=== PATIENT | female | born 1950 | race Caucasian/White ===

== ENCOUNTER → 2016-09-22 | Outpatient (CLI) | payer BC ==
--- NOTE | 2016-09-23 10:53 | MM ---
Reason for exam: screening (asymptomatic). Last mammogram was performed 1 year and 2 months ago. History: Patient is postmenopausal. Family history of breast cancer in aunt, breast cancer in mother at age 77, and breast cancer in cousin at age 55. Cyst aspiration of the right breast. Excisional biopsy of the left breast. Took estrogen for 12 years beginning at age 46. Physical Findings: A clinical breast exam by your physician is recommended on an annual basis and results should be correlated with mammographic findings. MG Screening Mammo w CAD Bilateral CC and MLO view(s) were taken. Prior study comparison: August 06, 2015, bilateral MG screening mammo w CAD. August 01, 2014, bilateral MG screening mammo w CAD. November 21, 2012, bilateral digital screening mammo w/CAD. The breast tissue is heterogeneously dense. This may lower the sensitivity of mammography. No significant changes when compared with prior studies. ASSESSMENT: Negative, BI-RAD 1 RECOMMENDATION: Routine screening mammogram of both breasts in 1 year.
== END | disposition home or self-care (01) ==
LOC: RADMAMWWP 12:04
PROVIDERS: ATTEND Family Medicine
DX: Z12.31 Encounter for screening mammogram for malignant neoplasm of breast (principal)

== ENCOUNTER → 2016-10-25 | Outpatient (CLI) | payer BC ==
[2016-10-25 13:12] LABS: Appearance,Urine Clear (Clear); Bilirubin,Urine Negative (Negative); Glucose,Urine (UA) Negative (Negative); Ketones,Urine Negative (Negative); Leukocyte Esterase,Urine Negative (Negative); Nitrite,Urine Negative (Negative); PH, Urine 5.5 (5.0-8.0); Protein,Urine Negative (Negative); Specific Gravity,Urine 1.002 (1.001-1.035); UA Billing (MACRO vs. MICRO) CHEM; Urobilinogen,Urine <2.0 mg/dL (<2.0)
[2016-10-25 13:18] LABS: Basophils % (A) 1 %; CH 31.7; CHCM 33.9; Eosinophils # (A) 0.1 k/uL (0-0.7); Eosinophils % (A) 2 %; HCT 38.4 % (34.0-46.0); HDW 2.37; HGB 12.6 gm/dL (11.4-16.0); Luc # (Auto) 0.13; Luc % (Auto) 2; Lymphocytes # (A) 2.7 k/uL (1.0-4.8); Lymphocytes % (A) 41 %; MCH 30.7 pg (25.0-35.0); MCHC 32.7 g/dL (31.0-37.0); MCV 93.9 fL (80.0-100.0); Mean Platelet Volume 7.7; Monocytes # (A) 0.3 k/uL (0-1.0); Monocytes % (A) 5 %; Neutrophils # (A) 3.2 k/uL (1.3-7.7); Neutrophils % (A) 49 %; RBC 4.09 m/uL (3.80-5.40); RDW 13.1 % (11.5-15.5); WBC 6.5 k/uL (3.8-10.6); WBC (Perox) 6.69
[2016-10-25 13:29] LABS: Anion Gap 8 mmol/L; Blood Urea Nitrogen 9 mg/dL (7-17); Calcium 9.6 mg/dL (8.4-10.2); Carbon Dioxide 27 mmol/L (22-30); Chloride 104 mmol/L (98-107); Glucose 86 mg/dL (74-99); Non-African American GFR(MDRD) >60 (>60 ml/min/1.73 sqM); Potassium 4.2 mmol/L (3.5-5.1); Sodium 139 mmol/L (137-145)
== END | disposition home or self-care (01) ==
LOC: LABPAT 11:51
PROVIDERS: ATTEND Urology
DX: Z01.812 Encounter for preprocedural laboratory examination (principal); N39.46 Mixed incontinence; E03.9 Hypothyroidism, unspecified; R31.29 Other microscopic hematuria; R35.0 Frequency of micturition
CPT/HCPCS: 80048; 81003; 85025; 87086

== ENCOUNTER 2016-12-01 07:38 | Observation (INO) | payer BC ==
[2016-11-25 14:16] VITALS: BMI 29.4
[~2016-12-01 07:38] MED LIST: DEXAMETHASONE SOD PHOSPHATE 10 MG/ML 1 ML VIAL IV ONE; HYDROmorphone 0.5 MG/0.5 ML SYRINGE IVP PRN; LACTATED RINGERS 1,000 ML IV SCH; MIDAZOLAM 2 MG/2 ML VIAL IV PRN; ONDANSETRON 4 MG/2 ML VIAL IVP ONE; ceFAZolin 1,000 MG in DEXTROSE/WATER 1 50ML.BAG IV ONE
[2016-12-01 08:18] LABS: Glucose,Whole Blood 108 mg/dL (75-99)
[2016-12-01] MEDS ORDERED: LIDOCAINE 1% 20 ML VIAL (10MG/ML) FOR IV START INTRADERMA ONE (08:19)
[2016-12-01] MEDS ORDERED: fentaNYL (PF) 50 MCG/ML 2 ML AMP ONE (09:33)
[2016-12-01] MEDS ORDERED: PROPOFOL 10 MG/ML 20 ML VIAL IV ONE (09:33)
[2016-12-01] MEDS ORDERED: MIDAZOLAM 2 MG/2 ML VIAL ONE (09:33)
[2016-12-01] MEDS ORDERED: LIDOCAINE 1% INJ 10MG/ML (20 ML MDV) ONE (09:33)
[2016-12-01] MEDS ORDERED: SUCCINYLCHOLINE CHLORIDE 100 MG/5 ML SYR IV ONE (09:33)
[2016-12-01] MEDS ORDERED: VASOPRESSIN 20 UNIT/ML 1 ML VIAL SQ ONE (09:52)
[2016-12-01] MEDS ORDERED: LACTATED RINGERS 1,000 ML IV ONE ×2 (10:03)
[2016-12-01] MEDS ORDERED: BACITRACIN 500 UNIT/GM OINT 28.4 GM TUBE TOPICAL ONE (10:08)
[2016-12-01] MEDS ORDERED: GENTAMICIN 80 MG in SODIUM CHLORIDE 0.9% 500 ML IRRIGATION ONE (10:09)
--- NOTE | 2016-12-01 10:29 | P.OP ---
Preoperative Diagnosis: Stress urinary incontinence Postoperative Diagnosis: Same Procedure(s) Performed: Trans-obturator tape (obtyrx 2) cystoscopy Anesthesia: BOB Surgeon: Carlton Coffman Estimated Blood Loss (ml): 50 Pathology: none sent Condition: stable Disposition: PACU Indications for Procedure: The patient is a 66-year-old female with documented stress urinary incontinence on history physical examination and urodynamic she comes for a trans-obturator tape the risks and complications of the tape and including the mesh controversy have been explained. The risks of infection bleeding pain dyspareunia failure erosion infection injury to adjacent organs have been explained and understood and accepted by this patient. Description of Procedure: The patient is brought to the operating suite. She is given a successful general endotracheal anesthesia. She's placed lithotomy position with sterile abdominal perineal and pelvic prep. A Del Rio catheters introduced sterilely. The labia are sewn laterally with 2-0 silk. A vaginal speculum is introduced. The anterior vaginal mucosa was elevated off the submucosa with 10 mL of a mixture of 20 units of Pitressin and 200 mL of saline. A midline incision is made I dissect lateral the bladder neck bilaterally. I then make 2 incisions in the inguinal crease at the level clitoris. I then pass the introducers through the decision through the obturator foramen around the issue pubic ramus into the vaginal space bilaterally making sure not to injure the vaginal wall. I then remove the Del Rio and perform cystoscopy to rule out bladder injury and there is none. Catheters replaced. Attached the trans-obturator tape to the introducers bilaterally and pull the apex back through the obturator foramen bilaterally. Graft sit in the mid urethra nicely. Then closed the vaginal mucosa with 2-0 Vicryl. I excised the redundant graft at the inguinal incisions bilaterally. The inguinal incisions are closed with 4-0 Vicryl. A vaginal packing is placed. The labial stitches are removed. The urine in the catheter remains clear. The patient is awakened and returned recovery room good condition. Blood loss is approximately 50 mL.
[2016-12-01 11:10] LABS: Glucose,Whole Blood 115 mg/dL (75-99)
[2016-12-01] MEDS: SODIUM CHLORIDE 0.45% 1,000 ML IV SCH (13:35)
[2016-12-01] MEDS: KETOROLAC 30 MG/ML 1 ML VIAL IVP PRN ×2 (14:43→21:13)
[2016-12-01] MEDS: metFORMIN 500 MG TAB PO SCH ×3 (15:22→18:34)
[2016-12-01] MEDS ORDERED: ACETAMINOPHEN TAB 325 MG TAB PO PRN (16:44)
[2016-12-01] MEDS: DICYCLOMINE 10 MG CAP PO SCH ×3 (17:00→21:40)
--- NOTE | 2016-12-01 17:11 | PN ---
PROGRESS NOTE This patient underwent surgery for bladder stress incontinence. The patient is complaining of some heaviness in the substernal area. Patient gives a history that she usually has this kind of heaviness whenever she takes any kind of opioid or narcotic drug. The patient had been evaluated by Dr. Mccabe as an outpatient. There is no definite prior history of myocardial infarction. Recent stress test was normal. Patient is comfortable. No respiratory distress is noted. Blood pressure is 122/78 mmHg. Heart rate, oxygen saturation is normal. First and second heart sounds are normal. Lungs are clear to auscultation and percussion. IMPRESSION: Persistent heaviness in the chest suggestive for atypical chest discomfort. We will repeat the EKG in the morning and get troponin q.6 hours x3. MMODL / IJN: [id number] /
[2016-12-01] MEDS ORDERED: PANTOPRAZOLE 40 MG TABLET PO SCH (18:15)
[2016-12-01] MEDS: cycloSPORINE 0.05% OPHTH 0.4 ML DROPERETTE BOTH EYES SCH (21:11)
[2016-12-02] MEDS: SODIUM CHLORIDE 0.45% 1,000 ML IV SCH (03:54)
[2016-12-02] MEDS ORDERED: LEVOTHYROXINE 100 MCG TAB PO SCH (06:30)
--- NOTE | 2016-12-02 06:50 | P.DS ---
Providers Date of admission: 12/01/16 21:36 Attending physician: Carlton Coffman Consults: 12/01/16 14:36 Consult Physician Stat Consulting Provider: Tessa Gerardo Consult Reason/Comments: chest pain post op Do you want consulting provider notified?: Yes Primary care physician: Stated None Hospital Course: The patient was admitted the hospital 12/01/2016 for a trans-obturator tape. She underwent this without difficulty. Postoperatively she had minimal surgical pain. She once again had an atypical chest pain which she contributes to narcotics. She has had this after every surgery over the years. I had cardiology see her. Her troponins were normal. Her EKG is normal. The patient voids well she'll be discharged home later today in care of her family limited activity. She'll resume her home medications. She'll follow in the office in one week. Tylenol for pain. Patient Condition at Discharge: Good Plan - Discharge Summary New Discharge Prescriptions: No Action Levothyroxine Sodium [Synthroid] 100 mcg PO QAM Celecoxib [CeleBREX] 200 mg PO DAILY Multivitamins, Thera [Multivitamin (formulary)] 1 tab PO DAILY cycloSPORINE [Restasis] 1 drop BOTH EYES BID Biotin 5,000 mcg PO HS Fish Oil/Dha/Epa [Fish Oil 1,200 mg Fish Oil] 1 cap PO DAILY metFORMIN HCL [Glucophage] 500 mg PO AC-SUPPER Potassium 99 mg PO DAILY metFORMIN HCL [Glucophage] 250 mg PO AC-LUNCH Dicyclomine [Bentyl] 10 mg PO TID Aspirin 81 mg PO DAILY Magnesium Oxide [Mag-Ox] 250 mg PO HS Dexlansoprazole [Dexilant] 30 mg PO HS Discharge Medication List Celecoxib [CeleBREX] 200 mg PO DAILY 12/25/13 [History] Levothyroxine Sodium [Synthroid] 100 mcg PO QAM 12/25/13 [History] Multivitamins, Thera [Multivitamin (formulary)] 1 tab PO DAILY 02/04/15 [History ] cycloSPORINE [Restasis] 1 drop BOTH EYES BID 04/21/15 [History] Biotin 5,000 mcg PO HS 10/25/16 [History] Fish Oil/Dha/Epa [Fish Oil 1,200 mg Fish Oil] 1 cap PO DAILY 10/25/16 [History] Potassium 99 mg PO DAILY 10/25/16 [History] metFORMIN HCL [Glucophage] 500 mg PO AC-SUPPER 10/25/16 [History] Dicyclomine [Bentyl] 10 mg PO TID 11/25/16 [History] metFORMIN HCL [Glucophage] 250 mg PO AC-LUNCH 11/25/16 [History] Aspirin 81 mg PO DAILY 12/01/16 [History] Dexlansoprazole [Dexilant] 30 mg PO HS 12/01/16 [History] Magnesium Oxide [Mag-Ox] 250 mg PO HS 12/01/16 [History] Follow up Appointment(s)/Referral(s): Carlton Coffman MD [STAFF PHYSICIAN] - 1 Week Activity/Diet/Wound Care/Special Instructions: Patient may shower. Resume home medications. Discharge Disposition: HOME SELF-CARE
[2016-12-02 08:09] VITALS: TEMP 98
[2016-12-02] MEDS: cycloSPORINE 0.05% OPHTH 0.4 ML DROPERETTE BOTH EYES SCH (09:44)
[2016-12-02] MEDS: DICYCLOMINE 10 MG CAP PO SCH (09:45)
[2016-12-02 11:20] VITALS: RESP 16
[2016-12-02] MEDS: metFORMIN 500 MG TAB PO SCH (12:58)
[2016-12-02 13:49] VITALS: BP 121/56; PULSE 62
== END 2016-12-02 15:20 | disposition home or self-care (01) ==
LOC: OR 07:38 → 6PED 09:40 → OR 21:36
PROVIDERS: ADMIT Urology; ATTEND Urology
DX: N39.3 Stress incontinence (female) (male) (principal); G89.18 Other acute postprocedural pain; R07.89 Other chest pain; R30.0 Dysuria; R35.0 Frequency of micturition; R35.1 Nocturia; E03.9 Hypothyroidism, unspecified; K21.9 Gastro-esophageal reflux disease without esophagitis; K44.9 Diaphragmatic hernia without obstruction or gangrene; M19.90 Unspecified osteoarthritis, unspecified site; M81.0 Age-related osteoporosis without current pathological fracture; M79.7 Fibromyalgia; Z90.710 Acquired absence of both cervix and uterus; Z79.82 Long term (current) use of aspirin; Z79.2 Long term (current) use of antibiotics; Z79.899 Other long term (current) drug therapy; Z88.5 Allergy status to narcotic agent; Z90.721 Acquired absence of ovaries, unilateral; Z79.1 Long term (current) use of non-steroidal anti-inflammatories (NSAID)
CPT/HCPCS: 57288; 93005 ×2; 84484 ×2; G0378 ×2; C1771; J2250; J1580; J1100; J2405; J2001; J3010; J1885; J0690; J0330; J2704

== ENCOUNTER 2017-04-12 07:36 | Day surgery (SDC) | payer BC ==
[2017-04-11 08:29] VITALS: BMI 29.2
[~2017-04-12 07:36] MED LIST changes: -DEXAMETHASONE SOD PHOSPHATE 10 MG/ML 1 ML VIAL IV ONE; -HYDROmorphone 0.5 MG/0.5 ML SYRINGE IVP PRN; -MIDAZOLAM 2 MG/2 ML VIAL IV PRN; -ONDANSETRON 4 MG/2 ML VIAL IVP ONE; -ceFAZolin 1,000 MG in DEXTROSE/WATER 1 50ML.BAG IV ONE
[2017-04-12] MEDS ORDERED: LACTATED RINGERS 1,000 ML IV ONE (07:50)
[2017-04-12 07:52] VITALS: TEMP 98.3
[2017-04-12 08:20] LABS: Glucose,Whole Blood 115 mg/dL (75-99)
[2017-04-12] MEDS ORDERED: LIDOCAINE 1% INJ 10MG/ML (20 ML MDV) ONE (08:37)
[2017-04-12] MEDS ORDERED: PROPOFOL 10 MG/ML 20 ML VIAL IV ONE (08:37)
[2017-04-12] MEDS ORDERED: GLYCOPYRROLATE 0.2 MG/ML 2 ML VIAL ONE (08:37)
--- NOTE | 2017-04-12 09:11 | P.PCN ---
Date of Procedure: 04/12/17 Procedure(s) Performed: Procedure: Esophagogastroduodenoscopy and biopsy. Preoperative diagnosis: Chronic reflux symptoms. Postoperative diagnosis: 1. Small sliding hiatal hernia with no obvious esophagitis or complicated reflux disease. 2. Mild antral gastritis. 3. Multiple biopsies obtained from the duodenum, antrum and esophagus. Preparation sedation: Was provided by anesthesia. Brief clinical history: The patient is a 66-year-old female who is scheduled for this evaluation because of chronic reflux symptoms and issues with swallowing. The patient has history of RA, fibromyalgia and connective tissue disorders and has been evaluated in February 2015 because of reflux issues and hiatal hernia and a motility study showed ineffective esophageal peristalsis and low lower esophageal sphincter pressure. This evaluation is to assess for esophagitis, strictures or other pathology. Procedure: With the patient on her left lateral decubitus position and after informed consent and adequate sedation, I passed the Olympus-GIF 160 video upper endoscope through the cricopharyngeus down the esophagus gastroesophageal junction was at around 36 cm from the incisors and there was a small 1-2 cm sliding hiatal hernia. The esophagus did not show any obvious erosions, ulcers , strictures or Alvarez's esophagus. Occasionally, I had to suction secretions that would pool in the esophagus during the exam raising the possibility of decreased motility. The endoscope was then passed into the stomach which was insufflated with air and inspected in detail including the retroflex view in the cardia. There was some mottling and erythema in the antrum but no ulcers or erosions. Pyloric channel, duodenal bulb, post bulbar area and descending duodenum appeared within normal limits. Because of her symptoms, I obtained biopsies from the duodenum, antrum and esophagus then the endoscope was withdrawn. The patient tolerated the procedure well. Plan: The patient was reassured. Will await pathology results and make further plans based on her course and biopsy results. She will follow-up with you as planned and I would be happy to see in the office if her symptoms persist.
[2017-04-12 09:30] VITALS: BP 114/74; PULSE 77; RESP 16
== END 2017-04-12 09:55 | disposition home or self-care (01) ==
LOC: ORWHC2ENDO 07:36
DX: K31.89 Other diseases of stomach and duodenum (principal); K44.9 Diaphragmatic hernia without obstruction or gangrene; K21.9 Gastro-esophageal reflux disease without esophagitis; M79.7 Fibromyalgia; M06.9 Rheumatoid arthritis, unspecified; M35.9 Systemic involvement of connective tissue, unspecified; E11.9 Type 2 diabetes mellitus without complications; E07.9 Disorder of thyroid, unspecified; Z79.84 Long term (current) use of oral hypoglycemic drugs; Z79.82 Long term (current) use of aspirin; Z79.899 Other long term (current) drug therapy; Z88.5 Allergy status to narcotic agent; Z91.09 Other allergy status, other than to drugs and biological substances
CPT/HCPCS: 88305; 43239; J2001; J2704

== ENCOUNTER 2018-08-16 07:08 | Day surgery (SDC) | payer MEDICARE ==
[~2018-08-16 07:08] MED LIST changes: +LIDOCAINE 1% 20 ML VIAL (10MG/ML) FOR IV START INTRADERMA PRN
[2018-08-16 07:22] VITALS: TEMP 97.4
[2018-08-16 07:26] LABS: Glucose,Whole Blood 116 mg/dL (75-99)
[2018-08-16] MEDS ORDERED: PROPOFOL 10 MG/ML 20 ML VIAL IV ONE (07:42)
--- NOTE | 2018-08-16 08:08 | P.PCN ---
Date of Procedure: 08/16/18 Procedure(s) Performed: BRIEF HISTORY: Patient is a 67-year-old pleasant female, scheduled for an elective colonoscopy as a part of screening for colorectal rectal neoplasia. PROCEDURE PERFORMED: Colonoscopy with snare polypectomy. PREOPERATIVE DIAGNOSIS: Screening for colon cancer. IV sedation per Anesthesia. PROCEDURE: After informed consent was obtained, the patient, was brought into the endoscopy unit. IV sedation was administered by Anesthesia under continuous monitoring. Digital rectal examination was normal. Initially the Olympus CF-160 flexible video colonoscope was then inserted in the rectum, gradually advanced into the cecum without any difficulty. Careful examination was performed as the scope was gradually being withdrawn. Ileocecal valve and the appendiceal orifice were visualized and appeared normal. Prep was excellent. Mucosa of the cecum, ascending colon, transverse colon, descending colon, sigmoid colon, and rectum appeared normal. In the distal rectum there was a 5 mm sessile polyp that was removed by snare polypectomy. Retroflexion was performed in the rectum and no lesions were seen. The patient tolerated the procedure well. IMPRESSION: 5 mm distal rectal polyp status post polypectomy Rest of the colon appeared normal RECOMMENDATIONS: Findings of this examination were discussed with the patient as well as a family. She was advised to follow with the biopsy results. If the biopsy shows adenoma, she can have a repeat colonoscopy in 5 years.
[2018-08-16 08:26] VITALS: BP 131/70; PULSE 60; RESP 18
== END 2018-08-16 09:07 | disposition home or self-care (01) ==
LOC: ORWHC2ENDO 07:08
PROVIDERS: ATTEND Internal Medicine Gastroenterology
DX: Z12.11 Encounter for screening for malignant neoplasm of colon (principal); K62.1 Rectal polyp; E11.9 Type 2 diabetes mellitus without complications; E07.9 Disorder of thyroid, unspecified; M06.9 Rheumatoid arthritis, unspecified; M79.7 Fibromyalgia; Z88.8 Allergy status to other drugs, medicaments and biological substances; Z88.5 Allergy status to narcotic agent
CPT/HCPCS: 88305; 45385; J2704

== ENCOUNTER → 2019-01-23 | Outpatient (CLI) | payer MEDICARE ==
--- NOTE | 2019-01-23 15:30 | BD ---
EXAMINATION TYPE: Axial Bone Density DATE OF EXAM: 01/23/2019 COMPARISON: NONE CLINICAL HISTORY: Z 78.0 Height: 63.5 Weight: 182 FRAX RISK QUESTIONS: Alcohol (3 or more units per day): no Family History (Parent hip fracture): yes Glucocorticoids (More than 3mos): inhaler occasionally (Ex: prednisone, prednisolone, methylprednisolone, dexamethasone, and hydrocortisone). History of Fracture in Adulthood: no Secondary Osteoporosis: 1. Type 1 Diabetes: no 2. Hyperthyroidism: no 3. Menopause before 45: yes 4. Malnutrition: no 5. Chronic liver disease: no Rheumatoid Arthritis: unsure Current Tobacco Use: no RISK FACTORS HISTORY OF: Family History of Osteoporosis: not to knowledge of patient Active: yes Diet low in dairy products/other sources of calcium: no Postmenopausal woman: yes Take estrogen and/or progesterone medications: not now How long: age [age] Lost more than 2 inches in height since high school: no Frequent falls: no Poor Health: no Hyperparathyroidism: no Adrenal Insufficiency: no MEDICATIONS: Prednisone or other steroids: occasionally inhaler Thyroid Medications: yes Which medication: Levothyroxine How Long: well over 5 years, perhaps more Osteoporosis Medications: no Additional Medications: vitamin D, GERD med, cholesterol med; metformin; Lisinopril, celebrex Additional History: one side of thyroid removed-nodules; bilateral knee replacements; type 2 diabetic EXAM MEASUREMENTS: Bone mineral densitometry was performed using the [employer] System. Bone mineral density as measured about the Lumbar spine is: ----- L1-L4(G/cm2): 1.498 T Score Values are as follows: ----- L2: 2.3 ----- L3: 3.9 ----- L4: 2.9 ----- L1-L4: 2.6 Bone mineral density no previous at this facility; previous elsewhere Bone mineral density about the R hip (g/cm2): 1.079 Bone mineral density about the L hip (g/cm2): 1.191 T Score values are as follows: -----R Neck: 0.3 -----L Neck: 1.1 -----R Total: 1.4 -----L Total: 1.7 Bone mineral density no previous at this facility; previous elsewhere IMPRESSION: Normal (Values between +1 and -1 indicate normal bone mass). Consider repeating this study in 5 year s or sooner if there is some new clinical indication. NOTE: T-SCORE=SD OF THE YOUNG ADULT MEAN.
== END | disposition home or self-care (01) ==
LOC: RADBDWWP 13:13
PROVIDERS: ATTEND Internal Medicine
DX: Z78.0 Asymptomatic menopausal state (principal)
CPT/HCPCS: 77080

== ENCOUNTER → 2019-02-28 | Outpatient (CLI) | payer MEDICARE ==
--- NOTE | 2019-03-01 14:21 | MM ---
Reason for exam: additional evaluation requested from abnormal screening. Last mammogram was performed less than 1 month ago. History: Patient is postmenopausal. Family history of breast cancer in aunt, breast cancer in mother at age 77, and breast cancer in cousin at age 55. Cyst aspiration of the right breast. Excisional biopsy of the left breast. Took estrogen for 12 years beginning at age 46. Physical Findings: Nurse did not find any significant physical abnormalities on exam. MG 3D Work Up W/Cad RT Spot compression CC, spot compression MLO, and ML view(s) were taken of the right breast. Prior study comparison: February 19, 2019, bilateral MG screening mammo w CAD. September 22, 2016, bilateral MG screening mammo w CAD. The breast tissue is heterogeneously dense. This may lower the sensitivity of mammography. Finding #1: There is a 9 mm mass in the upper quadrant, central position of the right breast. Finding #2: There are typically benign calcifications in the right breast. These results were verbally communicated with the patient and result sheet given to the patient on 02/28/19. ASSESSMENT: Incomplete: need additional imaging evaluation, BI-RAD 0 RECOMMENDATION: Ultrasound of the right breast.
--- NOTE | 2019-03-01 14:23 | USB ---
Reason for exam: additional evaluation requested from abnormal screening. History: Patient is postmenopausal. Family history of breast cancer in aunt, breast cancer in mother at age 77, and breast cancer in cousin at age 55. Cyst aspiration of the right breast. Excisional biopsy of the left breast. Took estrogen for 12 years beginning at age 46. US Breast Workup Limited RT Right limited breast ultrasound including focal area of concern, retroareolar and axilla demonstrates a 0.8 x 0.6 x 0.5cm oval, hypoechoic lesion at 12 o'clock, no increase through transmission. These results were verbally communicated with the patient and result sheet given to the patient on 02/28/19. ASSESSMENT: Suspicious, BI-RAD 4 RECOMMENDATION: Ultrasound core biopsy of the right breast. (+/- FNA) Called Dr. Fox's office with mammographic findings. Biopsy scheduled for 03/19/19 at 12:20. PRELIMINARY REPORT CALLED AND FAXED TO DR. FOX ON 03/01/19.
== END | disposition home or self-care (01) ==
LOC: RADMAMWWP 14:50
PROVIDERS: ATTEND Internal Medicine
DX: R92.8 Other abnormal and inconclusive findings on diagnostic imaging of breast (principal)
CPT/HCPCS: 77065; 76642; G0279; 77061

== ENCOUNTER → 2019-03-19 | Day surgery (SDC) | payer MEDICARE ==
[2019-03-19 11:34] VITALS: BP 139/83; PULSE 71; RESP 16; TEMP 98.5
--- NOTE | 2019-03-19 13:05 | USB ---
EXAMINATION TYPE: US biopsy breast VAD RT, MG diagnostic mammo RT wo CAD DATE OF EXAM: 03/19/2019 CLINICAL HISTORY: R92.8 Abnormal Mammogram. TECHNIQUE: Ultrasound guided core biopsy of right breast. COMPARISON: Ultrasound of the right breast dated 02/28/2019 FINDINGS: The procedure of ultrasound guided core biopsy was explained to the patient. Benefits, alternatives, and risks were discussed. An informed consent was then obtained. Preprocedural timeout was performed. The patient was placed in supine positioning for imaging and for the procedure. The overlying skin was prepped and draped in usual sterile fashion. 10 cc of 1% lidocaine was used as anesthetic into the skin and subcutaneous tissue up an 8mm hypoechoic mass at the 12:00 position in the right breast in zone A. Under ultrasound guidance, a 12-gauge vacuum assisted biopsy gun device was used to obtain 4 core samples after unsuccessful attempt at aspiration with an 18- gauge spinal needle. Following this, a coil-shaped biopsy marker was left in the mass. Postprocedure mammogram demonstrates appropriate biopsy marker placement concordant with the mammographic mass. The patient tolerated the procedure well without any immediate complication. The patient was kept in the radiology department for short stay after the procedure and then discharged home in stable condition. IMPRESSION: Successful, uncomplicated ultrasound guided core biopsy of area of an 8 mm right breast mass at the 12:00 position, full pathology results to follow. Pathology Results: Benign RIGHT BREAST, NEEDLE CORE BIOPSY: Benign breast parenchyma with fibroadenomatoid hyperplasia and apocrine metaplasia. Recommendation Follow up mammogram of the right breast in 6 months. ARMIN
== END ==
LOC: RADUSWWP 11:17
PROVIDERS: ATTEND Internal Medicine
DX: D24.1 Benign neoplasm of right breast (principal); N60.81 Other benign mammary dysplasias of right breast
CPT/HCPCS: 88305; 77065; 19083; A4648; J2001

== ENCOUNTER → 2019-12-07 | Outpatient (CLI) | payer MEDICARE ==
[2019-12-08 01:21] LABS: Chol/HDL Ratio 2.5
== END | disposition home or self-care (01) ==
LOC: LABWHC1 14:11
PROVIDERS: ATTEND Internal Medicine Clinical Cardiac Electrophysiology
DX: E78.5 Hyperlipidemia, unspecified (principal)
CPT/HCPCS: 36415; 80061

== ENCOUNTER → 2019-12-07 | Outpatient (CLI) | payer MEDICARE ==
--- NOTE | 2019-12-07 14:22 | MM ---
Reason for exam: follow-up at short interval from prior study. Last mammogram was performed 9 months ago. History: Patient is postmenopausal. Family history of breast cancer in aunt, breast cancer in mother at age 77, and breast cancer in cousin at age 55. Benign US biopsy breast VAD RT of the right breast, March 19, 2019. Cyst aspiration of the right breast. Excisional biopsy of the left breast. Took estrogen for 12 years beginning at age 46. Physical Findings: Nurse did not find any significant physical abnormalities on exam. MG 3D Diag Mammo W/Cad RT CC and MLO view(s) were taken of the right breast. Prior study comparison: March 19, 2019, right breast MG diagnostic mammo RT wo CAD. February 28, 2019, right breast MG 3d work up w/cad RT. The breast tissue is heterogeneously dense. This may lower the sensitivity of mammography. Finding: There are typically benign vascular calcifications in the upper outer quadrant of the right breast. Previous mammotome biopsy in the right breast. There is no discrete abnormality. These results were verbally communicated with the patient and result sheet given to the patient on 12/07/19. ASSESSMENT: Benign, BI-RAD 2 RECOMMENDATION: Return to routine screening mammogram schedule for both breasts. Back on schedule for February 2020.
== END | disposition home or self-care (01) ==
LOC: RADMAMWWP 13:19
PROVIDERS: ATTEND Internal Medicine
DX: R92.8 Other abnormal and inconclusive findings on diagnostic imaging of breast (principal)
CPT/HCPCS: 77065; G0279; 77061

== ENCOUNTER → 2020-05-13 | Outpatient (CLI) | payer MEDICARE ==
--- NOTE | 2020-05-15 10:56 | MM ---
Reason for exam: screening (asymptomatic). Last mammogram was performed 5 months ago. History: Patient is postmenopausal. Family history of breast cancer in aunt, breast cancer in mother at age 77, and breast cancer in cousin at age 55. Benign US biopsy breast VAD RT of the right breast, March 19, 2019. Cyst aspiration of the right breast. Excisional biopsy of the left breast. Took estrogen for 12 years beginning at age 46. Physical Findings: A clinical breast exam by your physician is recommended on an annual basis and results should be correlated with mammographic findings. MG 3D Screening Mammo W/Cad Bilateral CC and MLO view(s) were taken. Prior study comparison: December 07, 2019, right breast MG 3d diag mammo w/cad RT. March 19, 2019, right breast MG diagnostic mammo RT wo CAD. No significant changes when compared with prior studies. ASSESSMENT: Benign, BI-RAD 2 RECOMMENDATION: Routine screening mammogram of both breasts in 1 year.
== END | disposition home or self-care (01) ==
LOC: RADMAMWWP 13:59
PROVIDERS: ATTEND Internal Medicine
DX: Z12.31 Encounter for screening mammogram for malignant neoplasm of breast (principal); Z78.0 Asymptomatic menopausal state; Z80.3 Family history of malignant neoplasm of breast
CPT/HCPCS: 77063; 77067

== ENCOUNTER → 2021-07-27 | Outpatient (CLI) | payer MEDICARE ==
--- NOTE | 2021-07-27 17:43 | BD ---
EXAMINATION TYPE: Axial Bone Density DATE OF EXAM: 07/27/2021 COMPARISON: 01/23/2019 CLINICAL HISTORY: 70 years year old Female. ICD-10 CODE: M81.0 AGE-RELATED OSTEOPOROSIS Height: 63 IN Weight: 174 LBS FRAX RISK QUESTIONS: Family History (Parent hip fracture): YES MOTHER Secondary Osteoporosis: 3. Menopause before 45: PARTIAL HYST AGE 31 Rheumatoid Arthritis: YES RISK FACTORS HISTORY OF: Active: YES Diet low in dairy products/other sources of calcium: YES Postmenopausal woman: PARTIAL HYST AGE 31 Take estrogen and/or progesterone medications: NOT NOW How long: TOOK FOR 10 YEARS MEDICATIONS: Thyroid Medications: YES Which medication: Levothyroxine How Lon YEARS Additional Medications: CALCIUM, VIT D, CELEBREX, LEVOTHYROXINE, FARXIGA, OMEPRAZOLE, FAMOTIDINE, [place], PRAVASTATIN, MONTELUKAST, SYMBICORT,MAGNESIUM, POTASIUM, MELATONIN, EXAM MEASUREMENTS: Bone mineral densitometry was performed using the [employer] System. Bone mineral density as measured about the Lumbar spine is: ----- L1-L4(G/cm2): 1.445 T Score Values are as follows: ----- L1: 0.3 ----- L2: 1.8 ----- L3: 3.0 ----- L4: 3.0 ----- L1-L4: 2.2 Bone mineral density has: Decreased -3.0% since study of: 01/23/2019 Bone mineral density about the R hip (g/cm2): 1.080 Bone mineral density about the L hip (g/cm2): 1.177 T Score values are as follows: -----R Neck: 0.3 -----L Neck: 1.0 -----R Total: 1.2 -----L Total: 1.7 Bone mineral density has: Decreased -0.7% since study of: 01/23/2019 FRAX%s: The graph provided illustrates a 12.9 chance for a major osteoporotic fx and a 0.7 chance for the hips probability for fx in 10 years time. IMPRESSION: Normal (Values between +1 and -1 indicate normal bone mass). Consider repeating this study in 5 year s or sooner if there is some new clinical indication. NOTE: T-SCORE=SD OF THE YOUNG ADULT MEAN.
--- NOTE | 2021-07-28 09:29 | MM ---
Reason for Exam: Screening (asymptomatic). Last mammogram was performed 1 year(s) and 2 month(s) ago. Patient History: Menarche at age 13. First Full-Term at age 25. Left ovary removed at age 31. Right ovary removed at age 31. Hysterectomy at age 31. Postmenopausal. Estrogen for 12 years from age 46 until age 58. Cyst Aspiration on the Right side. Excisional Biopsy on the Left side. 03/19/2019, Benign Core Biopsy on the right side. Maternal cousin had breast cancer, age 55. Maternal aunt had breast cancer, age 50. Mother had breast cancer, age 77. Risk Values: Chasidy 5 year model risk: 4.9%. NCI Lifetime model risk: 14.5%. Prior Study Comparison: 03/19/2019 Right Diagnostic Mammogram, [facility]. 12/07/2019 Right Diagnostic Mammogram, [facility]. 05/13/2020 Bilateral Screening Mammogram, [facility]. Tissue Density: The breast tissue is heterogeneously dense. This may lower the sensitivity of mammography. Findings: Analyzed By CAD. There is no suspicious group of microcalcifications or new suspicious mass in either breast. Benign calcifications noted. Surgical clip in the right breast. Overall Assessment: Benign, BI-RAD 2 Management: Screening Mammogram of both breasts in 1 year. A clinical breast exam by your physician is recommended on an annual basis and results should be correlated with mammographic findings. Electronically signed and approved by: Román Kumar M.D. Radiologis
== END | disposition home or self-care (01) ==
LOC: RADMAMWWP 09:03
PROVIDERS: ATTEND Internal Medicine
DX: Z12.31 Encounter for screening mammogram for malignant neoplasm of breast (principal); Z78.0 Asymptomatic menopausal state; Z80.3 Family history of malignant neoplasm of breast
CPT/HCPCS: 77063; 77067; 77080

== ENCOUNTER → 2022-07-28 | Outpatient (CLI) | payer MEDICARE ==
--- NOTE | 2022-07-29 20:33 | MM ---
Reason for Exam: Screening (asymptomatic). Last screening mammogram was performed 12 month(s) ago. Patient History: Menarche at age 13. First Full-Term at age 25. Left ovary removed at age 31. Right ovary removed at age 31. Hysterectomy at age 31. Postmenopausal. Estrogen for 12 years from age 46 until age 58. Cyst Aspiration on the Right side. Excisional Biopsy on the Left side. 03/19/2019, Benign Core Biopsy on the right side. Maternal cousin had breast cancer, age 55. Maternal aunt had breast cancer, age 50. Mother had breast cancer, age 77. Risk Values: Chasidy 5 year model risk: 4.9%. NCI Lifetime model risk: 13.9%. Prior Study Comparison: 12/07/2019 Right Diagnostic Mammogram, [facility]. 05/13/2020 Bilateral Screening Mammogram, [facility]. 07/27/2021 Bilateral MG 3D screening mammo w/cad, [facility]. Tissue Density: The breast tissue is heterogeneously dense. This may lower the sensitivity of mammography. Findings: Analyzed By CAD. Microclip on the right from prior biopsy. Areas of asymmetric density remain unchanged. There is no suspicious group of microcalcifications or new suspicious mass in either breast. Overall Assessment: Benign, BI-RAD 2 Management: Screening Mammogram of both breasts in 1 year. See note below in regards to patient's increased 5 year Chasidy score. Patient should continue monthly self-breast exams. A clinical breast exam by your physician is recommended on an annual basis. This exam should not preclude additional follow-up of suspicious palpable abnormalities. Note on Chasidy scores and lifetime risk: 1. A Chasidy score greater than 3% is considered moderate risk. If this is the case, consider specialist referral to assess eligibility for a risk reducing agent. 2. If overall lifetime risk for the development of breast cancer is 20% or higher, the patient may qualify for future screening with alternating mammogram and breast MRI. Electronically signed and approved by: Sharifa Mason M.D. Radiologist
== END | disposition home or self-care (01) ==
LOC: RADMAMWWP 09:36
PROVIDERS: ATTEND Internal Medicine
DX: Z12.31 Encounter for screening mammogram for malignant neoplasm of breast (principal); Z80.3 Family history of malignant neoplasm of breast; Z78.0 Asymptomatic menopausal state
CPT/HCPCS: 77063; 77067

== ENCOUNTER 2022-08-09 07:29 | Emergency (ER) | payer MEDICARE ==
[2022-08-09] MEDS ORDERED: SODIUM CHLORIDE 0.9% 1,000 ML IV ONE (08:15)
[2022-08-09] MEDS ORDERED: methylPREDNISolone SOD SUCCI 125 MG/2 ML VIAL IV STA (08:15)
[2022-08-09 08:37] LABS: Basophils % (A) 0 %; Eosinophils # (A) 0.1 k/uL (0-0.7); Eosinophils % (A) 1 %; HCT 38.6 % (34.0-46.0); HGB 12.6 gm/dL (11.4-16.0); Lymphocytes # (A) 0.9 k/uL (1.0-4.8); Lymphocytes % (A) 12 %; MCH 30.3 pg (25.0-35.0); MCHC 32.5 g/dL (31.0-37.0); MCV 93.2 fL (80.0-100.0); Mean Platelet Volume 8.1; Monocytes # (A) 0.4 k/uL (0-1.0); Monocytes % (A) 5 %; Neutrophils # (A) 5.8 k/uL (1.3-7.7); Neutrophils % (A) 79 %; Platelet Count 214 k/uL (150-450); RBC 4.14 m/uL (3.80-5.40); WBC 7.3 k/uL (3.8-10.6)
[2022-08-09 08:50] LABS: ALT 20 U/L (4-34); AST 23 U/L (14-36); African American GFR (CKD) >90 (>60 ml/min/1.73 sqM); Alkaline Phosphatase 62 U/L (38-126); Anion Gap 8 mmol/L; Blood Urea Nitrogen 12 mg/dL (7-17); Calcium 8.3 mg/dL (8.4-10.2); Carbon Dioxide 23 mmol/L (22-30); Chloride 107 mmol/L (98-107); Glucose 120 mg/dL (74-99); Non-African American GFR(CKD) 80 (>60 ml/min/1.73 sqM); Potassium 4.2 mmol/L (3.5-5.1); Sodium 138 mmol/L (137-145); Total Bilirubin 0.3 mg/dL (0.2-1.3); Total Protein 7.2 g/dL (6.3-8.2)
--- NOTE | 2022-08-09 08:55 | XR ---
EXAMINATION TYPE: XR chest 2V DATE OF EXAM: 08/09/2022 COMPARISON: None INDICATION: Cough x4 days pain TECHNIQUE: Frontal and lateral views of the chest are obtained. FINDINGS: The heart size is normal. The pulmonary vasculature is normal. The lungs are clear. IMPRESSION: 1. No acute pulmonary process.
[2022-08-09] MEDS ORDERED: IPRATROPIUM-ALBUTEROL 3 ML NEB INHALATION STA (09:27)
--- NOTE | 2022-08-09 09:51 | ED ---
General Adult HPI - General Chief complaint: Upper Respiratory Infection Stated complaint: sob,cough Time Seen by Provider: 08/09/22 07:48 Source: patient, family Mode of arrival: wheelchair Limitations: no limitations - History of Present Illness Initial comments: 71-year-old female presents emergency Department with report of cough, congestion and shortness of breath for the past 2 days. Her mother has similar symptoms and is hospitalized. Patient does have a history of mild intermittent asthma. She has been using her albuterol nebulizer with only some improvement in her symptoms. She denies fevers. No nausea or vomiting. Has had mild diarr hea. No black or bloody stools. No chest pain. She did take a Covid test at home yesterday which was negative. No other alleviating, precipitating or modifying factors - Related Data Home Medications Medication Instructions Recorded Confirmed Celecoxib [CeleBREX] 200 mg PO HS 12/25/13 08/12/22 Levothyroxine Sodium [Synthroid] 100 mcg PO DAILY 12/25/13 08/12/22 Montelukast [Singulair] 10 mg PO HS 08/15/18 08/12/22 Omeprazole 20 mg PO BID 08/15/18 08/12/22 Pravastatin Sodium [Pravachol] 20 mg PO HS 08/15/18 08/12/22 Losartan [Cozaar] 12.5 mg PO DAILY 03/08/19 08/12/22 Albuterol Inhaler [Ventolin Hfa 2 puff INHALATION RT-QID PRN 08/12/22 08/12/22 Inhaler] Dapagliflozin Propanediol [Farxiga] 5 mg PO DAILY 08/12/22 08/12/22 Famotidine [Pepcid] 40 mg PO HS 08/12/22 08/12/22 Ipratropium Nebulized [Atrovent 0.5 mg INHALATION RT-Q6H PRN 08/12/22 08/12/22 Nebulized 0.2 MG/ML] Previous Rx's Medication Instructions Recorded predniSONE [Deltasone] 20 mg PO BID #10 tab 08/09/22 Benzonatate [Tessalon Perles] 200 mg PO TID #21 cap 08/16/22 predniSONE [Deltasone] 40 mg PO DAILY #20 tab 08/16/22 Allergies Allergy/AdvReac Type Severity Reaction Status Date / Time cigarette smoke Allergy Unknown Dyspnea Verified 08/12/22 06:59 Opioids - Morphine Analogues Allergy Dyspnea Verified 08/12/22 06:59 tramadol Allergy Anaphylaxis, Verified 08/12/22 06:59 chest pain codeine AdvReac Anaphylaxis, Verified 08/12/22 06:59 chest pain cleaning chemicals AdvReac Mild Dyspnea Uncoded 08/12/22 06:59 Review of Systems ROS Statement: Those systems with pertinent positive or pertinent negative responses have been documented in the HPI. ROS Other: All systems not noted in ROS Statement are negative. Past Medical History Past Medical History: Asthma, Diabetes Mellitus, Fibromyalgia, GERD/Reflux, Rheumatoid Arthritis (RA), Thyroid Disorder Additional Past Medical History / Comment(s): covid X2 12/29 History of Any Multi-Drug Resistant Organisms: None Reported Past Surgical History: Bladder Surgery, Cholecystectomy, Heart Catheterization, Hysterectomy, Joint Replacement, Orthopedic Surgery Additional Past Surgical History / Comment(s): partial thyroidectomy. luis shoulder surgery, luis knee arthroscopy, bilateral knee replacement, luis cataracts, rt.trigger finger, Past Anesthesia/Blood Transfusion Reactions: Motion Sickness, Postoperative Nausea & Vomiting (PONV) Additional Past Anesthesia/Blood Transfusion Reaction / Comment(s): DIFFICULTY WAKING UP. PT CAN'T TOLERATE OPIOIDS. WAKES UP AFTER SURGERY WITH CHEST PAIN WHEN EVER GIVEN OPIOIDS. Past Psychological History: No Psychological Hx Reported Smoking Status: Never smoker Past Alcohol Use History: Occasional Past Drug Use History: None Reported - Past Family History Father Family Medical History: Cancer Additional Family Medical History / Comment(s): lung Mother Family Medical History: Cancer Additional Family Medical History / Comment(s): breast Sister(s) Family Medical History: Cancer Additional Family Medical History / Comment(s): SKIN CA General Exam Limitations: no limitations General appearance: alert, in no apparent distress Head exam: Present: atraumatic, normocephalic, normal inspection Eye exam: Present: normal appearance, PERRL, EOMI. Absent: scleral icterus, conjunctival injection, periorbital swelling ENT exam: Present: normal exam, mucous membranes moist Neck exam: Present: normal inspection. Absent: tenderness, meningismus, lymphad enopathy Respiratory exam: Present: wheezes (mild), other (no respiratory distress). Absent: respiratory distress, rales, rhonchi, stridor Cardiovascular Exam: Present: regular rate, normal rhythm, normal heart sounds. Absent: systolic murmur, diastolic murmur, rubs, gallop, clicks GI/Abdominal exam: Present: soft, normal bowel sounds. Absent: distended, tenderness, guarding, rebound, rigid Extremities exam: Present: normal inspection, full ROM, normal capillary refill. Absent: tenderness, pedal edema, joint swelling, calf tenderness Back exam: Present: normal inspection Neurological exam: Present: alert, oriented X3, CN II-XII intact Psychiatric exam: Present: normal affect, normal mood Skin exam: Present: warm, dry, intact, normal color. Absent: rash Course Vital Signs 08/09/22 08/09/22 08/09/22 07:41 08:26 09:44 Temperature 99.7 F H Pulse Rate 95 82 86 Respiratory 18 20 Rate Blood Pressure 112/61 108/56 O2 Sat by Pulse 94 L 96 Oximetry 08/09/22 08/09/22 09:56 10:07 Temperature 98.5 F Pulse Rate 90 82 Respiratory 18 Rate Blood Pressure 111/54 O2 Sat by Pulse 94 L Oximetry Medical Decision Making - Medical Decision Making Was pt. sent in by a medical professional or institution (, PA, HOSIERY KNITTER, urgent care, hospital, or prison...) When possible be specific @ -No Did you speak to anyone other than the patient for history (EMS, parent, family, police, friend...)? What history was obtained from this source @ - Did you review nursing and triage notes (agree or disagree)? Why? @ -I reviewed and agree with nursing and triage notes Were old charts reviewed (outside hosp., previous admission, EMS record, old EKG, old radiological studies, urgent care reports/EKG's, prison records)? Report findings @ -No old charts were reviewed Differential Diagnosis (chest pain, altered mental status, abdominal pain women, abdominal pain men, vaginal bleeding, weakness, fever, dyspnea, syncope, headache, dizziness, GI bleed, back pain, seizure, CVA, palpatations, mental health, musculoskeletal)? @ -covid, influenza, uri, pneumonia, asthma exacerbation EKG interpreted by me (3pts min.). @ -Yes and demonstrates sinus rhythm with sinus arrhythmia. Rate of 68. ID interval 130. QRS 92. QTC of 409. No acute ST segment elevations or depressions X-rays interpreted by me (1pt min.). @ -yes. no pneumonia CT interpreted by me (1pt min.). @ -None done U/S interpreted by me (1pt. min.). @ -None done What testing was considered but not performed or refused? (CT, X-rays, U/S, labs)? Why? @ -None What meds were considered but not given or refused? Why? @ -codeine cough syrup Did you discuss the management of the patient with other professionals (professionals i.e. , PA, HOSIERY KNITTER, lab, RT, psych nurse, social work job titles, bpm architect, teacher, radiation safety officer, case fitter)? Give summary @ -No Was smoking cessation discussed for >3mins.? @ -No Was critical care preformed (if so, how long)? @ -No Were there social determinants of health that impacted care today? How? (Homelessness, low income, unemployed, alcoholism, drug addiction, transportation, low edu. Level, literacy, decrease access to med. care, group home, rehab)? @ -No Was there de-escalation of care discussed even if they declined (Discuss DNR or withdrawal of care, Hospice)? DNR status @ -No What co-morbidities impacted this encounter? (DM, HTN, Smoking, COPD, CAD, Cancer, CVA, ARF, Chemo, Hep., AIDS, mental health diagnosis, sleep apnea, morbid obesity)? @ -asthma Was patient admitted / discharged? Hospital course, mention meds given and route, prescriptions, significant lab abnormalities, going to OR and other pertinent info. @ -Upon arrival patient was placed into room 8. A thorough history and physical exam was performed. Patient does have a bronchospastic cough. X-ray and viral swab were obtained. Patient is negative for influenza, Covid and RSV. Chest x-ray demonstrates no acute process. She was given 125 mg Solu-Medrol and a DuoNeb breathing treatment. Patient will be discharged home on steroids and DuoNeb breathing treatments. She is instructed follow-up with primary care doctor in 2-4 days return for any new or worsening symptoms. She is offered codeine cough syrup however states that she is ALLERGIC to opiates. Patient discharged in stable condition Undiagnosed new problem with uncertain prognosis? @ -No Drug Therapy requiring intensive monitoring for toxicity (Heparin, Nitro, Insulin, Cardizem)? @ -No Were any procedures done? @ -No Diagnosis/symptom? @ -acute cough, acute bronchospasm Acute, or Chronic, or Acute on Chronic? @ -acute Uncomplicated (without systemic symptoms) or Complicated (systemic symptoms)? @ -uncomplicated Side effects of treatment? @ -No Exacerbation, Progression, or Severe Exacerbation? @ -No Poses a threat to life or bodily function? How? (Chest pain, [place], [place], pneumonia, PE, COPD, DKA, ARF, appy, cholecystitis, CVA, Diverticulitis, Homicidal, Suicidal, threat to staff... and all critical care pts) @ -No - Lab Data Result diagrams: 08/09/22 08:25 08/09/22 08:25 Lab Results 08/09/22 08/09/22 08/09/22 Range/Units 08:25 08:25 08:25 WBC 7.3 (3.8-10.6) k/uL RBC 4.14 (3.80-5.40) m/uL Hgb 12.6 (11.4-16.0) gm/dL Hct 38.6 (34.0-46.0) % MCV 93.2 (80.0-100.0) fL MCH 30.3 (25.0-35.0) pg MCHC 32.5 (31.0-37.0) g/dL RDW 13.0 (11.5-15.5) % Plt Count 214 (150-450) k/uL MPV 8.1 Neutrophils % 79 % Lymphocytes % 12 % Monocytes % 5 % Eosinophils % 1 % Basophils % 0 % Neutrophils # 5.8 (1.3-7.7) k/uL Lymphocytes # 0.9 L (1.0-4.8) k/uL Monocytes # 0.4 (0-1.0) k/uL Eosinophils # 0.1 (0-0.7) k/uL Basophils # 0.0 (0-0.2) k/uL Sodium 138 (137-145) mmol/L Potassium 4.2 (3.5-5.1) mmol/L Chloride 107 (98-107) mmol/L Carbon Dioxide 23 (22-30) mmol/L Anion Gap 8 mmol/L BUN 12 (7-17) mg/dL Creatinine 0.76 (0.52-1.04) mg/dL Est GFR (CKD-EPI)AfAm >90 (>60 ml/min/1.73 sqM) Est GFR (CKD-EPI)NonAf 80 (>60 ml/min/1.73 sqM) Glucose 120 H (74-99) mg/dL Calcium 8.3 L (8.4-10.2) mg/dL Total Bilirubin 0.3 (0.2-1.3) mg/dL AST 23 (14-36) U/L ALT 20 (4-34) U/L Alkaline Phosphatase 62 (38-126) U/L Total Protein 7.2 (6.3-8.2) g/dL Albumin 4.0 (3.5-5.0) g/dL Influenza Type A (PCR) Not Detected (Not Detectd) Influenza Type B (PCR) Not Detected (Not Detectd) RSV (PCR) Not Detected (Not Detectd) SARS-CoV-2 (PCR) Not Detected (Not Detectd) Disposition Clinical Impression: Cough, Bronchospasm Disposition: HOME SELF-CARE Condition: Stable Instructions (If sedation given, give patient instructions): Upper Respiratory Infection (ED) Additional Instructions: Use the nebulizer or albuterol inhaler every 4 hours. Start taking the steroids tomorrow but stop the celebrex. May use honey or Benadryl for cough. Follow up with your primary care doctor and return for any new or worsening symptoms Prescriptions: predniSONE [Deltasone] 20 mg PO BID #10 tab Is patient prescribed a controlled substance at d/c from ED?: No Referrals: Ken Ly MD [Primary Care Provider] - 1-2 days Time of Disposition: 09:50
[2022-08-09 10:15] VITALS: BP 111/54; PULSE 82; RESP 18; TEMP 98.5
== END 2022-08-09 10:26 | disposition home or self-care (01) ==
LOC: EC 07:29
DX: J98.01 Acute bronchospasm (principal); E11.9 Type 2 diabetes mellitus without complications; K21.9 Gastro-esophageal reflux disease without esophagitis; E07.9 Disorder of thyroid, unspecified; M06.9 Rheumatoid arthritis, unspecified; Z20.822 Contact with and (suspected) exposure to COVID-19; Z79.84 Long term (current) use of oral hypoglycemic drugs; Z79.890 Hormone replacement therapy; Z79.899 Other long term (current) drug therapy; Z88.5 Allergy status to narcotic agent; Z88.8 Allergy status to other drugs, medicaments and biological substances; Z91.09 Other allergy status, other than to drugs and biological substances; Z86.16 Personal history of COVID-19
CPT/HCPCS: 36415; 94640; 93005; 80053; 85025; 87636; 71046; 99285; 96374; 96361; J2930

== ENCOUNTER 2022-08-12 00:16 | Observation (INO) | payer MEDICARE ==
[2022-08-12] MEDS ORDERED: IPRATROPIUM-ALBUTEROL 3 ML NEB INHALATION STA (00:59)
[2022-08-12 01:18] LABS: Basophils % (A) 0 %; Eosinophils % (A) 0 %; HCT 38.2 % (34.0-46.0); HGB 12.6 gm/dL (11.4-16.0); Lymphocytes # (A) 0.9 k/uL (1.0-4.8); Lymphocytes % (A) 13 %; MCH 30.5 pg (25.0-35.0); MCHC 32.9 g/dL (31.0-37.0); MCV 92.6 fL (80.0-100.0); Mean Platelet Volume 8.2; Monocytes # (A) 0.3 k/uL (0-1.0); Monocytes % (A) 4 %; Neutrophils # (A) 5.6 k/uL (1.3-7.7); Neutrophils % (A) 81 %; Platelet Count 223 k/uL (150-450); RBC 4.13 m/uL (3.80-5.40); RDW 13.1 % (11.5-15.5); WBC 6.9 k/uL (3.8-10.6)
[2022-08-12 01:26] LABS: INR 0.9 (<1.2); Partial Thromboplastin Time 22.5 sec (22.0-30.0); Prothrombin Time 9.6 sec (9.0-12.0)
[2022-08-12 01:39] LABS: ALT 26 U/L (4-34); AST 35 U/L (14-36); African American GFR (CKD) >90 (>60 ml/min/1.73 sqM); Albumin 4.2 g/dL (3.5-5.0); Alkaline Phosphatase 64 U/L (38-126); Anion Gap 7 mmol/L; Blood Urea Nitrogen 15 mg/dL (7-17); Calcium 9.1 mg/dL (8.4-10.2); Carbon Dioxide 18 mmol/L (22-30); Chloride 105 mmol/L (98-107); Glucose 165 mg/dL (74-99); Magnesium 1.9 mg/dL (1.6-2.3); Non-African American GFR(CKD) >90 (>60 ml/min/1.73 sqM); Potassium 3.8 mmol/L (3.5-5.1); Sodium 130 mmol/L (137-145); Total Bilirubin 0.4 mg/dL (0.2-1.3); Total Protein 7.4 g/dL (6.3-8.2)
--- NOTE | 2022-08-12 03:11 | XR ---
EXAM: XR Chest, 2 Views CLINICAL HISTORY: Difficulty breathing TECHNIQUE: Frontal and lateral views of the chest. COMPARISON: 08/09/2022. FINDINGS: Lungs: No consolidation. No atelectasis. No CHF. Pleural space: No pleural effusion. No pneumothorax. Heart: No cardiomegaly. Mediastinum: Unremarkable. Bones/joints: Unremarkable. IMPRESSION: No acute abnormality.
[2022-08-12] MEDS ORDERED: NALOXONE 0.4 MG/ML 1 ML VIAL IVP PRN (03:28)
--- NOTE | 2022-08-12 03:29 | ED ---
SOB HPI - General Chief Complaint: Shortness of Breath Stated Complaint: Asthma Attack,ABEL Time Seen by Provider: 08/12/22 00:41 Source: patient, family Mode of arrival: wheelchair Limitations: no limitations - History of Present Illness Initial Comments: 8-year-old female with history of asthma presenting with chief complaint of shortness of breath. Patient was seen here recently on 08/09, she was started on prednisone and albuterol nebulizer at home. Patient has been taking her nebulizer every 4 hours and has taken her 2 doses of prednisone today. States that she was profusely coughing and unable to catch her breath. Her prior to the ER. She reports feeling better with oxygen applied. No chest pain. No nausea, vomiting, abdominal pain. No dizziness or lightheadedness. No palpitations or weakness. - Related Data Home Medications Medication Instructions Recorded Confirmed Celecoxib [CeleBREX] 200 mg PO HS 12/25/13 03/19/19 Levothyroxine Sodium [Synthroid] 100 mcg PO QA 12/25/13 03/19/19 Multivitamins, Thera [Multivitamin 1 tab PO DAILY 02/04/15 03/19/19 (formulary)] Fish Oil/Dha/Epa [Fish Oil 1,200 1 cap PO DAILY 10/25/16 03/19/19 mg Fish Oil] Potassium 99 mg PO DAILY 10/25/16 03/19/19 Magnesium Oxide [Mag-Ox] 250 mg PO HS 12/01/16 03/19/19 Montelukast [Singulair] 10 mg PO HS 08/15/18 03/19/19 Omeprazole 20 mg PO DAILY 08/15/18 03/19/19 Pravastatin Sodium [Pravachol] 20 mg PO HS 08/15/18 03/19/19 Ubidecarenone [Co Q-10] 1 tab PO DAILY 08/15/18 03/19/19 metFORMIN HCL [Glucophage] 250 mg PO DAILY 08/15/18 03/19/19 Losartan [Cozaar] 12.5 mg PO DAILY 03/08/19 03/19/19 Melatonin [Melatonin Dissolving 15 mg PO HS 03/08/19 03/19/19 Tablet] Previous Rx's Medication Instructions Recorded Albuterol Inhaler [Ventolin Hfa 2 puff INHALATION QID #8 gm 08/09/22 Inhaler] Ipratropium Nebulized [Atrovent 0.5 mg INHALATION Q6HR #300 ml 08/09/22 Nebulized 0.2 MG/ML] predniSONE [Deltasone] 20 mg PO BID #10 tab 08/09/22 Allergies Allergy/AdvReac Type Severity Reaction Status Date / Time cigarette smoke Allergy Unknown Dyspnea Verified 08/09/22 07:40 Opioids - Morphine Analogues Allergy Dyspnea Verified 08/09/22 07:40 tramadol Allergy Anaphylaxis, Verified 08/09/22 07:40 chest pain codeine AdvReac Anaphylaxis, Verified 08/09/22 07:40 chest pain cleaning chemicals AdvReac Mild Dyspnea Uncoded 08/09/22 07:40 Review of Systems ROS Statement: Those systems with pertinent positive or pertinent negative responses have been documented in the HPI. ROS Other: All systems not noted in ROS Statement are negative. Past Medical History Past Medical History: Asthma, Diabetes Mellitus, Fibromyalgia, GERD/Reflux, Rheumatoid Arthritis (RA), Thyroid Disorder Additional Past Medical History / Comment(s): covid X2 12/29 History of Any Multi-Drug Resistant Organisms: None Reported Past Surgical History: Bladder Surgery, Cholecystectomy, Heart Catheterization, Hysterectomy, Joint Replacement, Orthopedic Surgery Additional Past Surgical History / Comment(s): partial thyroidectomy. luis shoulder surgery, luis knee arthroscopy, bilateral knee replacement, luis cataracts, rt.trigger finger, Past Anesthesia/Blood Transfusion Reactions: Motion Sickness, Postoperative Nausea & Vomiting (PONV) Additional Past Anesthesia/Blood Transfusion Reaction / Comment(s): DIFFICULTY WAKING UP. PT CAN'T TOLERATE OPIOIDS. WAKES UP AFTER SURGERY WITH CHEST PAIN WHEN EVER GIVEN OPIOIDS. Past Psychological History: No Psychological Hx Reported Smoking Status: Never smoker Past Alcohol Use History: Occasional Past Drug Use History: None Reported - Past Family History Father Family Medical History: Cancer Additional Family Medical History / Comment(s): lung Mother Family Medical History: Cancer Additional Family Medical History / Comment(s): breast Sister(s) Family Medical History: Cancer Additional Family Medical History / Comment(s): SKIN CA General Exam Limitations: no limitations General appearance: alert, in no apparent distress Head exam: Present: atraumatic, normocephalic, normal inspection Eye exam: Present: normal appearance Neck exam: Present: normal inspection, full ROM Respiratory exam: Present: wheezes, accessory muscle use. Absent: respiratory distress Cardiovascular Exam: Present: regular rate, normal rhythm, normal heart sounds. Absent: systolic murmur, diastolic murmur, rubs, gallop, clicks Neurological exam: Present: alert, oriented X3, CN II-XII intact Psychiatric exam: Present: normal affect, normal mood Skin exam: Present: warm, dry, intact, normal color. Absent: rash Course Vital Signs 08/12/22 08/12/22 08/12/22 00:19 01:22 01:29 Temperature 98.5 F Pulse Rate 89 67 60 Respiratory 28 H Rate Blood Pressure 159/65 O2 Sat by Pulse 96 Oximetry Medical Decision Making - Medical Decision Making Was pt. sent in by a medical professional or institution (, PA, TRIM MACHINE ADJUSTER, urgent care, hospital, or residential...) When possible be specific @ -No Did you speak to anyone other than the patient for history (EMS, parent, family, police, friend...)? What history was obtained from this source @ -No Did you review nursing and triage notes (agree or disagree)? Why? @ -I reviewed and agree with nursing and triage notes Were old charts reviewed (outside hosp., previous admission, EMS record, old EKG, old radiological studies, urgent care reports/EKG's, residential records)? Report findings @ -Reviewed documentation patient's previous ER visit including chest x-ray Differential Diagnosis (chest pain, altered mental status, abdominal pain women, abdominal pain men, vaginal bleeding, weakness, fever, dyspnea, syncope, headache, dizziness, GI bleed, back pain, seizure, CVA, palpatations, mental health, musculoskeletal)? @ -MDM Differential Dyspnea: Coronary syndrome, arrhythmia, tamponade, asthma, COPD, pulmonary embolism, pneumonia, pneumothorax, pulmonary effusion, anaphylaxis, diabetic ketoacidosis, flailed chest, pulmonary contusion, diaphragmatic rupture, anemia, neuromuscul ar this is not meant to be an all-inclusive list. EKG interpreted by me (3pts min.). @ -Sinus bradycardia with short CT interval. Ventricular rate 58. CT interval 98. QRS 96. QT 416. QTc 412. X-rays interpreted by me (1pt min.). @ -chest X-ray shows no acute process CT interpreted by me (1pt min.). @ -None done U/S interpreted by me (1pt. min.). @ -None done What testing was considered but not performed or refused? (CT, X-rays, U/S, labs)? Why? @ -None What meds were considered but not given or refused? Why? @ -None Did you discuss the management of the patient with other professionals (professionals i.e. , PA, TRIM MACHINE ADJUSTER, lab, RT, psych nurse, social psychologist, superintendent cemetery, teacher, motor equipment commanding officer, registered nurse hh case manager)? Give summary @ -With Dr. Ly accepted admission Was smoking cessation discussed for >3mins.? @ -No Was critical care preformed (if so, how long)? @ -No Were there social determinants of health that impacted care today? How? (Homelessness, low income, unemployed, alcoholism, drug addiction, transportation, low edu. Level, literacy, decrease access to med. care, prison, rehab)? @ -No Was there de-escalation of care discussed even if they declined (Discuss DNR or withdrawal of care, Hospice)? DNR status @ -No What co-morbidities impacted this encounter? (DM, HTN, Smoking, COPD, CAD, Cancer, CVA, ARF, Chemo, Hep., AIDS, mental health diagnosis, sleep apnea, morbid obesity)? @ -Asthma Was patient admitted / discharged? Hospital course, mention meds given and route, prescriptions, significant lab abnormalities, going to OR and other pertinent info. @ -8-year-old female with asthma presenting with chief complaint of shortness of breath. She is currently on prednisone and albuterol nebulizer every 4 hours at home. Physical examination there are diffuse wheezes heard on all 4 lung fisher. Lab work shows no leukocytosis or anemia. Chest x-ray is clear. After DuoNeb patient continues to have shortness of breath. She and her request admission. I spoke with Dr. Ly accepted admission. Patient is agreeable to this plan. I discussed this case my attending Dr. Robles Undiagnosed new problem with uncertain prognosis? @ -No Drug Therapy requiring intensive monitoring for toxicity (Heparin, Nitro, Insuli n, Cardizem)? @ -No Were any procedures done? @ -No Diagnosis/symptom? @ -Asthma Exacerbation Acute, or Chronic, or Acute on Chronic? @ -Acute Uncomplicated (without systemic symptoms) or Complicated (systemic symptoms)? @ -Complicated Side effects of treatment? @ -No Exacerbation, Progression, or Severe Exacerbation? @ -Exacerbation Poses a threat to life or bodily function? How? (Chest pain, [place], [place], pneumonia, PE, COPD, DKA, ARF, appy, cholecystitis, CVA, Diverticulitis, Homicidal, Suicidal, threat to staff... and all critical care pts) @ -Yes - Lab Data Result diagrams: 08/12/22 01:11 08/12/22 01:11 Lab Results 08/12/22 08/12/22 08/12/22 Range/Units 01:11 01:11 01:11 WBC 6.9 (3.8-10.6) k/uL RBC 4.13 (3.80-5.40) m/uL Hgb 12.6 (11.4-16.0) gm/dL Hct 38.2 (34.0-46.0) % MCV 92.6 (80.0-100.0) fL MCH 30.5 (25.0-35.0) pg MCHC 32.9 (31.0-37.0) g/dL RDW 13.1 (11.5-15.5) % Plt Count 223 (150-450) k/uL MPV 8.2 Neutrophils % 81 % Lymphocytes % 13 % Monocytes % 4 % Eosinophils % 0 % Basophils % 0 % Neutrophils # 5.6 (1.3-7.7) k/uL Lymphocytes # 0.9 L (1.0-4.8) k/uL Monocytes # 0.3 (0-1.0) k/uL Eosinophils # 0.0 (0-0.7) k/uL Basophils # 0.0 (0-0.2) k/uL PT 9.6 (9.0-12.0) sec INR 0.9 (<1.2) APTT 22.5 (22.0-30.0) sec Sodium 130 L (137-145) mmol/L Potassium 3.8 (3.5-5.1) mmol/L Chloride 105 (98-107) mmol/L Carbon Dioxide 18 L (22-30) mmol/L Anion Gap 7 mmol/L BUN 15 (7-17) mg/dL Creatinine 0.60 (0.52-1.04) mg/dL Est GFR (CKD-EPI)AfAm >90 (>60 ml/min/1.73 sqM) Est GFR (CKD-EPI)NonAf >90 (>60 ml/min/1.73 sqM) Glucose 165 H (74-99) mg/dL Plasma Lactic Acid Thony (0.7-2.0) mmol/L Calcium 9.1 (8.4-10.2) mg/dL Magnesium 1.9 (1.6-2.3) mg/dL Total Bilirubin 0.4 (0.2-1.3) mg/dL AST 35 (14-36) U/L ALT 26 (4-34) U/L Alkaline Phosphatase 64 (38-126) U/L Troponin I (0.000-0.034) ng/mL Total Protein 7.4 (6.3-8.2) g/dL Albumin 4.2 (3.5-5.0) g/dL 08/12/22 08/12/22 Range/Units 01:11 01:11 WBC (3.8-10.6) k/uL RBC (3.80-5.40) m/uL Hgb (11.4-16.0) gm/dL Hct (34.0-46.0) % MCV (80.0-100.0) fL MCH (25.0-35.0) pg MCHC (31.0-37.0) g/dL RDW (11.5-15.5) % Plt Count (150-450) k/uL MPV Neutrophils % % Lymphocytes % % Monocytes % % Eosinophils % % Basophils % % Neutrophils # (1.3-7.7) k/uL Lymphocytes # (1.0-4.8) k/uL Monocytes # (0-1.0) k/uL Eosinophils # (0-0.7) k/uL Basophils # (0-0.2) k/uL PT (9.0-12.0) sec INR (<1.2) APTT (22.0-30.0) sec Sodium (137-145) mmol/L Potassium (3.5-5.1) mmol/L Chloride (98-107) mmol/L Carbon Dioxide (22-30) mmol/L Anion Gap mmol/L BUN (7-17) mg/dL Creatinine (0.52-1.04) mg/dL Est GFR (CKD-EPI)AfAm (>60 ml/min/1.73 sqM) Est GFR (CKD-EPI)NonAf (>60 ml/min/1.73 sqM) Glucose (74-99) mg/dL Plasma Lactic Acid Thony 2.8 H* (0.7-2.0) mmol/L Calcium (8.4-10.2) mg/dL Magnesium (1.6-2.3) mg/dL Total Bilirubin (0.2-1.3) mg/dL AST (14-36) U/L ALT (4-34) U/L Alkaline Phosphatase (38-126) U/L Troponin I <0.012 (0.000-0.034) ng/mL Total Protein (6.3-8.2) g/dL Albumin (3.5-5.0) g/dL Disposition Clinical Impression: Asthma exacerbation Disposition: ADMITTED IP TO THIS HOSP Condition: Fair Time of Disposition: 03:29
--- NOTE | 2022-08-12 04:48 | P.CNPUL ---
History of Present Illness Consult date: 08/12/22 Requesting physician: Lee Pritchard Reason for consult: asthma Chief complaint: Shortness of breath, wheezing, cough History of present illness: I am seeing this patient in new consultation today 08/12/2022 in the emergency room for acute asthma exacerbation secondary to acute bronchitis. Patient is a 71-year-old white female with past medical history significant for mild persistent bronchial asthma, GERD, hiatal hernia, diabetes mellitus type 2, hyperlipidemia, and hypothyroidism. Patient's primary care provider is Dr. Ly. Patient has seen Dr. St in the office back in 2019, but has not followed up. Patient's asthma has been relatively well-controlled on a maintenance Symbicort inhaler. Patient came into the emergency room early this morning with reports of persistent cough with occasional yellow sputum production, shortness of breath, and wheezing. Patient states that her symptoms started on Tuesday. She did have an emergency room visit this Tuesday for the same symptoms, and was sent home on a combination of albuterol nebs and and steroid burst taper. She was negative for influenza, RSV, COVID-19 at that time. Patient's symptoms especially her cough had worsened since discharge, and she returned to the emergency room. She denies any fevers, chills, chest pain, hemoptysis. She states that her mother was sick and diagnosed with pneumonia last week. She is currently sitting up in bed, on room air, in no acute distress. Chest x-ray shows no acute infiltrates or evidence of pneumonia. CBC on arrival was unremarkable. No evidence of leukocytosis. BMP shows sodium 1:30, potassium 3.8, chloride 105, serum bicarb 18, BUN 15, creatinine 0.6, glucose 165. Lactic acid level was mildly elevated at 2.8. Troponin less than 0.012. No ECG evidence of ischemia. Patient is currently on a combination of bronchodilators and IV Solu-Medrol. She is afebrile. Vital signs are stable. Review of Systems REVIEW OF SYSTEMS: CONSTITUTIONAL: Denies any recent significant weight loss or weight gain. EYES: Denies change in vision. EARS, NOSE, MOUTH, THROAT: Denies headaches, denies sore throat. CARDIOVASCULAR: Denies chest pain, palpitations or syncopal episodes. RESPIRATORY: See HPI GASTROINTESTINAL: Denies change in appetite, abdominal pain, nausea, or diarrhea. Admits small amount of vomit with coughing fit. GENITOURINARY: Denies hematuria, denies infections. MUSKULOSKELETAL: Denies pain, denies swelling. INTEGUMENTARY: Denies rash, denies eczema. NEUROLOGICAL: Denies recent memory loss, no recent seizure activity. PSYCHIATRIC: Denies anxiety, denies depression. HEMATOLOGIC/LYMPHATIC: Denies anemia, denies enlarged lymph node Past Medical History Past Medical History: Asthma, Diabetes Mellitus, Fibromyalgia, GERD/Reflux, Rheumatoid Arthritis (RA), Thyroid Disorder Additional Past Medical History / Comment(s): covid X2 12/29 History of Any Multi-Drug Resistant Organisms: None Reported Past Surgical History: Bladder Surgery, Cholecystectomy, Heart Catheterization, Hysterectomy, Joint Replacement, Orthopedic Surgery Additional Past Surgical History / Comment(s): partial thyroidectomy. luis shoulder surgery, luis knee arthroscopy, bilateral knee replacement, luis cataracts, rt.trigger finger, Past Anesthesia/Blood Transfusion Reactions: Motion Sickness, Postoperative Nausea & Vomiting (PONV) Additional Past Anesthesia/Blood Transfusion Reaction / Comment(s): DIFFICULTY WAKING UP. PT CAN'T TOLERATE OPIOIDS. WAKES UP AFTER SURGERY WITH CHEST PAIN WHEN EVER GIVEN OPIOIDS. Past Psychological History: No Psychological Hx Reported Smoking Status: Never smoker Past Alcohol Use History: Occasional Past Drug Use History: None Reported - Past Family History Father Family Medical History: Cancer Additional Family Medical History / Comment(s): lung Mother Family Medical History: Cancer Additional Family Medical History / Comment(s): breast Sister(s) Family Medical History: Cancer Additional Family Medical History / Comment(s): SKIN CA Medications and Allergies Home Medications Medication Instructions Recorded Confirmed Type Celecoxib [CeleBREX] 200 mg PO HS 12/25/13 03/19/19 History Levothyroxine Sodium [Synthroid] 100 mcg PO QAM 12/25/13 03/19/19 History Multivitamins, Thera [Multivitamin 1 tab PO DAILY 02/04/15 03/19/19 History (formulary)] Fish Oil/Dha/Epa [Fish Oil 1,200 1 cap PO DAILY 10/25/16 03/19/19 History mg Fish Oil] Potassium 99 mg PO DAILY 10/25/16 03/19/19 History Magnesium Oxide [Mag-Ox] 250 mg PO HS 12/01/16 03/19/19 History Montelukast [Singulair] 10 mg PO HS 08/15/18 03/19/19 History Omeprazole 20 mg PO DAILY 08/15/18 03/19/19 History Pravastatin Sodium [Pravachol] 20 mg PO HS 08/15/18 03/19/19 History Ubidecarenone [Co Q-10] 1 tab PO DAILY 08/15/18 03/19/19 History metFORMIN HCL [Glucophage] 250 mg PO DAILY 08/15/18 03/19/19 History Losartan [Cozaar] 12.5 mg PO DAILY 03/08/19 03/19/19 History Melatonin [Melatonin Dissolving 15 mg PO HS 03/08/19 03/19/19 History Tablet] Albuterol Inhaler [Ventolin Hfa 2 puff INHALATION QID #8 gm 08/09/22 Rx Inhaler] Ipratropium Nebulized [Atrovent 0.5 mg INHALATION Q6HR #300 ml 08/09/22 Rx Nebulized 0.2 MG/ML] predniSONE [Deltasone] 20 mg PO BID #10 tab 08/09/22 Rx Allergies Allergy/AdvReac Type Severity Reaction Status Date / Time cigarette smoke Allergy Unknown Dyspnea Verified 08/09/22 07:40 Opioids - Morphine Analogues Allergy Dyspnea Verified 08/09/22 07:40 tramadol Allergy Anaphylaxis, Verified 08/09/22 07:40 chest pain codeine AdvReac Anaphylaxis, Verified 08/09/22 07:40 chest pain cleaning chemicals AdvReac Mild Dyspnea Uncoded 08/09/22 07:40 Physical Exam Vitals: Vital Signs Temp Pulse Resp BP Pulse Ox 08/12/22 01:29 60 08/12/22 01:22 67 08/12/22 00:19 98.5 F 89 28 H 159/65 96 Intake and Output 08/11/22 08/11/22 08/12/22 14:59 22:59 06:59 Other: Weight 73.482 kg GENERAL EXAM: Alert, 71-year-old white female appearing stated age, comfortable in no apparent distress. HEAD: Normocephalic and atraumatic EYES: Normal reaction of pupils, equal size. NOSE: Clear with pink turbinates. THROAT: No erythema or exudates. NECK: No masses, no JVD. CHEST: No chest wall deformity. LUNGS: Equal air entry with diminished lung sounds and minimal expiratory wheezes throughout. On room air. No conversational dyspnea or accessory muscle use.. CVS: S1 and S2 normal with no audible murmur, regular rhythm. No extra heart sounds ABDOMEN: No hepatosplenomegaly, active bowel sounds, no guarding or rigidity. SPINE: No scoliosis or deformity SKIN: No rashes CENTRAL NERVOUS SYSTEM: No focal deficits, tone is normal in all 4 extremities. EXTREMITIES: There is no peripheral edema, clubbing, or cyanosis. Peripheral pulses are intact. Results - Laboratory Findings CBC and BMP: 08/12/22 01:11 08/12/22 01:11 PT/INR, D-dimer PT 9.6 sec (9.0-12.0) 08/12/22 01:11 INR 0.9 (<1.2) 08/12/22 01:11 Abnormal lab findings: Abnormal Labs 08/12/22 08/12/22 08/12/22 01:11 01:11 01:11 Lymphocytes # 0.9 L Sodium 130 L Carbon Dioxide 18 L Glucose 165 H Plasma Lactic Acid Thony 2.8 H* - Diagnostic Findings Chest x-ray: image reviewed Assessment and Plan Assessment: Acute exacerbation of mild persistent bronchial asthma secondary to acute bronchitis. Chest x-ray shows no acute cardiopulmonary processes. No focal consolidation or evidence of pneumonia. On a recent ER visit for the same symptoms she was negative for RSV, influenza, COVID-19 on 08/09/2022. GERD without esophagitis Hiatal hernia Diabetes mellitus type 2, [id number] Hyperlipidemia Hypothyroidism Never smoker Plan: Patient's medications, labs, chest x-ray were reviewed On room air Start patient on combination of DuoNeb's, Symbicort, IV Solu-Medrol Tessalon Perles for persistent cough We will continue Anticipate hospital discharge in the next 24-48 hours I have personally seen and examined the patient, performed the documentation and the assessment and plan as written. Number of minutes spent on the visit:20 Time with Patient: Greater than 30
[2022-08-12] MEDS: methylPREDNISolone SOD SUCCI 125 MG/2 ML VIAL IV SCH ×3 (05:23→18:32)
[2022-08-12] MEDS: BENZONATATE 100 MG CAP PO SCH ×4 (05:24→20:45)
[2022-08-12] MEDS: IPRATROPIUM-ALBUTEROL 3 ML NEB INHALATION SCH ×4 (08:58→19:53)
[2022-08-12] MEDS: SYMBICORT 160-4.5 MCG INHALER INHALATION SCH ×2 (08:58→19:53)
[2022-08-12] MEDS: LOSARTAN 25 MG TAB PO SCH (13:50)
[2022-08-12 17:42] LABS: Glucose,Whole Blood 168 mg/dL (70-110)
[2022-08-12] MEDS: MELOXICAM 7.5 MG TAB PO SCH (20:46)
[2022-08-12] MEDS: MONTELUKAST 10 MG TAB PO SCH (20:46)
[2022-08-12] MEDS: PRAVASTATIN SODIUM 20 MG TAB PO SCH (20:46)
[2022-08-12] MEDS: FAMOTIDINE 20 MG TAB PO SCH (20:46)
[2022-08-12 20:51] LABS: Glucose,Whole Blood 220 mg/dL (70-110)
[2022-08-13] MEDS: methylPREDNISolone SOD SUCCI 125 MG/2 ML VIAL IV SCH ×5 (00:02→23:57)
[2022-08-13] MEDS: IPRATROPIUM-ALBUTEROL 3 ML NEB INHALATION PRN (01:57)
[2022-08-13] MEDS: PANTOPRAZOLE 40 MG TABLET PO SCH (06:08)
[2022-08-13] MEDS: LEVOTHYROXINE 100 MCG TAB PO SCH (06:08)
[2022-08-13 06:15] LABS: Glucose,Whole Blood 173 mg/dL (70-110)
[2022-08-13] MEDS: IPRATROPIUM-ALBUTEROL 3 ML NEB INHALATION SCH ×4 (06:43→21:10)
[2022-08-13] MEDS: SYMBICORT 160-4.5 MCG INHALER INHALATION SCH ×2 (06:43→21:10)
[2022-08-13] MEDS: BENZONATATE 100 MG CAP PO SCH ×3 (09:33→20:59)
[2022-08-13] MEDS: LOSARTAN 25 MG TAB PO SCH (09:33)
[2022-08-13] MEDS: DAPAGLIFLOZIN PROPANEDIOL 5 MG TABLET PO SCH (09:33)
[2022-08-13] MEDS: ENOXAPARIN 40 MG/0.4 ML SYRINGE SQ SCH (09:34)
[2022-08-13 12:29] LABS: Glucose,Whole Blood 163 mg/dL (70-110)
--- NOTE | 2022-08-13 13:18 | P.PN ---
Subjective Progress Note Date: 08/13/22 I am seeing this patient in new consultation today 08/12/2022 in the emergency room for acute asthma exacerbation secondary to acute bronchitis. Patient is a 71-year-old white female with past medical history significant for mild persistent bronchial asthma, GERD, hiatal hernia, diabetes mellitus type 2, hyperlipidemia, and hypothyroidism. Patient's primary care provider is Dr. Ly. Patient has seen Dr. St in the office back in 2019, but has not followed up. Patient's asthma has been relatively well-controlled on a maintenance Symbicort inhaler. Patient came into the emergency room early this morning with reports of persistent cough with occasional yellow sputum production, shortness of breath, and wheezing. Patient states that her symptoms started on Tuesday. She did have an emergency room visit this Tuesday for the same symptoms, and was sent home on a combination of albuterol nebs and and steroid burst taper. She was negative for influenza, RSV, COVID-19 at that time. Patient's symptoms especially her cough had worsened since discharge, and she returned to the emergency room. She denies any fevers, chills, chest pain, hemoptysis. She states that her mother was sick and diagnosed with pneumonia last week. She is currently sitting up in bed, on room air, in no acute dis tress. Chest x-ray shows no acute infiltrates or evidence of pneumonia. CBC on arrival was unremarkable. No evidence of leukocytosis. BMP shows sodium 1:30, potassium 3.8, chloride 105, serum bicarb 18, BUN 15, creatinine 0.6, glucose 165. Lactic acid level was mildly elevated at 2.8. Troponin less than 0.012. No ECG evidence of ischemia. Patient is currently on a combination of bronchodilators and IV Solu-Medrol. She is afebrile. Vital signs are stable. The patient is seen today 08/13/2022 in follow-up on the regular medical floor. She is currently sitting up in bed. Awake and alert in no acute distress. Maintaining good O2 saturation in the mid 90s on room air. Feeling a bit better today compared to yesterday. Not quite back to her baseline. Still with a dry nonproductive cough. She is maintaining O2 saturations in the 90s on room air. Being treated mainly for bronchitis. Blood glucose 163. She is continued on DuoNeb inhalations, Symbicort, Singulair Solu-Medrol. Tessalon Perles for her cough. Lovenox for DVT prophylaxis. Objective - Vital Signs Vital signs: Vital Signs Temp 98.2 F 08/13/22 07:00 Pulse 80 08/13/22 12:19 Resp 18 08/13/22 07:00 BP 108/49 08/13/22 07:00 Pulse Ox 96 08/13/22 07:00 FiO2 Intake & Output 08/12/22 08/13/22 08/13/22 18:59 06:59 18:59 Intake Total 120 Output Total 2 Balance 118 Weight 73.482 kg Intake: Oral 120 Output: Urine 2 Other: Voiding Method Toilet # Voids 2 1 - Exam GENERAL EXAM: Alert, very pleasant 71-year-old female, on room air, comfortable in no apparent distress. HEAD: Normocephalic. EYES: Normal reaction of pupils, equal size. NOSE: Clear with pink turbinates. THROAT: No erythema or exudates. NECK: No masses, no JVD. CHEST: No chest wall deformity. LUNGS: Equal air entry with faint end expiratory wheeze. CVS: S1 and S2 normal with no audible murmur, regular rhythm. ABDOMEN: No hepatosplenomegaly, normal bowel sounds, no guarding or rigidity. SPINE: No scoliosis or deformity SKIN: No rashes CENTRAL NERVOUS SYSTEM: No focal deficits, tone is normal in all 4 extremities. EXTREMITIES: There is no peripheral edema. No clubbing, no cyanosis. Peripheral pulses are intact. - Labs CBC & Chem 7: 08/12/22 01:11 08/12/22 01:11 Labs: Abnormal Lab Results - Last 24 Hours (Table) 08/12/22 08/12/22 08/13/22 Range/Units 17:38 20:49 06:13 POC Glucose (mg/dL) 168 H 220 H 173 H (70-110) mg/dL 08/13/22 Range/Units 12:27 POC Glucose (mg/dL) 163 H (70-110) mg/dL Assessment and Plan Assessment: Acute exacerbation of mild persistent bronchial asthma secondary to acute bronc hitis. Chest x-ray shows no acute cardiopulmonary processes. No focal consolidation or evidence of pneumonia. On a recent ER visit for the same symptoms she was negative for RSV, influenza, COVID-19 on 08/09/2022. GERD without esophagitis Hiatal hernia Diabetes mellitus type 2, [id number] Hyperlipidemia Hypothyroidism Never smoker Plan: The patient was seen and evaluated Medications reviewed Improved but not quite back to her baseline Continue the current treatment plan Probable discharge in the a.m. I have personally seen and examined the patient, performed the documentation and the assessment and plan as written. Number of minutes spent on the visit: 10.
--- NOTE | 2022-08-13 16:37 | P.HPIM ---
History of Present Illness H&P Date: 08/12/22 Chief Complaint: increased shortness of breath and coughing HISTORY OF PRESENT ILLNESS: this is a 71-year-old female with a previous medical history significant for hypertension and hypertensive cardio vascular disease, hyperlipidemia, hypothyroidism, history of mild persistent asthma, diabetes mellitus type 2, also arthritis, GERD, vitamin D deficiency, patient presented to the emergency department at [facility] because of increased coughing and increased shortness breath, apparently the patient was in the ER on 08/09/2022 and she was diagnosed as having acute asthma exacerbation and she was placed on steroid burst and taper and she was supposed to follow-up with me as an outpatient, however the patient became quite short of breath and quite wheezy she ended up coming back to the emergency department with increased respiratory distress with increased shortness breath and increased coughing her oxygenation was around 89% room air, and because of that she was admitted to the hospital she was started on Solu-Medrol 60 mg IV push every 6 hours along with DuoNeb 3 mL nebulization 4 times every day, and she was started on oxygen support as ne randyed, she was seen in consultation by pulmonary medicine who recommended for the patient to be admitted to the hospital and to reevaluate in the next 24 hours, patient did have a chest x-ray that did not show any evidence of acute pneumonia, therefore the patient was admitted to the hospital for evaluation and treatment of acute asthma exacerbation REVIEW OF SYSTEMS: Constitutional: No documented fever, no chills, no night sweats. No weight change. No weakness, fatigue or lethargy. No daytime sleepiness. HEENT: No headache. No blurred vision or double vision, no loss of vision. No loss of Hearing, no ringing in the ears, no dizziness. No nasal drainage or congestion. No epistaxis. No sore throat. Lungs: positive for shortness of breath, positive for cough, no sputum production. positive for wheezing. Reports dyspnea with activity. Cardiovascular: No chest pain, no lower extremity edema. No palpitations. No paroxysmal nocturnal dyspnea. No orthopnea. No lightheadedness or dizziness. No syncopal episodes. Abdominal: Reports no abdominal pain. No nausea, vomiting. No diarrhea. No constipation. No bloody or tarry stools reports loss of appetite. Genitourinary: No dysuria, increased frequency, urgency. No urinary retention. Musculoskeletal: No myalgias. No muscle weakness, no gait dysfunction, no frequent falls. No back pain. No neck pain. Integumentary: No wounds, no lesions. No rash or pruritus. No unusual bruising. No change in hair or nails. Neurologic: No aphasia. No facial droop. No change in mentation. No head injury. No headache. No paralysis. No paresthesia. Psychiatric: No depression. No anxiety. No mood swings. Endocrine: No abnormal blood sugars. No weight change. PAST MEDICAL HISTORY: hypertension and hypertensive cardio vascular disease per Hyperlipidemia. Hypothyroidism. Mild persistent asthma. Diabetes mellitus type 2. Osteoarthritis. GERD. Vitamin D deficiency. PAST SURGICAL HISTORY: cholecystectomy. Partial hysterotomy. Left breast lumpectomy. Partial thyroidectomy. Bilateral shoulder arthroscopic surgery. Colonoscopy 2019 normal SOCIAL HISTORY: patient is a lifelong nonsmoker she denies any alcohol ingestion, no drainage or abuse. She drinks about 1-2 cups of coffee and a daily basis. FAMILY HISTORY: father at age of 73 from lung cancer with brain metastases mother is 94 with a history of CVA left-sided hemiparesis, hypertension and hyperlipidemia, patient has 3 sisters one with CAD post-PCI and the other 2 have eczema patient has 2 sons no major medical problems. PHYSICAL EXAMINATION: General: 8-year-old female laying down in bed in no apparent distress. HEENT: Head is atraumatic, normocephalic, pupils were equal round reactive to light and recommendation, extraocular muscle movement were intact, sclera nonicteric, conjunctivae were pale, mucous membranes of the mouth are somewhat dry. Neck: Supple, no JVP, normal carotid upstroke bilaterally, no lymphadenopathy. Chest: Decreased breath sounds at the bases, few rhonchi, positive for expiratory wheezes, no chest wall tenderness, no intercostal retractions. Heart: First heart sound is normal, second heart sound is normal there is CAROLE 2/6 located at the left sternal border Abdomen: Soft, nontender, nondistended, positive bowel sounds. Extremities: There is no edema no calf tenderness DP +2 bilaterally. Neurologic examination: Patient is awake alert and oriented X 3, cranial nerves II-12 appear grossly intact, muscle power were 5 out of 5 in upper extremities and 5 out of 5 in bilateral lower extremities, deep tendon reflexes normal bilaterally. ASSESSMENT AND PLAN: 1.acute hypoxemic respiratory failure due to acute asthma exacerbation. Continue Solu-Medrol 60 mg IV push every 6 hours, DuoNeb 3 mL nebulization 4 times every day, oxygen 2 L cannula,continue Symbicort 160/4.5 g 2 puffs inhalation twice every day, continue montelukast 10 mg orally at bedtime, monitor the patient's symptoms is very closely, Pulmonary consultation appreciated. 2. hypertension and hypertensive cardio vascular disease. Continue patient on losartan 12.5 mg once every day, monitor the patient blood pressure very closel y. 3. Hyperlipidemia. Continue pravastatin 20 mg at bedtime. 4. Diabetes mellitus type 2. Continue Farxiga 5 mg orally once every day. 5. Hypothyroidism. Continue levothyroxine 100 mitral gram orally once every day. 6. Vitamin D deficiency. Continue vitamin D supplements. 7. DVT. Reflexes. Continue patient on Lovenox 40 mg subcutaneously every 24 hours. 8. GERD with GI prophylaxis. Continue famotidine 40 mg at bedtime along with pantoprazole 40 mg orally once every day per 9. Admit to inpatient. Estimate a length of stay 2 midnights. 10. Full code. Past Medical History Past Medical History: Asthma, Diabetes Mellitus, Fibromyalgia, GERD/Reflux, Rheumatoid Arthritis (RA), Thyroid Disorder Additional Past Medical History / Comment(s): covid X2 12/29 History of Any Multi-Drug Resistant Organisms: None Reported Past Surgical History: Bladder Surgery, Cholecystectomy, Heart Catheterization, Hysterectomy, Joint Replacement, Orthopedic Surgery Additional Past Surgical History / Comment(s): partial thyroidectomy. luis shoulder surgery, luis knee arthroscopy, bilateral knee replacement, luis cataracts, rt.trigger finger, Past Anesthesia/Blood Transfusion Reactions: Motion Sickness, Postoperative Nausea & Vomiting (PONV) Additional Past Anesthesia/Blood Transfusion Reaction / Comment(s): DIFFICULTY WAKING UP. PT CAN'T TOLERATE OPIOIDS. WAKES UP AFTER SURGERY WITH CHEST PAIN WHE N EVER GIVEN OPIOIDS. Past Psychological History: No Psychological Hx Reported Smoking Status: Never smoker Past Alcohol Use History: Occasional Past Drug Use History: None Reported - Past Family History Father Family Medical History: Cancer Additional Family Medical History / Comment(s): lung Mother Family Medical History: Cancer Additional Family Medical History / Comment(s): breast Sister(s) Family Medical History: Cancer Additional Family Medical History / Comment(s): SKIN CA Medications and Allergies Home Medications Medication Instructions Recorded Confirmed Type Celecoxib [CeleBREX] 200 mg PO HS 12/25/13 08/12/22 History Levothyroxine Sodium [Synthroid] 100 mcg PO DAILY 12/25/13 08/12/22 History Montelukast [Singulair] 10 mg PO HS 08/15/18 08/12/22 History Omeprazole 20 mg PO BID 08/15/18 08/12/22 History Pravastatin Sodium [Pravachol] 20 mg PO HS 08/15/18 08/12/22 History Losartan [Cozaar] 12.5 mg PO DAILY 03/08/19 08/12/22 History predniSONE [Deltasone] 20 mg PO BID #10 tab 08/09/22 08/12/22 Rx Albuterol Inhaler [Ventolin Hfa 2 puff INHALATION RT-QID PRN 08/12/22 08/12/22 History Inhaler] Dapagliflozin Propanediol [Farxiga] 5 mg PO DAILY 08/12/22 08/12/22 History Famotidine [Pepcid] 40 mg PO HS 08/12/22 08/12/22 History Ipratropium Nebulized [Atrovent 0.5 mg INHALATION RT-Q6H PRN 08/12/22 08/12/22 History Nebulized 0.2 MG/ML] Allergies Allergy/AdvReac Type Severity Reaction Status Date / Time cigarette smoke Allergy Unknown Dyspnea Verified 08/12/22 06:59 Opioids - Morphine Analogues Allergy Dyspnea Verified 08/12/22 06:59 tramadol Allergy Anaphylaxis, Verified 08/12/22 06:59 chest pain codeine AdvReac Anaphylaxis, Verified 08/12/22 06:59 chest pain cleaning chemicals AdvReac Mild Dyspnea Uncoded 08/12/22 06:59 Physical Exam Vitals: Vital Signs Temp Pulse Resp BP Pulse Ox 08/12/22 12:17 67 18 08/12/22 12:08 61 08/12/22 09:10 58 L 18 08/12/22 08:58 52 L 18 08/12/22 08:08 97.6 F 58 L 22 125/62 95 08/12/22 05:00 60 18 125/62 93 L 08/12/22 01:29 60 08/12/22 01:22 67 08/12/22 00:19 98.5 F 89 28 H 159/65 96 Intake and Output 08/11/22 08/12/22 08/12/22 22:59 06:59 14:59 Other: Weight 73.482 kg Results CBC & Chem 7: 08/12/22 01:11 08/12/22 01:11 Labs: Abnormal Lab Results - Last 24 Hours (Table) 08/12/22 08/12/22 08/12/22 Range/Units 01:11 01:11 01:11 Lymphocytes # 0.9 L (1.0-4.8) k/uL Sodium 130 L (137-145) mmol/L Carbon Dioxide 18 L (22-30) mmol/L Glucose 165 H (74-99) mg/dL Plasma Lactic Acid Thony 2.8 H* (0.7-2.0) mmol/L 08/12/22 Range/Units 05:21 Lymphocytes # (1.0-4.8) k/uL Sodium (137-145) mmol/L Carbon Dioxide (22-30) mmol/L Glucose (74-99) mg/dL Plasma Lactic Acid Thony 2.3 H* (0.7-2.0) mmol/L
[2022-08-13 17:45] LABS: Glucose,Whole Blood 190 mg/dL (70-110)
[2022-08-13] MEDS: BENZOCAINE/MENTHOL LOZENG 1 EACH LOZENGE MUCOUS MEM PRN ×2 (17:58→23:59)
[2022-08-13 20:32] LABS: Glucose,Whole Blood 238 mg/dL (70-110)
[2022-08-13] MEDS: MELOXICAM 7.5 MG TAB PO SCH (20:59)
[2022-08-13] MEDS: PRAVASTATIN SODIUM 20 MG TAB PO SCH (21:00)
[2022-08-13] MEDS: FAMOTIDINE 20 MG TAB PO SCH (21:00)
[2022-08-13] MEDS: MONTELUKAST 10 MG TAB PO SCH (21:00)
[2022-08-14] MEDS: IPRATROPIUM-ALBUTEROL 3 ML NEB INHALATION PRN ×2 (00:45→04:41)
[2022-08-14] MEDS: BENZOCAINE/MENTHOL LOZENG 1 EACH LOZENGE MUCOUS MEM PRN ×3 (05:09→20:39)
[2022-08-14 06:12] LABS: Glucose,Whole Blood 198 mg/dL (70-110)
[2022-08-14] MEDS: LEVOTHYROXINE 100 MCG TAB PO SCH (06:35)
[2022-08-14] MEDS: PANTOPRAZOLE 40 MG TABLET PO SCH (06:35)
[2022-08-14] MEDS: methylPREDNISolone SOD SUCCI 125 MG/2 ML VIAL IV SCH ×4 (06:35→23:45)
--- NOTE | 2022-08-14 06:39 | P.PN ---
Subjective Progress Note Date: 08/13/22 HISTORY OF PRESENT ILLNESS: this is a 71-year-old female with a previous medical history signif icant for hypertension and hypertensive cardio vascular disease, hyperlipidemia, hypothyroidism, history of mild persistent asthma, diabetes mellitus type 2, also arthritis, GERD, vitamin D deficiency, patient presented to the emergency department at [facility] because of increased coughing and increased shortness breath, apparently the patient was in the ER on 08/09/2022 and she was diagnosed as having acute asthma exacerbation and she was placed on steroid burst and taper and she was supposed to follow-up with me as an outpatient, however the patient became quite short of breath and quite wheezy she ended up coming back to the emergency department with increased respiratory distress with increased shortness breath and increased coughing her oxygenation was around 89% room air, and because of that she was admitted to the hospital she was started on Solu-Medrol 60 mg IV push every 6 hours along with DuoNeb 3 mL nebulization 4 times every day, and she was started on oxygen support as needed, she was seen in consultation by pulmonary medicine who recommended for the patient to be admitted to the hospital and to reevaluate in the next 24 hours, patient did have a chest x-ray that did not show any evidence of acute pneumonia, therefore the patient was admitted to the hospital for evaluation and treatment of acute asthma exacerbation 08/13: Patient continues to have a significant dry cough with no phlegm production, continues to have laryngitis, she would be maintained on Solu-Medrol 60 mg IV push every 6 hours for another 24 hours, we will try to decrease it to 40 mg IV push every 8 hours, hopefully she will be discharged home in the next 1 or 2 days. REVIEW OF SYSTEMS: Constitutional: No documented fever, no chills, no night sweats. No weight change. No weakness, fatigue or lethargy. No daytime sleepiness. HEENT: No headache. No blurred vision or double vision, no loss of vision. No loss of Hearing, no ringing in the ears, no dizziness. No nasal drainage or congestion. No epistaxis. No sore throat. Lungs: positive for shortness of breath, positive for cough, no sputum production. positive for wheezing. Reports dyspnea with activity. Cardiovascular: No chest pain, no lower extremity edema. No palpitations. No paroxysmal nocturnal dyspnea. No orthopnea. No lightheadedness or dizziness. No syncopal episodes. Abdominal: Reports no abdominal pain. No nausea, vomiting. No diarrhea. No constipation. No bloody or tarry stools reports loss of appetite. Genitourinary: No dysuria, increased frequency, urgency. No urinary retention. Musculoskeletal: No myalgias. No muscle weakness, no gait dysfunction, no frequent falls. No back pain. No neck pain. Integumentary: No wounds, no lesions. No rash or pruritus. No unusual bruising. No change in hair or nails. Neurologic: No aphasia. No facial droop. No change in mentation. No head injury. No headache. No paralysis. No paresthesia. Psychiatric: No depression. No anxiety. No mood swings. Endocrine: No abnormal blood sugars. No weight change. PHYSICAL EXAMINATION: General: 8-year-old female laying down in bed in no apparent distress. HEENT: Head is atraumatic, normocephalic, pupils were equal round reactive to light and recommendation, extraocular muscle movement were intact, sclera nonicteric, conjunctivae were pale, mucous membranes of the mouth are somewhat dry. Neck: Supple, no JVP, normal carotid upstroke bilaterally, no lymphadenopathy. Chest: Decreased breath sounds at the bases, few rhonchi, positive for expiratory wheezes, no chest wall tenderness, no intercostal retractions. Heart: First heart sound is normal, second heart sound is normal there is CAROLE 2/6 located at the left sternal border Abdomen: Soft, nontender, nondistended, positive bowel sounds. Extremities: There is no edema no calf tenderness DP +2 bilaterally. Neurologic examination: Patient is awake alert and oriented X 3, cranial nerves II-12 appear grossly intact, muscle power were 5 out of 5 in upper extremities and 5 out of 5 in bilateral lower extremities, deep tendon reflexes normal bilaterally. ASSESSMENT AND PLAN: 1.acute hypoxemic respiratory failure due to acute asthma exacerbation. Continue Solu-Medrol 60 mg IV push every 6 hours, DuoNeb 3 mL nebulization 4 times every day, oxygen 2 L cannula,continue Symbicort 160/4.5 g 2 puffs inhalation twice every day, continue montelukast 10 mg orally at bedtime, monitor the patient's symptoms is very closely, Pulmonary consultation appreciated. 2. hypertension and hypertensive cardiovascular disease. Continue patient on losartan 12.5 mg once every day, monitor the patient blood pressure very closely. 3. Hyperlipidemia. Continue pravastatin 20 mg at bedtime. 4. Diabetes mellitus type 2. Continue Farxiga 5 mg orally once every day. 5. Hypothyroidism. Continue levothyroxine 100 mitral gram orally once every day. 6. Vitamin D deficiency. Continue vitamin D supplements. 7. DVT. Reflexes. Continue patient on Lovenox 40 mg subcutaneously every 24 hours. 8. GERD with GI Prophylaxis. Continue famotidine 40 mg at bedtime along with pantoprazole 40 mg orally once every day 9. increase activity. 10. Home in 1-2 days. Objective - Vital Signs Vital signs: Vital Signs Temp 98 F 08/13/22 15:00 Pulse 86 08/13/22 15:54 Resp 18 08/13/22 15:00 BP 118/68 08/13/22 15:00 Pulse Ox 98 08/13/22 15:55 FiO2 Intake & Output 08/12/22 08/13/22 08/13/22 18:59 06:59 18:59 Intake Total 240 Output Total 4 Balance 236 Weight 73.482 kg Intake: Oral 240 Output: Urine 4 Other: Voiding Method Toilet # Voids 2 1 - Labs CBC & Chem 7: 08/12/22 01:11 08/12/22 01:11 Labs: Abnormal Lab Results - Last 24 Hours (Table) 08/12/22 08/12/22 08/13/22 Range/Units 17:38 20:49 06:13 POC Glucose (mg/dL) 168 H 220 H 173 H (70-110) mg/dL 08/13/22 Range/Units 12:27 POC Glucose (mg/dL) 163 H (70-110) mg/dL
[2022-08-14] MEDS ORDERED: DEXTROSE 50% SYRINGE 50 ML IVP PRN ×2 (07:16)
[2022-08-14] MEDS: IPRATROPIUM-ALBUTEROL 3 ML NEB INHALATION SCH ×4 (08:30→19:49)
[2022-08-14] MEDS: BUDESONIDE 1 MG/2 ML NEBU INHALATION SCH ×2 (08:36→19:49)
[2022-08-14] MEDS: FORMOTEROL FUMARATE 20 MCG/2 ML NEBU INHALATION SCH ×2 (08:48→19:49)
[2022-08-14] MEDS: INSULIN ASPART (NovoLOG) 100 UNIT/ML VIAL SQ SCH ×4 (09:05→20:44)
[2022-08-14 09:12] LABS: Basophils # (A) 0.01 X 10*3/uL (0.00-0.10); Basophils % (A) 0.1 %; Eosinophils # (A) 0 X 10*3/uL (0.04-0.35); Eosinophils % (A) 0 %; HCT 37.5 % (37.2-46.3); HGB 12.1 d/dL (12.0-15.0); Lymphocytes % (A) 6.4 %; MCH 30.2 pg (27.0-32.0); MCHC 32.3 d/dL (32.0-37.0); MCV 93.5 FL (80.0-97.0); Mean Platelet Volume 10.4 FL (9.5-12.2); Monocytes # (A) 0.36 X 10*3/uL (0.20-1.00); Monocytes % (A) 3.3 %; NRBC Per 100 WBC 0 X 10*3/uL (0.00-0.01); Neutrophils # (A) 9.85 X 10*3/uL (1.80-7.70); Neutrophils % (A) 89.3 %; Platelet Count 264 X 10*3/uL (140-440); RBC 4.01 X 10*6/uL (4.10-5.20); RDW 12.9 % (11.5-14.5); WBC 11.02 X 10*3/uL (4.50-10.00)
[2022-08-14] MEDS: BENZONATATE 100 MG CAP PO SCH ×3 (09:14→20:37)
[2022-08-14] MEDS: LOSARTAN 25 MG TAB PO SCH (09:15)
[2022-08-14] MEDS: DAPAGLIFLOZIN PROPANEDIOL 5 MG TABLET PO SCH (09:15)
[2022-08-14 09:19] LABS: ALT 51 U/L (8-44); AST 56 U/L (13-35); Albumin/Globulin Ratio 1.43 Ratio (1.60-3.17); Alkaline Phosphatase 55 U/L (41-126); BUN/Creat Ratio 28.62 Ratio (12.00-20.00); Blood Urea Nitrogen 22.9 mg/dL (9.0-27.0); Calcium 9.1 mg/dL (8.7-10.3); Carbon Dioxide 22.5 mmol/L (21.6-31.8); Chloride 100 mmol/L (96-109); Globulin 2.8 d/dL (1.6-3.3); Glucose 189 mg/dL (70-110); Sodium 136 mmol/L (135-145); Total Bilirubin 0.3 mg/dL (0.3-1.2); Total Protein 6.8 d/dL (6.2-8.2)
[2022-08-14] MEDS: ENOXAPARIN 40 MG/0.4 ML SYRINGE SQ SCH (10:05)
--- NOTE | 2022-08-14 11:24 | P.PN ---
Subjective Progress Note Date: 08/14/22 I am seeing this patient in new consultation today 08/12/2022 in the emergency room for acute asthma exacerbation secondary to acute bronchitis. Patient is a 71-year-old white female with past medical history significant for mild persistent bronchial asthma, GERD, hiatal hernia, diabetes mellitus type 2, hyperlipidemia, and hypothyroidism. Patient's primary care provider is Dr. Ly. Patient has seen Dr. St in the office back in 2019, but has not followed up. Patient's asthma has been relatively well-controlled on a maintenance Symbicort inhaler. Patient came into the emergency room early this morning with reports of persistent cough with occasional yellow sputum production, shortness of breath, and wheezing. Patient states that her symptoms started on Tuesday. She did have an emergency room visit this Tuesday for the same symptoms, and was sent home on a combination of albuterol nebs and and steroid burst taper. She was negative for influenza, RSV, COVID-19 at that time. Patient's symptoms especially her cough had worsened since discharge, and she returned to the emergency room. She denies any fevers, chills, chest pain, hemoptysis. She states that her mother was sick and diagnosed with pneumonia last week. She is currently sitting up in bed, on room air, in no acute dis tress. Chest x-ray shows no acute infiltrates or evidence of pneumonia. CBC on arrival was unremarkable. No evidence of leukocytosis. BMP shows sodium 1:30, potassium 3.8, chloride 105, serum bicarb 18, BUN 15, creatinine 0.6, glucose 165. Lactic acid level was mildly elevated at 2.8. Troponin less than 0.012. No ECG evidence of ischemia. Patient is currently on a combination of bronchodilators and IV Solu-Medrol. She is afebrile. Vital signs are stable. The patient is seen today 08/13/2022 in follow-up on the regular medical floor. She is currently sitting up in bed. Awake and alert in no acute distress. Maintaining good O2 saturation in the mid 90s on room air. Feeling a bit better today compared to yesterday. Not quite back to her baseline. Still with a dry nonproductive cough. She is maintaining O2 saturations in the 90s on room air. Being treated mainly for bronchitis. Blood glucose 163. She is continued on DuoNeb inhalations, Symbicort, Singulair Solu-Medrol. Tessalon Perles for her cough. Lovenox for DVT prophylaxis. The patient is seen today 08/14/2022 in follow-up on the regular medical floor. She is sitting up in a chair at the bedside. Awake and alert in no acute distress. She states she did have another coughing episode last night. Not quite back to her baseline. Maintaining O2 saturations in the 90s on 2 L/m per nasal cannula. White count 11.0. Hemoglobin 12.1. Sodium 136. Potassium 4.0. Bicarb 23. BUN 23. Creatinine 0.8. Glucose 189. AST 56. ALT 51. She is continued on DuoNeb inhalations, Pulmicort and Perforomist inhalations, IV Solu- Medrol. Receiving Tessalon Perles, Singulair, Cepacol lozenges. Lovenox for DVT prophylaxis. Objective - Vital Signs Vital signs: Vital Signs Temp 97.9 F 08/14/22 07:00 Pulse 79 08/14/22 08:55 Resp 18 08/14/22 07:00 BP 113/58 08/14/22 07:00 Pulse Ox 94 L 08/14/22 08:32 FiO2 Intake & Output 08/13/22 08/14/22 08/14/22 18:59 06:59 18:59 Intake Total 360 Output Total 4 5 Balance 356 -5 Intake: Oral 360 Output: Urine 4 5 Other: # Voids 1 100 - Exam GENERAL EXAM: Alert, 71-year-old female, on 2 L/m per nasal cannula, fairly comfortable in no apparent distress. HEAD: Normocephalic. EYES: Normal reaction of pupils, equal size. NOSE: Clear with pink turbinates. THROAT: No erythema or exudates. NECK: No masses, no JVD. CHEST: No chest wall deformity. LUNGS: Equal air entry with faint end expiratory wheeze. CVS: S1 and S2 normal with no audible murmur, regular rhythm. ABDOMEN: No hepatosplenomegaly, normal bowel sounds, no guarding or rigidity. SPINE: No scoliosis or deformity SKIN: No rashes CENTRAL NERVOUS SYSTEM: No focal deficits, tone is normal in all 4 extremities. EXTREMITIES: There is no peripheral edema. No clubbing, no cyanosis. Peripheral pulses are intact. - Labs CBC & Chem 7: 08/14/22 06:07 08/14/22 06:02 Labs: Abnormal Lab Results - Last 24 Hours (Table) 08/13/22 08/13/22 08/13/22 Range/Units 12:27 17:44 20:30 WBC (4.50-10.00) X 10*3/uL RBC (4.10-5.20) X 10*6/uL Neutrophils # (1.80-7.70) X 10*3/uL Lymphocytes # (0.90-5.00) X 10*3/uL Eosinophils # (0.04-0.35) X 10*3/uL Anion Gap (4.00-12.00) mmol/L BUN/Creatinine Ratio (12.00-20.00) Ratio Glucose (70-110) mg/dL POC Glucose (mg/dL) 163 H 190 H 238 H (70-110) mg/dL AST (13-35) U/L ALT (8-44) U/L Albumin/Globulin Ratio (1.60-3.17) Ratio 08/14/22 08/14/22 08/14/22 Range/Units 06:02 06:07 06:11 WBC 11.02 H (4.50-10.00) X 10*3/uL RBC 4.01 L (4.10-5.20) X 10*6/uL Neutrophils # 9.85 H (1.80-7.70) X 10*3/uL Lymphocytes # 0.70 L (0.90-5.00) X 10*3/uL Eosinophils # 0 L (0.04-0.35) X 10*3/uL Anion Gap 13.50 H (4.00-12.00) mmol/L BUN/Creatinine Ratio 28.62 H (12.00-20.00) Ratio Glucose 189 H (70-110) mg/dL POC Glucose (mg/dL) 198 H (70-110) mg/dL AST 56 H (13-35) U/L ALT 51 H (8-44) U/L Albumin/Globulin Ratio 1.43 L (1.60-3.17) Ratio Assessment and Plan Assessment: Acute exacerbation of mild persistent bronchial asthma secondary to acute bronchitis. Chest x-ray shows no acute cardiopulmonary processes. No focal con solidation or evidence of pneumonia. On a recent ER visit for the same symptoms she was negative for RSV, influenza, COVID-19 on 08/09/2022. GERD without esophagitis Hiatal hernia Diabetes mellitus type 2, [id number] Hyperlipidemia Hypothyroidism Never smoker Plan: The patient was seen and evaluated Medications and labs reviewed Improved but not quite back to her baseline Discontinue Symbicort Add Pulmicort and Perforomist inhalations We will continue to follow I have personally seen and examined the patient, performed the documentation and the assessment and plan as written. Number of minutes spent on the visit: 10.
[2022-08-14 11:55] LABS: Glucose,Whole Blood 222 mg/dL (70-110)
[2022-08-14 17:38] LABS: Glucose,Whole Blood 177 mg/dL (70-110)
--- NOTE | 2022-08-14 19:34 | P.PN ---
Subjective Progress Note Date: 08/14/22 this is a 71-year-old female with a previous medical history significant for hypertension and hypertensive cardio vascular disease, hyperlipidemia, hypothyroidism, history of mild persistent asthma, diabetes mellitus type 2, also arthritis, GERD, vitamin D deficiency, patient presented to the emergency department at [facility] because of increased coughing and increased shortness breath, apparently the patient was in the ER on 08/09/2022 and she was diagnosed as having acute asthma exacerbation and she was placed on steroid burst and taper and she was supposed to follow-up with me as an outpatient, however the patient became quite short of breath and quite wheezy she ended up coming back to the emergency department with increased respiratory distress with increased shortness breath and increased coughing her oxygenation was around 89% room air, and because of that she was admitted to the hospital she was started on Solu-Medrol 60 mg IV push every 6 hours along with DuoNeb 3 mL nebulization 4 times every day, and she was started on oxygen support as needed, she was seen in consultation by pulmonary medicine who recommended for the patient to be admitted to the hospital and to reevaluate in the next 24 hours, patient did have a chest x-ray that did not show any evidence of acute pneumonia, therefore the patient was admitted to the hospital for evaluation and treatment of acute asthma exacerbation 08/13: Patient continues to have a significant dry cough with no phlegm production, continues to have laryngitis, she would be maintained on Solu-Medrol 60 mg IV push every 6 hours for another 24 hours, we will try to decrease it to 40 mg IV push every 8 hours, hopefully she will be discharged home in the next 1 or 2 days. 08/14/2022 Patient is seen and evaluated follow-up this morning reporting continued shortness of breath although feels significantly improved since yesterday. Patient reports she had a difficult night with increased shortness of breath and one episode of feeling as if she was unable to catch her breath. Patient is maintained on DuoNeb treatments along with IV steroids with pulmonary following closely. Patient is afebrile with no reports of chest pain or palpitations. Patient reports very little sleep and requesting her melatonin be renewed. Patient reports cough and quite bronchospastic and dry with no significant sputum noted. Patient is currently on room air and using 2 L nasal cannula as needed for supplemental oxygen. Patient does not wear oxygen outpatient Review of systems: Constitutional: reports of fatigue, no fever, or chills Cardiovascular: No reports of chest pain or palpitations Respiratory: reports of shortness of breath with exertion and continued dry cough GI: No reports of nausea, vomiting, or diarrhea : No reports of dysuria or retention Neurovascular: No reports of weakness or numbness All medications have been reviewed PHYSICAL EXAMINATION: General: 71-year-old female currently sitting up in the chair room air, awake, alert and oriented 3, well-developed, well-nourished patient appears lethargic. HEENT: Head is atraumatic, normocephalic, pupils were equal round reactive to light and recommendation, extraocular muscle movement were intact, sclera nonicteric, conjunctivae were pale, mucous membranes of the mouth are somewhat dry. Neck: Supple, no JVP, normal carotid upstroke bilaterally, no lymphadenopathy. Chest: Decreased breath sounds at the bases, few rhonchi, bilateral expiratory wheezes noted on exam, no chest wall tenderness, no intercostal retractions. Heart: First heart sound is normal, second heart sound is normal there is CAROLE 2/6 located at the left sternal border Abdomen: Soft, nontender, nondistended, positive bowel sounds. Extremities: There is no edema no calf tenderness DP +2 bilaterally. Neurologic examination: Patient is awake alert and oriented X 3, cranial nerves II-12 appear grossly intact, muscle power were 5 out of 5 in upper extremities and 5 out of 5 in bilateral lower extremities, deep tendon reflexes normal bilaterally. ASSESSMENT AND PLAN: 1. acute hypoxemic respiratory failure due to acute asthma exacerbation. Continue Solu-Medrol 60 mg IV push every 6 hours, DuoNeb 3 mL nebulization 4 times every day, oxygen 2 L cannula, continue montelukast 10 mg orally at bedtime, monitor the patient's symptoms is very closely, Pulmonary following and adding Perforomist along with Pulmicort and recommend continue with IV steroids and DuoNeb treatments. Symbicort discontinued. 2. hypertension and hypertensive cardiovascular disease. Continue patient on losartan 12.5 mg once every day, monitor the patient blood pressure very c losely. 3. Hyperlipidemia. Continue pravastatin 20 mg at bedtime. 4. Diabetes mellitus type 2. Continue Farxiga 5 mg orally once every day. Recommend sliding scale as needed with Accu-Cheks before meals and at bedtime 5. Hypothyroidism. Continue levothyroxine 100 mg orally once every day. 6. Vitamin D deficiency. Continue vitamin D supplements. 7. DVT. Reflexes. Continue patient on Lovenox 40 mg subcutaneously every 24 hours. 8. GERD with GI Prophylaxis. Continue famotidine 40 mg at bedtime along with pantoprazole 40 mg orally once every day Plan: Recommend continue current medications and regimen with pulmonary following closely. Patient is maintained on DuoNeb treatments along with IV steroids and Symbicort being discontinued with Perforomist and Pulmicort being added. Encouraged to increase activity as tolerated Patient reporting very little sleep and difficulty with breathing at night requesting her melatonin be resumed will add as needed. We'll follow up with pulmonary as well as patient in the a.m. with possible discharge in the next 24-48 hours Currently covering for Dr. Ly he will resume care on 08/16/2022 The impression and plan of care has been dictated by Tara Taylor, Nurse Practitioner as directed. Dr. Madyson MD I have performed a history and examination and MDM of this patient, discussed the same with the dictator, and agree with the dictator's assessment and plan as written ,documented as a scribe. Based on total visit time, I have performed more than 50% of the visit. Objective - Vital Signs Vital signs: Vital Signs Temp 97.9 F 08/14/22 07:00 Pulse 79 08/14/22 08:55 Resp 18 08/14/22 07:00 BP 113/58 08/14/22 07:00 Pulse Ox 94 L 08/14/22 08:32 FiO2 Intake & Output 08/13/22 08/14/22 08/14/22 18:59 06:59 18:59 Intake Total 360 Output Total 4 5 Balance 356 -5 Intake: Oral 360 Output: Urine 4 5 Other: # Voids 1 100 - Labs CBC & Chem 7: 08/14/22 06:07 08/14/22 06:02 Labs: Abnormal Lab Results - Last 24 Hours (Table) 08/13/22 08/13/22 08/13/22 Range/Units 12:27 17:44 20:30 WBC (4.50-10.00) X 10*3/uL RBC (4.10-5.20) X 10*6/uL Neutrophils # (1.80-7.70) X 10*3/uL Lymphocytes # (0.90-5.00) X 10*3/uL Eosinophils # (0.04-0.35) X 10*3/uL Anion Gap (4.00-12.00) mmol/L BUN/Creatinine Ratio (12.00-20.00) Ratio Glucose (70-110) mg/dL POC Glucose (mg/dL) 163 H 190 H 238 H (70-110) mg/dL AST (13-35) U/L ALT (8-44) U/L Albumin/Globulin Ratio (1.60-3.17) Ratio 08/14/22 08/14/22 08/14/22 Range/Units 06:02 06:07 06:11 WBC 11.02 H (4.50-10.00) X 10*3/uL RBC 4.01 L (4.10-5.20) X 10*6/uL Neutrophils # 9.85 H (1.80-7.70) X 10*3/uL Lymphocytes # 0.70 L (0.90-5.00) X 10*3/uL Eosinophils # 0 L (0.04-0.35) X 10*3/uL Anion Gap 13.50 H (4.00-12.00) mmol/L BUN/Creatinine Ratio 28.62 H (12.00-20.00) Ratio Glucose 189 H (70-110) mg/dL POC Glucose (mg/dL) 198 H (70-110) mg/dL AST 56 H (13-35) U/L ALT 51 H (8-44) U/L Albumin/Globulin Ratio 1.43 L (1.60-3.17) Ratio
[2022-08-14] MEDS: SYMBICORT 160-4.5 MCG INHALER INHALATION SCH (19:58)
[2022-08-14 20:22] LABS: Glucose,Whole Blood 215 mg/dL (70-110)
[2022-08-14] MEDS: MONTELUKAST 10 MG TAB PO SCH (20:36)
[2022-08-14] MEDS: PRAVASTATIN SODIUM 20 MG TAB PO SCH (20:36)
[2022-08-14] MEDS: MELOXICAM 7.5 MG TAB PO SCH (20:36)
[2022-08-14] MEDS: FAMOTIDINE 20 MG TAB PO SCH (20:37)
[2022-08-14] MEDS: MELATONIN 5 MG TABLET PO PRN (20:44)
[2022-08-15] MEDS: IPRATROPIUM-ALBUTEROL 3 ML NEB INHALATION PRN (03:22)
[2022-08-15] MEDS: methylPREDNISolone SOD SUCCI 125 MG/2 ML VIAL IV SCH ×4 (06:15→23:52)
[2022-08-15] MEDS: LEVOTHYROXINE 100 MCG TAB PO SCH (06:16)
[2022-08-15] MEDS: PANTOPRAZOLE 40 MG TABLET PO SCH (06:16)
[2022-08-15 06:32] LABS: Glucose,Whole Blood 183 mg/dL (70-110)
[2022-08-15] MEDS: INSULIN ASPART (NovoLOG) 100 UNIT/ML VIAL SQ SCH ×4 (06:34→20:49)
[2022-08-15] MEDS: IPRATROPIUM-ALBUTEROL 3 ML NEB INHALATION SCH ×4 (07:52→21:29)
[2022-08-15] MEDS: BUDESONIDE 1 MG/2 ML NEBU INHALATION SCH ×2 (07:52→21:29)
[2022-08-15] MEDS: FORMOTEROL FUMARATE 20 MCG/2 ML NEBU INHALATION SCH ×2 (08:07→21:29)
[2022-08-15] MEDS: BENZONATATE 100 MG CAP PO SCH ×3 (08:49→20:49)
[2022-08-15] MEDS: DAPAGLIFLOZIN PROPANEDIOL 5 MG TABLET PO SCH (08:49)
[2022-08-15] MEDS: LOSARTAN 25 MG TAB PO SCH (08:49)
[2022-08-15] MEDS: ENOXAPARIN 40 MG/0.4 ML SYRINGE SQ SCH (08:52)
--- NOTE | 2022-08-15 10:48 | P.PN ---
Subjective Progress Note Date: 08/15/22 I am seeing this patient in new consultation today 08/12/2022 in the emergency room for acute asthma exacerbation secondary to acute bronchitis. Patient is a 71-year-old white female with past medical history significant for mild persistent bronchial asthma, GERD, hiatal hernia, diabetes mellitus type 2, hyperlipidemia, and hypothyroidism. Patient's primary care provider is Dr. Ly. Patient has seen Dr. St in the office back in 2019, but has not followed up. Patient's asthma has been relatively well-controlled on a maintenance Symbicort inhaler. Patient came into the emergency room early this morning with reports of persistent cough with occasional yellow sputum production, shortness of breath, and wheezing. Patient states that her symptoms started on Tuesday. She did have an emergency room visit this Tuesday for the same symptoms, and was sent home on a combination of albuterol nebs and and steroid burst taper. She was negative for influenza, RSV, COVID-19 at that time. Patient's symptoms especially her cough had worsened since discharge, and she returned to the emergency room. She denies any fevers, chills, chest pain, hemoptysis. She states that her mother was sick and diagnosed with pneumonia last week. She is currently sitting up in bed, on room air, in no acute dis tress. Chest x-ray shows no acute infiltrates or evidence of pneumonia. CBC on arrival was unremarkable. No evidence of leukocytosis. BMP shows sodium 1:30, potassium 3.8, chloride 105, serum bicarb 18, BUN 15, creatinine 0.6, glucose 165. Lactic acid level was mildly elevated at 2.8. Troponin less than 0.012. No ECG evidence of ischemia. Patient is currently on a combination of bronchodilators and IV Solu-Medrol. She is afebrile. Vital signs are stable. The patient is seen today 08/13/2022 in follow-up on the regular medical floor. She is currently sitting up in bed. Awake and alert in no acute distress. Maintaining good O2 saturation in the mid 90s on room air. Feeling a bit better today compared to yesterday. Not quite back to her baseline. Still with a dry nonproductive cough. She is maintaining O2 saturations in the 90s on room air. Being treated mainly for bronchitis. Blood glucose 163. She is continued on DuoNeb inhalations, Symbicort, Singulair Solu-Medrol. Tessalon Perles for her cough. Lovenox for DVT prophylaxis. The patient is seen today 08/14/2022 in follow-up on the regular medical floor. She is sitting up in a chair at the bedside. Awake and alert in no acute distress. She states she did have another coughing episode last night. Not quite back to her baseline. Maintaining O2 saturations in the 90s on 2 L/m per nasal cannula. White count 11.0. Hemoglobin 12.1. Sodium 136. Potassium 4.0. Bicarb 23. BUN 23. Creatinine 0.8. Glucose 189. AST 56. ALT 51. She is continued on DuoNeb inhalations, Pulmicort and Perforomist inhalations, IV Solu- Medrol. Receiving Tessalon Perles, Singulair, Cepacol lozenges. Lovenox for DVT prophylaxis. The patient is seen today 08/15/2022 in follow-up on the regular medical floor. She is sitting up in bed. Awake and alert in no acute distress. Still with a dry nonproductive cough. Feeling better today compared to yesterday. Maintaining O2 saturations in the 90s on 2 L/m per nasal cannula. She's afebrile. Hemodynamically stable. Blood glucose 183. She is continued on DuoNeb inhalations, Pulmicort and Perforomist inhalations, IV Solu-Medrol. Receiving Tessalon Perles, Singulair, Cepacol lozenges. Lovenox for DVT prophylaxis. Objective - Vital Signs Vital signs: Vital Signs Temp 97.6 F 08/15/22 06:57 Pulse 72 08/15/22 08:11 Resp 16 08/15/22 06:57 BP 149/87 08/15/22 06:57 Pulse Ox 96 08/15/22 06:57 FiO2 Intake & Output 08/14/22 08/15/22 08/15/22 18:59 06:59 18:59 Intake Total 360 300 Balance 360 300 Intake: Oral 360 300 Other: # Voids 2 1 - Exam GENERAL EXAM: Alert, very pleasant 71-year-old female, been up in bed, on 2 L/m per nasal cannula, comfortable in no apparent distress. HEAD: Normocephalic. EYES: Normal reaction of pupils, equal size. NOSE: Clear with pink turbinates. THROAT: No erythema or exudates. NECK: No masses, no JVD. CHEST: No chest wall deformity. LUNGS: Equal air entry with faint end expiratory wheeze. CVS: S1 and S2 normal with no audible murmur, regular rhythm. ABDOMEN: No hepatosplenomegaly, normal bowel sounds, no guarding or rigidity. SPINE: No scoliosis or deformity SKIN: No rashes CENTRAL NERVOUS SYSTEM: No focal deficits, tone is normal in all 4 extremities. EXTREMITIES: There is no peripheral edema. No clubbing, no cyanosis. Peripheral pulses are intact. - Labs CBC & Chem 7: 08/14/22 06:07 08/14/22 06:02 Labs: Abnormal Lab Results - Last 24 Hours (Table) 08/14/22 08/14/22 08/14/22 Range/Units 11:53 17:36 20:21 POC Glucose (mg/dL) 222 H 177 H 215 H (70-110) mg/dL 08/15/22 Range/Units 06:30 POC Glucose (mg/dL) 183 H (70-110) mg/dL Assessment and Plan Assessment: Acute exacerbation of mild persistent bronchial asthma secondary to acute bronchitis. Chest x-ray shows no acute cardiopulmonary processes. No focal consolidation or evidence of pneumonia. On a recent ER visit for the same symptoms she was negative for RSV, influenza, COVID-19 on 08/09/2022. GERD without esophagitis Hiatal hernia Diabetes mellitus type 2, [id number] Hyperlipidemia Hypothyroidism Never smoker Plan: The patient was seen and evaluated Medications and labs reviewed Improved and back to her baseline Cleared for discharge from the pulmonary standpoint Continue her home pulmonary medications Add Symbicort Complete a prednisone taper starting at 40 mg daily 4 days Follow up with Dr. St in our office in 1 week We will continue to follow I have personally seen and examined the patient, performed the documentation and the assessment and plan as written. Number of minutes spent on the visit: 10.
[2022-08-15 11:41] LABS: Glucose,Whole Blood 204 mg/dL (70-110)
[2022-08-15 13:45] LABS: ALT 57 U/L (8-44); AST 49 U/L (13-35); Albumin/Globulin Ratio 1.54 Ratio (1.60-3.17); Alkaline Phosphatase 51 U/L (41-126); BUN/Creat Ratio 29.88 Ratio (12.00-20.00); Blood Urea Nitrogen 23.9 mg/dL (9.0-27.0); Calcium 9.1 mg/dL (8.7-10.3); Carbon Dioxide 21.8 mmol/L (21.6-31.8); Chloride 102 mmol/L (96-109); Globulin 2.6 d/dL (1.6-3.3); Glucose 177 mg/dL (70-110); Potassium 4.8 mmol/L (3.5-5.5); Sodium 137 mmol/L (135-145); Total Bilirubin 0.3 mg/dL (0.3-1.2); Total Protein 6.6 d/dL (6.2-8.2)
[2022-08-15] MEDS ORDERED: SENNOSIDES 8.6 MG TAB PO PRN (15:25)
--- NOTE | 2022-08-15 15:30 | P.PN ---
Subjective Progress Note Date: 08/15/22 this is a 71-year-old female with a previous medical history significant for hypertension and hypertensive cardio vascular disease, hyperlipidemia, hypothyroidism, history of mild persistent asthma, diabetes mellitus type 2, also arthritis, GERD, vitamin D deficiency, patient presented to the emergency department at [facility] because of increased coughing and increased shortness breath, apparently the patient was in the ER on 08/09/2022 and she was diagnosed as having acute asthma exacerbation and she was placed on steroid burst and taper and she was supposed to follow-up with me as an outpatient, however the patient became quite short of breath and quite wheezy she ended up coming back to the emergency department with increased respiratory distress with increased shortness breath and increased coughing her oxygenation was around 89% room air, and because of that she was admitted to the hospital she was started on Solu-Medrol 60 mg IV push every 6 hours along with DuoNeb 3 mL nebulization 4 times every day, and she was started on oxygen support as needed, she was seen in consultation by pulmonary medicine who recommended for the patient to be admitted to the hospital and to reevaluate in the next 24 hours, patient did have a chest x-ray that did not show any evidence of acute pneumonia, therefore the patient was admitted to the hospital for evaluation and treatment of acute asthma exacerbation 08/13: Patient continues to have a significant dry cough with no phlegm production, continues to have laryngitis, she would be maintained on Solu-Medrol 60 mg IV push every 6 hours for another 24 hours, we will try to decrease it to 40 mg IV push every 8 hours, hopefully she will be discharged home in the next 1 or 2 days. 08/14/2022 Patient is seen and evaluated follow-up this morning reporting continued shortness of breath although feels significantly improved since yesterday. Patient reports she had a difficult night with increased shortness of breath and one episode of feeling as if she was unable to catch her breath. Patient is maintained on DuoNeb treatments along with IV steroids with pulmonary following closely. Patient is afebrile with no reports of chest pain or palpitations. Patient reports very little sleep and requesting her melatonin be renewed. Patient reports cough and quite bronchospastic and dry with no significant sputum noted. Patient is currently on room air and using 2 L nasal cannula as needed for supplemental oxygen. Patient does not wear oxygen outpatient 08/15/2022 Patient is seen and evaluated in follow-up today with pulmonary following closely maintained on IV steroids along with DuoNeb treatments and perforomist with Pulmicort has been added. Patient reports she was able to get a little restless last night and reports to feeling somewhat improved. Patient feels exerted with dyspnea although has been up and walking more frequently. Patient is using supplemental oxygen at 2 L with oxygen saturations of 96-98%. Recommend wean FiO2 as tolerated. Patient is using this for comfort rather than requiring it as she was found to be 94% on room air. Recommend continue with current medication regimen and consider possible discharge in 24 hours. Patient to follow-up with pulmonary outpatient and we'll transition to a prednisone taper on discharge. Patient currently reports she did not have a bowel movement in the last few days and will add Senokot. Patient is afebrile with no reports of worsening shortness of breath. Patient denies chest pain or palpitations. No reported nausea or vomiting. Patient continues with coughing and congestion and reports is getting a lot of congestion and phlegm coming out. Review of systems: Constitutional: No reports of fatigue, no fever, or chills Cardiovascular: No reports of chest pain or palpitations Respiratory: reports of shortness of breath with exertion and continued dry cough GI: No reports of nausea, vomiting, or diarrhea : No reports of dysuria or retention Neurovascular: No reports of weakness or numbness All medications have been reviewed PHYSICAL EXAMINATION: General: 71-year-old female currently sitting up in the chair room air, awake, alert and oriented 3, well-developed, well-nourished patient appears much more awake and less exhausted today HEENT: Head is atraumatic, normocephalic, pupils were equal round reactive to light and recommendation, extraocular muscle movement were intact, sclera nonicteric, conjunctivae were pale, mucous membranes of the mouth are somewhat dry. Neck: Supple, no JVP, normal carotid upstroke bilaterally, no lymphadenopathy. Chest: Decreased breath sounds at the bases, few rhonchi, bilateral expiratory wheezes noted on exam although improved from yesterday and improved aeration as well, no chest wall tenderness, no intercostal retractions. Heart: First heart sound is normal, second heart sound is normal there is CAROLE 2/6 located at the left sternal border Abdomen: Soft, nontender, nondistended, positive bowel sounds. Extremities: There is no edema no calf tenderness DP +2 bilaterally. Neurologic examination: Patient is awake alert and oriented X 3, cranial nerves II-12 appear grossly intact, muscle power were 5 out of 5 in upper extremities and 5 out of 5 in bilateral lower extremities, deep tendon reflexes normal bilaterally. ASSESSMENT AND PLAN: 1. acute hypoxemic respiratory failure due to acute asthma exacerbation. Continue Solu-Medrol 60 mg IV push every 6 hours, DuoNeb 3 mL nebulization 4 times every day, oxygen 2 L cannula, continue montelukast 10 mg orally at bedtime, monitor the patient's symptoms is very closely, Pulmonary following and adding Perforomist along with Pulmicort and recommend continue with IV steroids and DuoNeb treatments. Symbicort discontinued. 2. hypertension and hypertensive cardiovascular disease. Continue patient on losartan 12.5 mg once every day, monitor the patient blood pressure very closely. 3. Hyperlipidemia. Continue pravastatin 20 mg at bedtime. 4. Diabetes mellitus type 2. Continue Farxiga 5 mg orally once every day. Recommend sliding scale as needed with Accu-Cheks before meals and at bedtime 5. Hypothyroidism. Continue levothyroxine 100 mg orally once every day. 6. Vitamin D deficiency. Continue vitamin D supplements. 7. DVT. Reflexes. Continue patient on Lovenox 40 mg subcutaneously every 24 hours. 8. GERD with GI Prophylaxis. Continue famotidine 40 mg at bedtime along with pantoprazole 40 mg orally once every day Plan: Recommend continue current medications and regimen with pulmonary following closely. Patient is maintained on DuoNeb treatments along with IV steroids and Symbicort being discontinued with Perforomist and Pulmicort being added. Pulmonary following and patient will go on a prednisone taper along with breathing inhalational treatments and close outpatient follow-up. Patient continues to be dyspneic with some exertion with frequent coughing spells and bronchospastic would recommend monitoring overnight with possible discharge in 24 hours. Patient reports has not had a bowel movement since prior to admission and will add Senokot as needed Encouraged to increase activity as tolerated. Patient reports she has been up and walking more frequently. Patient reports she was able to sleep last night and did well with melatonin Probable discharge in the next 24 hours Currently covering for Dr. Ly he will resume care on 08/16/2022 The impression and plan of care has been dictated by Tara Taylor, Nurse Practitioner as directed. Dr. Madyson MD I have performed a history and examination and MDM of this patient, discussed t he same with the dictator, and agree with the dictator's assessment and plan as written ,documented as a scribe. Based on total visit time, I have performed more than 50% of the visit. Objective - Vital Signs Vital signs: Vital Signs Temp 97.6 F 08/15/22 06:57 Pulse 72 08/15/22 08:11 Resp 16 08/15/22 06:57 BP 149/87 08/15/22 06:57 Pulse Ox 96 08/15/22 06:57 FiO2 Intake & Output 08/14/22 08/15/22 08/15/22 18:59 06:59 18:59 Intake Total 360 300 Balance 360 300 Intake: Oral 360 300 Other: # Voids 2 1 - Labs CBC & Chem 7: 08/14/22 06:07 08/15/22 07:17 Labs: Abnormal Lab Results - Last 24 Hours (Table) 08/14/22 08/14/22 08/14/22 Range/Units 11:53 17:36 20:21 POC Glucose (mg/dL) 222 H 177 H 215 H (70-110) mg/dL 08/15/22 Range/Units 06:30 POC Glucose (mg/dL) 183 H (70-110) mg/dL
[2022-08-15 17:54] LABS: Glucose,Whole Blood 180 mg/dL (70-110)
[2022-08-15 19:58] LABS: Glucose,Whole Blood 211 mg/dL (70-110)
[2022-08-15] MEDS: PRAVASTATIN SODIUM 20 MG TAB PO SCH (20:48)
[2022-08-15] MEDS: MELOXICAM 7.5 MG TAB PO SCH (20:48)
[2022-08-15] MEDS: FAMOTIDINE 20 MG TAB PO SCH (20:48)
[2022-08-15] MEDS: MONTELUKAST 10 MG TAB PO SCH (20:49)
[2022-08-15] MEDS: MELATONIN 5 MG TABLET PO PRN (20:53)
[2022-08-16] MEDS: IPRATROPIUM-ALBUTEROL 3 ML NEB INHALATION PRN (01:12)
[2022-08-16] MEDS: methylPREDNISolone SOD SUCCI 125 MG/2 ML VIAL IV SCH ×2 (06:03→12:10)
[2022-08-16] MEDS: LEVOTHYROXINE 100 MCG TAB PO SCH (06:03)
[2022-08-16] MEDS: INSULIN ASPART (NovoLOG) 100 UNIT/ML VIAL SQ SCH ×3 (06:06→18:24)
[2022-08-16 06:08] LABS: Glucose,Whole Blood 197 mg/dL (70-110)
[2022-08-16] MEDS: PANTOPRAZOLE 40 MG TABLET PO SCH (06:11)
[2022-08-16] MEDS: LOSARTAN 25 MG TAB PO SCH (08:00)
[2022-08-16] MEDS: BUDESONIDE 1 MG/2 ML NEBU INHALATION SCH ×2 (08:25→20:05)
[2022-08-16] MEDS: IPRATROPIUM-ALBUTEROL 3 ML NEB INHALATION SCH ×4 (08:25→20:06)
[2022-08-16] MEDS: FORMOTEROL FUMARATE 20 MCG/2 ML NEBU INHALATION SCH ×2 (08:25→20:06)
[2022-08-16] MEDS: BENZONATATE 100 MG CAP PO SCH ×2 (09:45→16:11)
[2022-08-16] MEDS: ENOXAPARIN 40 MG/0.4 ML SYRINGE SQ SCH (09:45)
[2022-08-16] MEDS: DAPAGLIFLOZIN PROPANEDIOL 5 MG TABLET PO SCH (09:45)
[2022-08-16 09:50] LABS: Glucose,Whole Blood 250 mg/dL (70-110)
[2022-08-16 11:34] LABS: Glucose,Whole Blood 284 mg/dL (70-110)
--- NOTE | 2022-08-16 16:04 | P.PN ---
Subjective Progress Note Date: 08/16/22 I am seeing this patient in new consultation today 08/12/2022 in the emergency room for acute asthma exacerbation secondary to acute bronchitis. Patient is a 71-year-old white female with past medical history significant for mild persistent bronchial asthma, GERD, hiatal hernia, diabetes mellitus type 2, hyperlipidemia, and hypothyroidism. Patient's primary care provider is Dr. Ly. Patient has seen Dr. St in the office back in 2019, but has not followed up. Patient's asthma has been relatively well-controlled on a maintenance Symbicort inhaler. Patient came into the emergency room early this morning with reports of persistent cough with occasional yellow sputum production, shortness of breath, and wheezing. Patient states that her symptoms started on Tuesday. She did have an emergency room visit this Tuesday for the same symptoms, and was sent home on a combination of albuterol nebs and and steroid burst taper. She was negative for influenza, RSV, COVID-19 at that time. Patient's symptoms especially her cough had worsened since discharge, and she returned to the emergency room. She denies any fevers, chills, chest pain, hemoptysis. She states that her mother was sick and diagnosed with pneumonia last week. She is currently sitting up in bed, on room air, in no acute di stress. Chest x-ray shows no acute infiltrates or evidence of pneumonia. CBC on arrival was unremarkable. No evidence of leukocytosis. BMP shows sodium 1:30, potassium 3.8, chloride 105, serum bicarb 18, BUN 15, creatinine 0.6, glucose 165. Lactic acid level was mildly elevated at 2.8. Troponin less than 0.012. No ECG evidence of ischemia. Patient is currently on a combination of bronchodilators and IV Solu-Medrol. She is afebrile. Vital signs are stable. The patient is seen today 08/13/2022 in follow-up on the regular medical floor. She is currently sitting up in bed. Awake and alert in no acute distress. Maintaining good O2 saturation in the mid 90s on room air. Feeling a bit better today compared to yesterday. Not quite back to her baseline. Still with a dry nonproductive cough. She is maintaining O2 saturations in the 90s on room air. Being treated mainly for bronchitis. Blood glucose 163. She is continued on DuoNeb inhalations, Symbicort, Singulair Solu-Medrol. Tessalon Perles for her cough. Lovenox for DVT prophylaxis. The patient is seen today 08/14/2022 in follow-up on the regular medical floor. She is sitting up in a chair at the bedside. Awake and alert in no acute distress. She states she did have another coughing episode last night. Not carlos a te back to her baseline. Maintaining O2 saturations in the 90s on 2 L/m per nasal cannula. White count 11.0. Hemoglobin 12.1. Sodium 136. Potassium 4.0. Bicarb 23. BUN 23. Creatinine 0.8. Glucose 189. AST 56. ALT 51. She is continued on DuoNeb inhalations, Pulmicort and Perforomist inhalations, IV Solu- Medrol. Receiving Tessalon Perles, Singulair, Cepacol lozenges. Lovenox for DVT prophylaxis. The patient is seen today 08/15/2022 in follow-up on the regular medical floor. She is sitting up in bed. Awake and alert in no acute distress. Still with a dry nonproductive cough. Feeling better today compared to yesterday. Maintaining O2 saturations in the 90s on 2 L/m per nasal cannula. She's afebrile. Hemodynamically stable. Blood glucose 183. She is continued on DuoNeb inhalations, Pulmicort and Perforomist inhalations, IV Solu-Medrol. Receiving Tessalon Perles, Singulair, Cepacol lozenges. Lovenox for DVT prophylaxis. On 08/16/2022, the patient is being seen for a follow-up. She suffers from acute asthma exacerbation. She's much improved at this point in time. She is still on IV Solu-Medrol 60 mg every 6 hours. She is on bronchodilators around the clock. She is not having any pneumonia and the chest x-ray was clear time of admission. No chest pain. No pleurisy. No hemoptysis. The patient remains on Symbicort on outpatient basis. Blood sugars today is elevated secondary to systemic steroids. Objective - Vital Signs Vital signs: Vital Signs Temp 97.8 F 08/16/22 13:20 Pulse 79 08/16/22 13:20 Resp 20 08/16/22 13:20 BP 97/56 08/16/22 13:20 Pulse Ox 97 08/16/22 13:20 FiO2 Intake & Output 08/15/22 08/16/22 08/16/22 18:59 06:59 18:59 Intake Total 488 318 Balance 488 318 Intake: Oral 488 318 Other: Voiding Method Toilet Toilet # Voids 2 2 4 - Exam in no apparent distress. HEAD: Normocephalic. EYES: Normal reaction of pupils, equal size. NOSE: Clear with pink turbinates. THROAT: No erythema or exudates. NECK: No masses, no JVD. CHEST: No chest wall deformity. LUNGS: Equal air entry with faint end expiratory wheeze. CVS: S1 and S2 normal with no audible murmur, regular rhythm. ABDOMEN: No hepatosplenomegaly, normal bowel sounds, no guarding or rigidity. SPINE: No scoliosis or deformity SKIN: No rashes CENTRAL NERVOUS SYSTEM: No focal deficits, tone is normal in all 4 extremities. EXTREMITIES: There is no peripheral edema. No clubbing, no cyanosis. Peripheral pulses are intact. - Labs CBC & Chem 7: 08/14/22 06:07 08/15/22 07:17 Labs: Abnormal Lab Results - Last 24 Hours (Table) 08/15/22 08/15/22 08/16/22 Range/Units 17:46 19:57 06:06 POC Glucose (mg/dL) 180 H 211 H 197 H (70-110) mg/dL 08/16/22 08/16/22 Range/Units 09:49 11:32 POC Glucose (mg/dL) 250 H 284 H (70-110) mg/dL Assessment and Plan Plan: Acute exacerbation of mild persistent bronchial asthma secondary to acute bronchitis. Chest x-ray shows no acute cardiopulmonary processes. No focal consolidation or evidence of pneumonia. On a recent ER visit for the same symptoms she was negative for RSV, influenza, COVID-19 on 08/09/2022. GERD without esophagitis Hiatal hernia Diabetes mellitus type 2, [id number] Hyperlipidemia Hypothyroidism Never smoker Plan: Start IV Solu-Medrol and start the patient prednisone burst taper Continue her home pulmonary medications, including Symbicort as maintenance Complete a prednisone taper starting at 40 mg daily 4 days and to be tapered by 10 mg every 4 days Follow up with Dr. St in our office in 1 week
[2022-08-16] MEDS ORDERED: predniSONE 20 MG TAB PO SCH (16:15)
[2022-08-16 17:31] LABS: Glucose,Whole Blood 204 mg/dL (70-110)
--- NOTE | 2022-08-16 18:59 | P.DS ---
Providers Date of admission: 08/12/22 03:25 Expected date of discharge: 08/16/22 Attending physician: Ken yL Consults: 08/12/22 03:28 Consult Physician Routine Consulting Provider: Bryan St Consult Reason/Comments: asthma exacerbation Do you want consulting provider notified?: Yes, Notify in am Primary care physician: Ken Ly [facility] Course: this is a 71-year-old female with a previous medical history significant for hypertension and hypertensive cardio vascular disease, hyperlipidemia, hypothyroidism, history of mild persistent asthma, diabetes me llitus type 2, also arthritis, GERD, vitamin D deficiency, patient presented to the emergency department at [facility] because of increased coughing and increased shortness breath, apparently the patient was in the ER on 08/09/2022 and she was diagnosed as having acute asthma exacerbation and she was placed on steroid burst and taper and she was supposed to follow-up with me as an outpatient, however the patient became quite short of breath and quite wheezy she ended up coming back to the emergency department with increased respiratory distress with increased shortness breath and increased coughing her oxygenation was around 89% room air, and because of that she was admitted to the hospital she was started on Solu-Medrol 60 mg IV push every 6 hours along with DuoNeb 3 mL nebulization 4 times every day, and she was started on oxygen support as needed, she was seen in consultation by pulmonary medicine who recommended for the patient to be admitted to the hospital and to reevaluate in the next 24 hours, patient did have a chest x-ray that did not show any evidence of acute pneumonia, therefore the patient was admitted to the hospital for evaluation and treatment of acute asthma exacerbation 08/13: Patient continues to have a significant dry cough with no phlegm production, continues to have laryngitis, she would be maintained on Solu-Medrol 60 mg IV push every 6 hours for another 24 hours, we will try to decrease it to 40 mg IV push every 8 hours, hopefully she will be discharged home in the next 1 or 2 days. 08/14/2022 Patient is seen and evaluated follow-up this morning reporting continued shortness of breath although feels significantly improved since yesterday. Patient reports she had a difficult night with increased shortness of breath and one episode of feeling as if she was unable to catch her breath. Patient is maintained on DuoNeb treatments along with IV steroids with pulmonary following closely. Patient is afebrile with no reports of chest pain or palpitations. Patient reports very little sleep and requesting her melatonin be renewed. Patient reports cough and quite bronchospastic and dry with no significant sputum noted. Patient is currently on room air and using 2 L nasal cannula as needed for supplemental oxygen. Patient does not wear oxygen outpatient 08/15/2022 Patient is seen and evaluated in follow-up today with pulmonary following closely maintained on IV steroids along with DuoNeb treatments and perforomist with Pulmicort has been added. Patient reports she was able to get a little restless last night and reports to feeling somewhat improved. Patient feels exerted with dyspnea although has been up and walking more frequently. Patient is using supplemental oxygen at 2 L with oxygen saturations of 96-98%. Recom mend wean FiO2 as tolerated. Patient is using this for comfort rather than requiring it as she was found to be 94% on room air. Recommend continue with current medication regimen and consider possible discharge in 24 hours. Patient to follow-up with pulmonary outpatient and we'll transition to a prednisone taper on discharge. Patient currently reports she did not have a bowel movement in the last few days and will add Senokot. Patient is afebrile with no reports of worsening shortness of breath. Patient denies chest pain or palpitations. No reported nausea or vomiting. Patient continues with coughing and congestion and reports is getting a lot of congestion and phlegm coming out. discharge Diagnoses: 1.acute hypoxemic respiratory failure due to acute asthma exacerbation. 2. hypertension and hypertensive cardiovascular disease. 3. Hyperlipidemia. 4. Diabetes mellitus type 2. 5. Hypothyroidism. 6. Vitamin D deficiency. 7. GERD with esophagitis Patient Condition at Discharge: Fair Plan - Discharge Summary Discharge Rx Participant: Yes New Discharge Prescriptions: No Action Levothyroxine Sodium [Synthroid] 100 mcg PO DAILY Celecoxib [CeleBREX] 200 mg PO HS Pravastatin Sodium [Pravachol] 20 mg PO HS Omeprazole 20 mg PO BID Montelukast [Singulair] 10 mg PO HS Losartan [Cozaar] 12.5 mg PO DAILY Dapagliflozin Propanediol [Farxiga] 5 mg PO DAILY Ipratropium Nebulized [Atrovent Nebulized 0.2 MG/ML] 0.5 mg INHALATION RT-Q6H PRN PRN Reason: Shortness Of Breath Famotidine [Pepcid] 40 mg PO HS predniSONE [Deltasone] 20 mg PO BID #10 tab Albuterol Inhaler [Ventolin Hfa Inhaler] 2 puff INHALATION RT-QID PRN PRN Reason: Shortness Of Breath Discharge Medication List Celecoxib [CeleBREX] 200 mg PO HS 12/25/13 [History] Levothyroxine Sodium [Synthroid] 100 mcg PO DAILY 12/25/13 [History] Montelukast [Singulair] 10 mg PO HS 08/15/18 [History] Omeprazole 20 mg PO BID 08/15/18 [History] Pravastatin Sodium [Pravachol] 20 mg PO HS 08/15/18 [History] Losartan [Cozaar] 12.5 mg PO DAILY 03/08/19 [History] predniSONE [Deltasone] 20 mg PO BID #10 tab 08/09/22 [Rx] Albuterol Inhaler [Ventolin Hfa Inhaler] 2 puff INHALATION RT-QID PRN 08/12/22 [History] Dapagliflozin Propanediol [Farxiga] 5 mg PO DAILY 08/12/22 [History] Famotidine [Pepcid] 40 mg PO HS 08/12/22 [History] Ipratropium Nebulized [Atrovent Nebulized 0.2 MG/ML] 0.5 mg INHALATION RT-Q6H PRN 08/12/22 [History] Follow up Appointment(s)/Referral(s): Ken Ly MD [Primary Care Provider] - 1-2 days
[2022-08-16 20:15] VITALS: BP 124/66; PULSE 90; RESP 19; TEMP 97.9
== END 2022-08-16 20:17 | disposition home or self-care (01) ==
LOC: EC 00:16 → 6NMEDSUR 03:25
PROVIDERS: ADMIT Internal Medicine; ATTEND Internal Medicine
DX: J96.01 Acute respiratory failure with hypoxia (principal); J45.901 Unspecified asthma with (acute) exacerbation; I11.9 Hypertensive heart disease without heart failure; E78.5 Hyperlipidemia, unspecified; E11.9 Type 2 diabetes mellitus without complications; E03.9 Hypothyroidism, unspecified; E55.9 Vitamin D deficiency, unspecified; K21.00 Gastro-esophageal reflux disease with esophagitis, without bleeding; M19.90 Unspecified osteoarthritis, unspecified site; Z90.49 Acquired absence of other specified parts of digestive tract; Z98.890 Other specified postprocedural states; E89.0 Postprocedural hypothyroidism; Z86.16 Personal history of COVID-19; Z80.1 Family history of malignant neoplasm of trachea, bronchus and lung; Z90.710 Acquired absence of both cervix and uterus; Z96.653 Presence of artificial knee joint, bilateral; Z80.8 Family history of malignant neoplasm of other organs or systems; Z80.3 Family history of malignant neoplasm of breast; Z82.49 Family history of ischemic heart disease and other diseases of the circulatory system; Z83.438 Family history of other disorder of lipoprotein metabolism and other lipidemia; J20.9 Acute bronchitis, unspecified; Z79.890 Hormone replacement therapy; Z79.52 Long term (current) use of systemic steroids; Z79.899 Other long term (current) drug therapy; Z79.51 Long term (current) use of inhaled steroids; Z79.84 Long term (current) use of oral hypoglycemic drugs; Z79.1 Long term (current) use of non-steroidal anti-inflammatories (NSAID); Z88.5 Allergy status to narcotic agent; Z91.09 Other allergy status, other than to drugs and biological substances
CPT/HCPCS: 96376 ×6; 96372 ×2; 96374; 99285; 36415; 94640 ×10; 94760 ×4; 93005; 80053 ×3; 83605; 83735; 84484; 85025 ×2; 85610; 85730; 83036; 71046; G0378 ×5; J2930 ×5; J1650 ×2; J7512

== ENCOUNTER 2023-01-05 01:02 | Observation (INO) | payer MEDICARE ==
[2023-01-05] MEDS ORDERED: ASPIRIN 81 MG PO STA (01:33)
[2023-01-05] MEDS ORDERED: SODIUM CHLORIDE 0.9% 1,000 ML IV STA (01:33)
[2023-01-05] MEDS ORDERED: DILTIAZEM DRIP BOLUS FROM BAG 1 MG SOLN IV ONE (01:33)
[2023-01-05] MEDS ORDERED: DILTIAZEM 125 MG in SODIUM CHLORIDE 0.9% 100 ML IV SCH (01:45)
--- NOTE | 2023-01-05 01:46 | ED ---
General Adult HPI - General Chief complaint: Arrhythmia/Palpitations Stated complaint: Heart Palpitations Time Seen by Provider: 01/05/23 01:09 Source: patient, RN notes reviewed, old records reviewed Mode of arrival: ambulatory Limitations: no limitations - History of Present Illness Initial comments: Patient is a 72-year-old female who presents emergency department for arrhythmia. Patient states she was laying in bed this evening when she began feeling like she is having a racing heart and palpitations. Heart rate was up to 155 bpm which is when she presents for further evaluation. No history of A. fib. He has a history of asthma, diabetes, hypothyroidism, hyperlipidemia, hypertension, fibromyalgia. Denies any history of cardiac stents or cardiac disease. Denies any marty chest pain or shortness of breath. Does endorse some mild nausea when symptoms started but nothing since. Denies any fevers, chills, cough. Denies any diarrhea, urinary complaints. Denies any lower extremity edema or recent long distance travel. Has no other acute complaints at this time. Presents for further evaluation at this time. - Related Data Home Medications Medication Instructions Recorded Confirmed Celecoxib [CeleBREX] 200 mg PO HS 12/25/13 08/12/22 Levothyroxine Sodium [Synthroid] 100 mcg PO DAILY 12/25/13 08/12/22 Montelukast [Singulair] 10 mg PO HS 08/15/18 08/12/22 Omeprazole 20 mg PO BID 08/15/18 08/12/22 Pravastatin Sodium [Pravachol] 20 mg PO HS 08/15/18 08/12/22 Losartan [Cozaar] 12.5 mg PO DAILY 03/08/19 08/12/22 Albuterol Inhaler [Ventolin Hfa 2 puff INHALATION RT-QID PRN 08/12/22 08/12/22 Inhaler] Dapagliflozin Propanediol [Farxiga] 5 mg PO DAILY 08/12/22 08/12/22 Famotidine [Pepcid] 40 mg PO HS 08/12/22 08/12/22 Ipratropium Nebulized [Atrovent 0.5 mg INHALATION RT-Q6H PRN 08/12/22 08/12/22 Nebulized 0.2 MG/ML] Previous Rx's Medication Instructions Recorded predniSONE [Deltasone] 20 mg PO BID #10 tab 08/09/22 Benzonatate [Tessalon Perles] 200 mg PO TID #21 cap 08/16/22 predniSONE [Deltasone] 40 mg PO DAILY #20 tab 08/16/22 Allergies Allergy/AdvReac Type Severity Reaction Status Date / Time cigarette smoke Allergy Unknown Dyspnea Verified 01/05/23 01:08 Opioids - Morphine Analogues Allergy Dyspnea Verified 01/05/23 01:08 tramadol Allergy Anaphylaxis, Verified 01/05/23 01:08 chest pain codeine AdvReac Anaphylaxis, Verified 01/05/23 01:08 chest pain cleaning chemicals AdvReac Mild Dyspnea Uncoded 01/05/23 01:08 Review of Systems ROS Statement: Those systems with pertinent positive or pertinent negative responses have been documented in the HPI. Review of Systems: CONST: Denies fever EYES: Denies blurry vision ENT: Denies nasal congestion C/V: Endorses Palpitations RESP: Denies shortness of breath GI: Denies abdominal pain : Denies dysuria SKIN: Denies rash. MSK: Denies joint pain. NEURO: Denies headache ROS Other: All systems not noted in ROS Statement are negative. Past Medical History Past Medical History: Asthma, Diabetes Mellitus, Fibromyalgia, GERD/Reflux, Rheumatoid Arthritis (RA), Thyroid Disorder Additional Past Medical History / Comment(s): covid X2 12/29 History of Any Multi-Drug Resistant Organisms: None Reported Past Surgical History: Bladder Surgery, Cholecystectomy, Heart Catheterization, Hysterectomy, Joint Replacement, Orthopedic Surgery Additional Past Surgical History / Comment(s): partial thyroidectomy. luis shoulder surgery, luis knee arthroscopy, bilateral knee replacement, luis catara cts, rt.trigger finger, Past Anesthesia/Blood Transfusion Reactions: Motion Sickness, Postoperative Nausea & Vomiting (PONV) Additional Past Anesthesia/Blood Transfusion Reaction / Comment(s): DIFFICULTY WAKING UP. PT CAN'T TOLERATE OPIOIDS. WAKES UP AFTER SURGERY WITH CHEST PAIN WHEN EVER GIVEN OPIOIDS. Past Psychological History: No Psychological Hx Reported Smoking Status: Never smoker Past Alcohol Use History: Occasional Past Drug Use History: None Reported - Past Family History Father Family Medical History: Cancer Additional Family Medical History / Comment(s): lung Mother Family Medical History: Cancer Additional Family Medical History / Comment(s): breast Sister(s) Family Medical History: Cancer Additional Family Medical History / Comment(s): SKIN CA General Exam - General Exam Comments Initial Comments: General: Appears in no acute distress. HEAD: Normal with no signs of head trauma. EYES: PERRLA, EOMI, conjunctiva normal, no discharge. ENT: Hearing grossly intact, normal oropharynx. RESPIRATORY: Clear breath sounds bilaterally. No wheezes, rales, or rhonchi. C/V: Irregular rate and rhythm. S1 and S2 auscultated. No significant lower extremity edema. Peripheral pulses 2+ and intact throughout. ABD: Abd is soft, nontender, nondistended EXT: Normal range of motion, no obvious deformity SKIN: No rashes or lesions observed on exposed skin. NEURO: Alert and oriented 4. Limitations: no limitations Course Vital Signs 01/05/23 01:06 Temperature 97.9 F Pulse Rate 139 H Respiratory 20 Rate Blood Pressure 115/79 O2 Sat by Pulse 97 Oximetry Medical Decision Making - Medical Decision Making Was pt. sent in by a medical professional or institution (, PA, MANAGER APPLE, urgent care, hospital, or fdc...) When possible be specific @ -No Did you speak to anyone other than the patient for history (EMS, parent, family, police, friend...)? What history was obtained from this source @ -No Did you review nursing and triage notes (agree or disagree)? Why? @ -I reviewed and agree with nursing and triage notes Were old charts reviewed (outside hosp., previous admission, EMS record, old EKG, old radiological studies, urgent care reports/EKG's, fdc records)? Report findings @ -Old charts reviewed Differential Diagnosis (chest pain, altered mental status, abdominal pain women, abdominal pain men, vaginal bleeding, weakness, fever, dyspnea, syncope, headache, dizziness, GI bleed, back pain, seizure, CVA, palpatations, mental health, musculoskeletal)? @ -Differential Palpitations Ventricular arrhythmias, atrial arrhythmias, myocardial infarction, anemia, thyrotoxicosis, electrolyte imbalance, hypokalemia, pulmonary embolism, pulmonary disease, drugs, alcohol, anxiety, stress.... This is not meant to be an all-inclusive list. EKG interpreted by me (3pts min.). @ -As above X-rays interpreted by me (1pt min.). @ -Chest x-ray shows no obvious acute cardio pulmonary process. CT interpreted by me (1pt min.). @ -None done U/S interpreted by me (1pt. min.). @ -None done What testing was considered but not performed or refused? (CT, X-rays, U/S, labs)? Why? @ -None What meds were considered but not given or refused? Why? @ -None Did you discuss the management of the patient with other professionals (professionals i.e. , PA, MANAGER APPLE, lab, RT, psych nurse, aids social worker, e commerce architect, teacher, global chief creative officer, lining caser)? Give summary @ - I spoke with the admitting physician, Dr. Ly who accepted the patient. Was smoking cessation discussed for >3mins.? @ -No Was critical care preformed (if so, how long)? @ -Yes, 36 minutes Were there social determinants of health that impacted care today? How? (Homelessness, low income, unemployed, alcoholism, drug addiction, transportation, low edu. Level, literacy, decrease access to med. care, half-way, rehab)? @ -No Was there de-escalation of care discussed even if they declined (Discuss DNR or withdrawal of care, Hospice)? DNR status @ -No What co-morbidities impacted this encounter? (DM, HTN, Smoking, COPD, CAD, Cancer, CVA, ARF, Chemo, Hep., AIDS, mental health diagnosis, sleep apnea, morbid obesity)? @ -None Was patient admitted / discharged? Hospital course, mention meds given and route, prescriptions, significant lab abnormalities, going to OR and other per tinent info. @ -Based on the patient's presentation and physical exam, I'm concerned for what appears to be new onset A. fib based on EKG. Vital signs otherwise are within acceptable limits other than the rapid ventricular response. Patient will be given a dose of aspirin, 1 L fluid bolus, and started on a Cardizem drip with a Cardizem bolus. We'll obtain generalized cardio pulmonary labs. Patient agreement with this plan. Patient will also be started on a heparin drip. EKG shows A. fib with RVR.Chest x-ray shows no obvious acute cardio pulmonary process. Patient's labs remarkable for a d-dimer within normal limits. Troponin is undetectable. BNP within normal limits. Remainder the labs with him except limits. Urine is still pending. On reevaluation, patient did convert to normal sinus rhythm. EKG confirms this. We'll continue the Cardizem drip at 2.5 mg. Patient will be admitted and placed on a heparin drip. She was in agreement this plan. Cardio to consulted. Echo ordered. I spoke with the admitting physician, Dr. Ly who accepted the patient. Undiagnosed new problem with uncertain prognosis? @ -No Drug Therapy requiring intensive monitoring for toxicity (Heparin, Nitro, Insulin, Cardizem)? @ -heparin, cardizem Were any procedures done? @ -No Diagnosis/symptom? @ -New-onset atrial fibrillation with RVR Acute, or Chronic, or Acute on Chronic? @ -Acute Uncomplicated (without systemic symptoms) or Complicated (systemic symptoms)? @ -Complicated Side effects of treatment? @ -No Exacerbation, Progression, or Severe Exacerbation? @ -No Poses a threat to life or bodily function? How? (Chest pain, [place], [place], pneumonia, PE, COPD, DKA, ARF, appy, cholecystitis, CVA, Diverticulitis, Homicidal, Suicidal, threat to staff... and all critical care pts) @ -Yes - Lab Data Result diagrams: 01/05/23 01:40 01/05/23 01:40 Lab Results 01/05/23 01/05/23 01/05/23 Range/Units 01:40 01:40 01:40 WBC 6.4 (3.8-10.6) k/uL RBC 4.15 (3.80-5.40) m/uL Hgb 13.0 (11.4-16.0) gm/dL Hct 39.3 (34.0-46.0) % MCV 94.8 (80.0-100.0) fL MCH 31.4 (25.0-35.0) pg MCHC 33.1 (31.0-37.0) g/dL RDW 12.4 (11.5-15.5) % Plt Count 192 (150-450) k/uL MPV 8.0 Neutrophils % 46 % Lymphocytes % 40 % Monocytes % 6 % Eosinophils % 5 % Basophils % 1 % Neutrophils # 2.9 (1.3-7.7) k/uL Lymphocytes # 2.6 (1.0-4.8) k/uL Monocytes # 0.4 (0-1.0) k/uL Eosinophils # 0.3 (0-0.7) k/uL Basophils # 0.1 (0-0.2) k/uL PT 10.0 (10.0-12.5) sec INR 0.9 (<1.2) APTT 23.9 (22.0-30.0) sec D-Dimer 0.42 (<0.60) mg/L FEU Sodium 141 (137-145) mmol/L Potassium 3.7 (3.5-5.1) mmol/L Chloride 105 (98-107) mmol/L Carbon Dioxide 25 (22-30) mmol/L Anion Gap 11 mmol/L BUN 19 H (7-17) mg/dL Creatinine 0.84 (0.52-1.04) mg/dL Est GFR (CKD-EPI)AfAm 81 (>60 ml/min/1.73 sqM) Est GFR (CKD-EPI)NonAf 70 (>60 ml/min/1.73 sqM) Glucose 147 H (74-99) mg/dL Calcium 9.1 (8.4-10.2) mg/dL Magnesium 2.0 (1.6-2.3) mg/dL Total Bilirubin 0.2 (0.2-1.3) mg/dL AST 24 (14-36) U/L ALT 20 (4-34) U/L Alkaline Phosphatase 49 (38-126) U/L Troponin I (0.000-0.034) ng/mL NT-Pro-B Natriuret Pep 181 pg/mL Total Protein 6.7 (6.3-8.2) g/dL Albumin 4.1 (3.5-5.0) g/dL TSH 2.960 (0.465-4.680) mIU/L Influenza Type A (PCR) (Not Detectd) Influenza Type B (PCR) (Not Detectd) RSV (PCR) (Not Detectd) SARS-CoV-2 (PCR) (Not Detectd) 01/05/23 01/05/23 Range/Units 01:40 01:59 WBC (3.8-10.6) k/uL RBC (3.80-5.40) m/uL Hgb (11.4-16.0) gm/dL Hct (34.0-46.0) % MCV (80.0-100.0) fL MCH (25.0-35.0) pg MCHC (31.0-37.0) g/dL RDW (11.5-15.5) % Plt Count (150-450) k/uL MPV Neutrophils % % Lymphocytes % % Monocytes % % Eosinophils % % Basophils % % Neutrophils # (1.3-7.7) k/uL Lymphocytes # (1.0-4.8) k/uL Monocytes # (0-1.0) k/uL Eosinophils # (0-0.7) k/uL Basophils # (0-0.2) k/uL PT (10.0-12.5) sec INR (<1.2) APTT (22.0-30.0) sec D-Dimer (<0.60) mg/L FEU Sodium (137-145) mmol/L Potassium (3.5-5.1) mmol/L Chloride (98-107) mmol/L Carbon Dioxide (22-30) mmol/L Anion Gap mmol/L BUN (7-17) mg/dL Creatinine (0.52-1.04) mg/dL Est GFR (CKD-EPI)AfAm (>60 ml/min/1.73 sqM) Est GFR (CKD-EPI)NonAf (>60 ml/min/1.73 sqM) Glucose (74-99) mg/dL Calcium (8.4-10.2) mg/dL Magnesium (1.6-2.3) mg/dL Total Bilirubin (0.2-1.3) mg/dL AST (14-36) U/L ALT (4-34) U/L Alkaline Phosphatase (38-126) U/L Troponin I <0.012 (0.000-0.034) ng/mL NT-Pro-B Natriuret Pep pg/mL Total Protein (6.3-8.2) g/dL Albumin (3.5-5.0) g/dL TSH (0.465-4.680) mIU/L Influenza Type A (PCR) Not Detected (Not Detectd) Influenza Type B (PCR) Not Detected (Not Detectd) RSV (PCR) Not Detected (Not Detectd) SARS-CoV-2 (PCR) Not Detected (Not Detectd) - EKG Data -: EKG Interpreted by Me EKG Comments: 12-lead Electrocardiogram Interpretation Note EKG was reviewed and interpreted by myself. 12-lead ECG performed at 0114 is interpreted by me as revealing atrial fibrillation with RVR at a rate of 131 beats per minute. Calvert is normal. QRS durations 115 ms, QTc is 350 ms. No discernible P waves present. Somewhat generalized very slight ST segment depression, mostly in the lateral precordial leads which is seen on prior EKGs.. There were no obvious acute ST or T wave abnormalities to suggest myocardial ischemia or injury. R wave progression across the precordium was satisfactory. 12-lead Electrocardiogram Interpretation Note EKG was reviewed and interpreted by myself. 12-lead ECG performed at 0250 is interpreted by me as revealing normal sinus rhythm at a rate of 75 beats per minute. Calvert is normal. SD interval is 126 ms, QRS durations 115 ms, QTc is 419 ms. She has an incomplete right bundle-branch block.. There were no ST or T wave abnormalities to suggest myocardial ischemia or injury. R wave progression across the precordium was satisfactory. By my interpretation this EKG is non-diagnostic for acute ischemia. Critical Care Time Critical Care Time: Yes Total Critical Care Time: 36 Disposition Clinical Impression: Atrial fibrillation Disposition: ADMITTED IP TO THIS HOSP Condition: Stable Referrals: Ken Ly MD [Primary Care Provider] - 1-2 days Time of Disposition: 02:45
[2023-01-05 02:08] LABS: ALT 20 U/L (4-34); AST 24 U/L (14-36); African American GFR (CKD) 81 (>60 ml/min/1.73 sqM); Albumin 4.1 g/dL (3.5-5.0); Alkaline Phosphatase 49 U/L (38-126); Anion Gap 11 mmol/L; Blood Urea Nitrogen 19 mg/dL (7-17); Calcium 9.1 mg/dL (8.4-10.2); Carbon Dioxide 25 mmol/L (22-30); Chloride 105 mmol/L (98-107); Glucose 147 mg/dL (74-99); Non-African American GFR(CKD) 70 (>60 ml/min/1.73 sqM); Potassium 3.7 mmol/L (3.5-5.1); Sodium 141 mmol/L (137-145); Total Bilirubin 0.2 mg/dL (0.2-1.3); Total Protein 6.7 g/dL (6.3-8.2)
[2023-01-05 02:17] LABS: NT-Pro-B-Type Natriuretic Pept 181 pg/mL
[2023-01-05 02:24] LABS: Basophils # (A) 0.1 k/uL (0-0.2); Basophils % (A) 1 %; Eosinophils # (A) 0.3 k/uL (0-0.7); Eosinophils % (A) 5 %; HCT 39.3 % (34.0-46.0); Lymphocytes # (A) 2.6 k/uL (1.0-4.8); Lymphocytes % (A) 40 %; MCH 31.4 pg (25.0-35.0); MCHC 33.1 g/dL (31.0-37.0); MCV 94.8 fL (80.0-100.0); Monocytes # (A) 0.4 k/uL (0-1.0); Monocytes % (A) 6 %; Neutrophils # (A) 2.9 k/uL (1.3-7.7); Neutrophils % (A) 46 %; Platelet Count 192 k/uL (150-450); RBC 4.15 m/uL (3.80-5.40); RDW 12.4 % (11.5-15.5); WBC 6.4 k/uL (3.8-10.6)
[2023-01-05 02:40] LABS: INR 0.9 (<1.2); Partial Thromboplastin Time 23.9 sec (22.0-30.0)
[2023-01-05] MEDS ORDERED: HEPARIN SODIUM 1,000 UN/ML (10ML VL) IV PRN (02:44)
[2023-01-05] MEDS ORDERED: HEPARIN SODIUM 1,000 UN/ML (10ML VL) IV ONE (02:44)
[2023-01-05] MEDS ORDERED: HEPARIN SOD,PORK IN 0.45% NACL 25,000 UNIT in 0.45% NACL 1 250ML.BAG IV SCH (02:45)
[2023-01-05] MEDS ORDERED: NALOXONE 0.4 MG/ML 1 ML VIAL IV PRN (03:16)
[2023-01-05 03:22] LABS: Appearance,Urine Clear (Clear); Bilirubin,Urine Negative (Negative); Blood,Urine Negative (Negative); Color,Urine Colorless; Glucose,Urine (UA) 4+ (Negative); Ketones,Urine Negative (Negative); Leukocyte Esterase,Urine Negative (Negative); Nitrite,Urine Negative (Negative); PH, Urine 6.5 (5.0-8.0); Protein,Urine Negative (Negative); Specific Gravity,Urine 1.003 (1.001-1.035); Urobilinogen,Urine 0.2 mg/dL (<2.0)
--- NOTE | 2023-01-05 04:12 | XR ---
EXAM: XR Chest, 2 Views CLINICAL HISTORY: ITS.REASON XR Reason: dysrhythmia TECHNIQUE: Frontal and lateral views of the chest. COMPARISON: No relevant prior studies available. FINDINGS: Lungs: No consolidation or mass. Pleural space: No effusion. Heart: No cardiomegaly. Bones/joints: No acute findings. IMPRESSION: No acute cardiopulmonary process.
[2023-01-05] MEDS: APIXABAN 5 MG TAB PO SCH ×2 (12:31→20:51)
[2023-01-05] MEDS: METOPROLOL TARTRATE 25 MG TAB PO SCH ×2 (12:31→20:51)
--- NOTE | 2023-01-05 13:02 | P.CRDCN ---
History of Present Illness History of present illness: HISTORY OF PRESENT ILLNESS: This is a 72-year-old female with a past medical history significant for hypertension, hyperlipidemia, diabetes, asthma, and strong family history of CVA. Patient follows in the office with Dr. Mccabe. We have been asked to see the patient in consultation for new onset A. fib with RVR. Patient examined at the bedside in the emergency room. Patient states yesterday she was laying down in bed trying to sleep when she felt her heart racing and her ears. She states that she got up to check her blood pressure and noted that her heart rate was around 150. She also reports her systolic blood pressure was in the 80s. She presented to the hospital for further evaluation. The patient was found to be in A. fib with RVR. The patient denies a history of atrial fibrillation. She was started on IV heparin and IV Cardizem. She has since converted to sinus mechanism and is maintaining sinus mechanism at the time of examination. She currently denies any chest pain or pressure. She denies any shortness of breath. Blood pressure stable. * EKG reveals atrial fibrillation/flutter with RVR * Chest xray negative for acute process * Laboratory data: Troponin negative 3. TSH 2.960. * Current home cardiac medications include losartan 12.5 mg daily and pravastatin 20 mg at night * Most recent echocardiogram obtained in January 2019 revealed ejection fraction 55% * Patient underwent stress testing in January 2019 which was negative for ischemia REVIEW OF SYSTEMS: At the time of my exam: CONSTITUTIONAL: Denies fever or chills. HEENT: Denies blurred vision, vision changes, or eye pain. Denies hemoptysis CARDIOVASCULAR: Denies chest pain. Denies orthopnea. Denies PND. Denies palpitations RESPIRATORY: Denies shortness of breath. GASTROINTESTINAL: Denies abdominal pain. Denies nausea or vomiting. HEMATOLOGIC: Denies bleeding disorders. GENITOURINARY: Denies any blood in urine. SKIN: Denies pruitis. Denies rash. PHYSICAL EXAM: VITAL SIGNS: Reviewed. GENERAL: Well-developed in no acute distress. HEENT: Head is normocephalic. Pupils are equal, round. Sclerae anicteric. Mucous membranes of the mouth are moist. Neck supple. No JVD or thyromegaly LUNGS: Respirations even and unlabored. Lungs essentially clear to auscultation bilaterally. HEART: Regular rate and rhythm. S1 and S2 heard. ABDOMEN: Soft. Nondistended. Nontender. EXTREMITIES: Normal range of motion. No clubbing or cyanosis. Peripheral pulses intact. No lower extremity edema NEUROLOGIC: Awake and alert. Oriented x 3. ASSESSMENT: Palpitations New onset atrial fibrillation/typical atrial flutter with RVR Hypertension Hyperlipidemia Diabetes Asthma Strong family history of CVA PLAN: Obtain 2-D echo to assess cardiac structure and function Resume home cardiac medications Discontinue IV heparin. Begin Eliquis 5 mg twice a day Begin metoprolol tartrate 25 mg twice a day Patient is stable for discharge home today pending echocardiogram results She is to follow-up in the office with Dr. Mccabe Nurse practitioner note has been reviewed by physician. Signing provider agrees with the documented findings, assessment, and plan of care. Past Medical History Past Medical History: Asthma, Diabetes Mellitus, Fibromyalgia, GERD/Reflux, Rheumatoid Arthritis (RA), Thyroid Disorder Additional Past Medical History / Comment(s): covid X2 12/29 History of Any Multi-Drug Resistant Organisms: None Reported Past Surgical History: Bladder Surgery, Cholecystectomy, Heart Catheterization, Hysterectomy, Joint Replacement, Orthopedic Surgery Additional Past Surgical History / Comment(s): partial thyroidectomy. luis shoulder surgery, luis knee arthroscopy, bilateral knee replacement, luis cataracts, rt.trigger finger, Past Anesthesia/Blood Transfusion Reactions: Motion Sickness, Postoperative Nausea & Vomiting (PONV) Additional Past Anesthesia/Blood Transfusion Reaction / Comment(s): DIFFICULTY WAKING UP. PT CAN'T TOLERATE OPIOIDS. WAKES UP AFTER SURGERY WITH CHEST PAIN WHEN EVER GIVEN OPIOIDS. Past Psychological History: No Psychological Hx Reported Smoking Status: Never smoker Past Alcohol Use History: Occasional Past Drug Use History: None Reported - Past Family History Father Family Medical History: Cancer Additional Family Medical History / Comment(s): lung Mother Family Medical History: Cancer Additional Family Medical History / Comment(s): breast Sister(s) Family Medical History: Cancer Additional Family Medical History / Comment(s): SKIN CA Medications and Allergies Home Medications Medication Instructions Recorded Confirmed Type Celecoxib [CeleBREX] 200 mg PO HS 12/25/13 01/05/23 History Levothyroxine Sodium [Synthroid] 100 mcg PO AC-BRKFST 12/25/13 01/05/23 History Montelukast [Singulair] 10 mg PO HS 08/15/18 01/05/23 History Omeprazole 20 mg PO W/SUPPER 08/15/18 01/05/23 History Pravastatin Sodium [Pravachol] 20 mg PO HS 08/15/18 01/05/23 History Losartan [Cozaar] 12.5 mg PO DAILY 03/08/19 01/05/23 History Albuterol Inhaler [Ventolin Hfa 2 puff INHALATION RT-QID PRN 08/12/22 01/05/23 History Inhaler] Dapagliflozin Propanediol [Farxiga] 5 mg PO DAILY 08/12/22 01/05/23 History Famotidine [Pepcid] 40 mg PO DAILY 08/12/22 01/05/23 History Ipratropium Nebulized [Atrovent 0.5 mg INHALATION RT-Q6H PRN 08/12/22 01/05/23 History Nebulized 0.2 MG/ML] Budesonide/Formoterol Fumarate 2 puff INHALATION RT-DAILY 01/05/23 01/05/23 Hist ory [Symbicort 160-4.5 Mcg Inhaler] Melatonin 10 mg PO HS 01/05/23 01/05/23 History Multivitamins, Thera [Multivitamin 1 tab PO DAILY 01/05/23 01/05/23 History (formulary)] Vitamin B-12(Unknown Dose) 1 tab PO DAILY 01/05/23 01/05/23 History Vitamin D3(Unknown Dose) 1 tab PO DAILY 01/05/23 01/05/23 History Allergies Allergy/AdvReac Type Severity Reaction Status Date / Time cigarette smoke Allergy Unknown Dyspnea Verified 01/05/23 07:53 Opioids - Morphine Analogues Allergy Dyspnea Verified 01/05/23 07:53 tramadol Allergy Anaphylaxis, Verified 01/05/23 07:53 chest pain codeine AdvReac Anaphylaxis, Verified 01/05/23 07:53 chest pain cleaning chemicals AdvReac Mild Dyspnea Uncoded 01/05/23 07:53 Physical Exam Vitals: Vital Signs Temp Pulse Resp BP Pulse Ox 01/05/23 07:49 67 16 116/49 96 01/05/23 03:08 74 16 112/57 98 01/05/23 01:06 97.9 F 139 H 20 115/79 97 Intake and Output 11/01/05/23 01/05/23 22:59 06:59 14:59 Intake Total 9.166 53.34 Balance 9.166 53.34 Intake: Intake, IV Titration 9.166 53.34 Amount Diltiazem 125 mg In 9.166 Sodium Chloride 0.9% 100 ml @ 5 MG/HR 5 mls/hr IV .Q24H [facility] Rx#:[id number] Heparin Sod,Pork in 0.45% 53.34 NaCl 25,000 unit In 0.45 % NaCl 1 250ml.bag @ 12 UNITS/KG/HR 9.144 mls/hr IV .Q24H [facility] Rx#: [id number] Other: Weight 76.204 kg Results 01/05/23 01:40 01/05/23 01:40 Cardiac Enzymes 01/05/23 01/05/23 01/05/23 Range/Units 01:40 01:40 06:50 AST 24 (14-36) U/L Troponin I <0.012 <0.012 (0.000-0.034) ng/mL 01/05/23 Range/Units 09:00 AST (14-36) U/L Troponin I <0.012 (0.000-0.034) ng/mL Coagulation 01/05/23 01/05/23 Range/Units 01:40 09:00 PT 10.0 (10.0-12.5) sec APTT 23.9 56.1 H (22.0-30.0) sec CBC 01/05/23 Range/Units 01:40 WBC 6.4 (3.8-10.6) k/uL RBC 4.15 (3.80-5.40) m/uL Hgb 13.0 (11.4-16.0) gm/dL Hct 39.3 (34.0-46.0) % Plt Count 192 (150-450) k/uL Comprehensive Metabolic Panel 01/05/23 Range/Units 01:40 Sodium 141 (137-145) mmol/L Potassium 3.7 (3.5-5.1) mmol/L Chloride 105 (98-107) mmol/L Carbon Dioxide 25 (22-30) mmol/L BUN 19 H (7-17) mg/dL Creatinine 0.84 (0.52-1.04) mg/dL Glucose 147 H (74-99) mg/dL Calcium 9.1 (8.4-10.2) mg/dL AST 24 (14-36) U/L ALT 20 (4-34) U/L Alkaline Phosphatase 49 (38-126) U/L Total Protein 6.7 (6.3-8.2) g/dL Albumin 4.1 (3.5-5.0) g/dL Current Medications Generic Name Dose Route Start Last Admin Trade Name Freq PRN Reason Stop Dose Admin Apixaban 5 mg 01/05/23 12:00 01/05/23 12:31 Apixaban 5 Mg Tab PO 5 mg BID ILEANA Administration Protocol Dapagliflozin 5 mg 01/06/23 09:00 Dapagliflozin Propanediol 5 Mg Tablet PO DAILY [facility] Losartan Potassium 12.5 mg 01/06/23 09:00 Losartan 25 Mg Tab PO DAILY ILEANA Metoprolol Tartrate 25 mg 01/05/23 12:00 01/05/23 12:31 Metoprolol Tartrate 25 Mg Tab PO 25 mg BID ILEANA Administration Naloxone HCl 0.2 mg 01/05/23 03:16 Naloxone 0.4 Mg/Ml 1 Ml Vial IV Q2M PRN Opioid Reversal Pravastatin Sodium 20 mg 01/05/23 21:00 Pravastatin Sodium 20 Mg Tab PO [facility] Intake and Output 01/04/23 01/05/23 01/05/23 22:59 06:59 14:59 Intake Total 9.166 53.34 Balance 9.166 53.34 Intake: Intake, IV Titration 9.166 53.34 Amount Diltiazem 125 mg In 9.166 Sodium Chloride 0.9% 100 ml @ 5 MG/HR 5 mls/hr IV .Q24H [facility] Rx#:[id number] Heparin Sod,Pork in 0.45% 53.34 NaCl 25,000 unit In 0.45 % NaCl 1 250ml.bag @ 12 UNITS/KG/HR 9.144 mls/hr IV .Q24H [facility] Rx#: [id number] Other: Weight 76.204 kg 01/05/23 01:40 01/05/23 01:40
[2023-01-05] MEDS ORDERED: ALBUTEROL NEBULIZED 2.5 MG/3 ML INHALATION PRN (17:25)
[2023-01-05] MEDS ORDERED: IPRATROPIUM 0.5 MG/2.5 ML NEBU INHALATION PRN (17:25)
--- NOTE | 2023-01-05 17:25 | P.HPIM ---
History of Present Illness H&P Date: 01/05/23 Chief Complaint: Atrial fibrillation with RVR HISTORY OF PRESENT ILLNESS: this is a 72-year-old female with a previous medical history significant for hypertension and hypertensive cardiovascular disease, hyperlipidemia, hypothyroidism, history of mild persistent asthma, diabetes mellitus type 2, also arthritis, GERD, vitamin D deficiency, patient presented to the emergency department at [facility] because of increased palpitations and increased pounding in her head along with low blood pressure that was at around 12 midnight she tried to go back to bed but she ended up waking her to take her to the ER she was found to have atrial fibrilla tion with RVR , she was started on IV cardizem drip and heparin drip , shortly after she converted to sinus rhytm and she was taken off xardizem and heparin and was started on metoprolol 12.5 mg po bid along with Apixaban 5 mg po bid and was admitted to the hospital for unspecified atrial fibrillation and was seen in consultaion by Cardiology and Echocardiogram was done results still pending REVIEW OF SYSTEMS: Constitutional: No documented fever, no chills, no night sweats. No weight change. No weakness, fatigue or lethargy. No daytime sleepiness. HEENT: No headache. No blurred vision or double vision, no loss of vision. No loss of Hearing, no ringing in the ears, no dizziness. No nasal drainage or congestion. No epistaxis. No sore throat. Lungs: positive for shortness of breath, positive for cough, no sputum production. positive for wheezing. Reports dyspnea with activity. Cardiovascular: No chest pain, no lower extremity edema. positive for palpitations. No paroxysmal nocturnal dyspnea. No orthopnea. No lightheadedness or dizziness. No syncopal episodes. Abdominal: Reports no abdominal pain. No nausea, vomiting. No diarrhea. No constipation. No bloody or tarry stools reports loss of appetite. Genitourinary: No dysuria, increased frequency, urgency. No urinary retention. Musculoskeletal: No myalgias. No muscle weakness, no gait dysfunction, no frequent falls. No back pain. No neck pain. Integumentary: No wounds, no lesions. No rash or pruritus. No unusual bruising. No change in hair or nails. Neurologic: No aphasia. No facial droop. No change in mentation. No head injury. positive for headache. No paralysis. No paresthesia. Psychiatric: No depression. No anxiety. No mood swings. Endocrine: No abnormal blood sugars. No weight change. PAST MEDICAL HISTORY: Hypertension and hypertensive cardio vascular disease per Hyperlipidemia. Hypothyroidism. Mild persistent asthma. Diabetes mellitus type 2. Osteoarthritis. GERD. Vitamin D deficiency. PAST SURGICAL HISTORY: cholecystectomy. Partial hysterotomy. Left breast lumpectomy. Partial thyroidectomy. Bilateral shoulder arthroscopic surgery. Colonoscopy 2019 normal SOCIAL HISTORY: patient is a lifelong nonsmoker she denies any alcohol ingestion, no drainage or abuse. She drinks about 1-2 cups of coffee and a daily basis. FAMILY HISTORY: father at age of 73 from lung cancer with brain metastases mother is 94 with a history of CVA left-sided hemiparesis, hypertension and hyperlipidemia, patient has 3 sisters one with CAD post-PCI and the other 2 have eczema patient has 2 sons no major medical problems. PHYSICAL EXAMINATION: General: 72-year-old female laying down in bed in no apparent distress. HEENT: Head is atraumatic, normocephalic, pupils were equal round reactive to light and recommendation, extraocular muscle movement were intact, sclera nonic teric, conjunctivae were pale, mucous membranes of the mouth are somewhat dry. Neck: Supple, no JVP, normal carotid upstroke bilaterally, no lymphadenopathy. Chest: Decreased breath sounds at the bases, few rhonchi, no expiratory wheezes , no chest wall tenderness or intercostal retractions Heart: First heart sound is normal, second heart sound is normal there is CAROLE 2/6 located at the left sternal border Abdomen: Soft, nontender, nondistended, positive bowel sounds. Extremities: There is no edema no calf tenderness DP +2 bilaterally. Neurologic examination: Patient is awake alert and oriented X 3, cranial nerves II-12 appear grossly intact, muscle power were 5 out of 5 in upper extremities and 5 out of 5 in bilateral lower extremities, deep tendon reflexes normal bilaterally. ASSESSMENT AND PLAN: 1. Unspecified atrial Fibrillation with rapid ventricular response. we will continue with Metoprolol 12.5 mg po bid, Eliquis 5 mg po bid along with Losartan 12.5 mg po daily and we will check Echocardiogram for LVF. 2. hypertension and hypertensive cardiovascular disease. Continue patient on losartan 12.5 mg once every day, monitor the patient blood pressure very closely. 3. Hyperlipidemia. Continue pravastatin 20 mg at bedtime. 4. Diabetes mellitus type 2. Continue Farxiga 5 mg orally once every day. 5. Hypothyroidism. Continue levothyroxine 100 mitral gram orally once every day. 6. Vitamin D deficiency. Continue vitamin D supplements. 7. DVT Prophylaxis Continue patient on Eliquis 5 mg po bid. 8. GERD with GI prophylaxis. Continue famotidine 40 mg at bedtime along with Pantoprazole 40 mg po daily 9. Admit to inpatient. Estimate a length of stay 2 midnights. 10. Full code. Past Medical History Past Medical History: Asthma, Diabetes Mellitus, Fibromyalgia, GERD/Reflux, Rheumatoid Arthritis (RA), Thyroid Disorder Additional Past Medical History / Comment(s): covid X2 12/29 History of Any Multi-Drug Resistant Organisms: None Reported Past Surgical History: Bladder Surgery, Cholecystectomy, Heart Catheterization, Hysterectomy, Joint Replacement, Orthopedic Surgery Additional Past Surgical History / Comment(s): partial thyroidectomy. luis shoulder surgery, luis knee arthroscopy, bilateral knee replacement, luis cataracts, rt.trigger finger, Past Anesthesia/Blood Transfusion Reactions: Motion Sickness, Postoperative Nausea & Vomiting (PONV) Additional Past Anesthesia/Blood Transfusion Reaction / Comment(s): DIFFICULTY WAKING UP. PT CAN'T TOLERATE OPIOIDS. WAKES UP AFTER SURGERY WITH CHEST PAIN WHEN EVER GIVEN OPIOIDS. Past Psychological History: No Psychological Hx Reported Smoking Status: Never smoker Past Alcohol Use History: Occasional Past Drug Use History: None Reported - Past Family History Father Family Medical History: Cancer Additional Family Medical History / Comment(s): lung Mother Family Medical History: Cancer Additional Family Medical History / Comment(s): breast Sister(s) Family Medical History: Cancer Additional Family Medical History / Comment(s): SKIN CA Medications and Allergies Home Medications Medication Instructions Recorded Confirmed Type Celecoxib [CeleBREX] 200 mg PO HS 12/25/13 01/05/23 History Levothyroxine Sodium [Synthroid] 100 mcg PO AC-BRKFST 12/25/13 01/05/23 History Montelukast [Singulair] 10 mg PO HS 08/15/18 01/05/23 History Omeprazole 20 mg PO W/SUPPER 08/15/18 01/05/23 History Pravastatin Sodium [Pravachol] 20 mg PO HS 08/15/18 01/05/23 History Losartan [Cozaar] 12.5 mg PO DAILY 03/08/19 01/05/23 History Albuterol Inhaler [Ventolin Hfa 2 puff INHALATION RT-QID PRN 08/12/22 01/05/23 History Inhaler] Dapagliflozin Propanediol [Farxiga] 5 mg PO DAILY 08/12/22 01/05/23 History Famotidine [Pepcid] 40 mg PO DAILY 08/12/22 01/05/23 History Ipratropium Nebulized [Atrovent 0.5 mg INHALATION RT-Q6H PRN 08/12/22 01/05/23 History Nebulized 0.2 MG/ML] Apixaban [Eliquis] 5 mg PO BID #60 tab 01/05/23 Rx Budesonide/Formoterol Fumarate 2 puff INHALATION RT-DAILY 01/05/23 01/05/23 History [Symbicort 160-4.5 Mcg Inhaler] Melatonin 10 mg PO HS 01/05/23 01/05/23 History Metoprolol Tartrate [Lopressor] 25 mg PO BID #180 tab 01/05/23 Rx Multivitamins, Thera [Multivitamin 1 tab PO DAILY 01/05/23 01/05/23 History (formulary)] Vitamin B-12(Unknown Dose) 1 tab PO DAILY 01/05/23 01/05/23 History Vitamin D3(Unknown Dose) 1 tab PO DAILY 01/05/23 01/05/23 History Allergies Allergy/AdvReac Type Severity Reaction Status Date / Time cigarette smoke Allergy Unknown Dyspnea Verified 01/05/23 07:53 Opioids - Morphine Analogues Allergy Dyspnea Verified 01/05/23 07:53 tramadol Allergy Anaphylaxis, Verified 01/05/23 07:53 chest pain codeine AdvReac Anaphylaxis, Verified 01/05/23 07:53 chest pain cleaning chemicals AdvReac Mild Dyspnea Uncoded 01/05/23 07:53 Physical Exam Vitals: Vital Signs Temp Pulse Resp BP Pulse Ox 01/05/23 07:49 67 16 116/49 96 01/05/23 03:08 74 16 112/57 98 01/05/23 01:06 97.9 F 139 H 20 115/79 97 Intake and Output 01/05/23 01/05/23 01/05/23 06:59 14:59 22:59 Intake Total 9.166 53.34 Balance .166 53.34 Intake: Intake, IV Titration 9.166 53.34 Amount Diltiazem 125 mg In 9.166 Sodium Chloride 0.9% 100 ml @ 5 MG/HR 5 mls/hr IV .Q24H ILEANA Rx#:[id number] Heparin Sod,Pork in 0.45% 53.34 NaCl 25,000 unit In 0.45 % NaCl 1 250ml.bag @ 12 UNITS/KG/HR 9.144 mls/hr IV .Q24H ILEANA Rx#: [id number] Other: Weight 76.204 kg Results CBC & Chem 7: 01/05/23 01:40 01/05/23 01:40 Labs: Abnormal Lab Results - Last 24 Hours (Table) 01/05/23 01/05/23 01/05/23 Range/Units 01:40 02:00 09:00 APTT 56.1 H (22.0-30.0) sec BUN 19 H (7-17) mg/dL Glucose 147 H (74-99) mg/dL Urine Glucose (UA) 4+ H (Negative)
[2023-01-05] MEDS ORDERED: PANTOPRAZOLE 40 MG TABLET PO SCH (17:30)
--- NOTE | 2023-01-05 17:41 | CA ---
Transthoracic Echo Report Name: Mary Pierre Age: 72 Gender: F : 1950 Exam Date: 01/05/2023 09:29 Exam Location: [facility] Ht (in): 63 Wt (lb): 169 Ordering Physician: Ramiro Banda MD Attending/Referring Phys: Organ Teacher Sunitha Scanlon RDCS Procedure CPT: Indications: New onset afib Cardiac Hx: Technical Quality: Fair Contrast 1: Total Dose (mL): Contrast 2: Total Dose (mL): MEASUREMENTS (Male / Female) Normal Values 2D ECHO LV Diastolic Diameter PLAX 3.3 cm 4.2 - 5.9 / 3.9 - 5.3 cm LV Systolic Diameter PLAX 2.2 cm IVS Diastolic Thickness 1.3 cm 0.6 - 1.0 / 0.6 - 0.9 cm LVPW Diastolic Thickness 1.5 cm 0.6 - 1.0 / 0.6 - 0.9 cm LV Relative Wall Thickness 0.8 RV Internal Dim ED PLAX 3.1 cm LA Volume 47.7 cm??? 18 - 58 / 22 - 52 cm??? LA Volume Index 25.5 cm???/m??? 16 - 28 cm???/m??? M-MODE Aortic Root Diameter MM 2.3 cm LA Systolic Diameter MM 3.6 cm LA Ao Ratio MM 1.6 AV Cusp Separation MM 1.7 cm DOPPLER AV Peak Velocity 146.8 cm/s AV Peak Gradient 8.6 mmHg AV Mean Velocity 106.3 cm/s AV Mean Gradient 5.0 mmHg AV Velocity Time Integral 31.2 cm LVOT Peak Velocity 122.5 cm/s LVOT Peak Gradient 6.0 mmHg LVOT Velocity Time Integral 24.6 cm MV Area PHT 3.3 cm??? Mitral E Point Velocity 95.5 cm/s Mitral A Point Velocity 53.4 cm/s Mitral E to A Ratio 1.8 MV Deceleration Time 232.4 ms MV E' Velocity 7.4 cm/s Mitral E to MV E' Ratio 12.8 TR Peak Velocity 250.9 cm/s TR Peak Gradient 25.2 mmHg Right Ventricular Systolic Press 29.5 mmHg FINDINGS Left Ventricle Mildly increased left ventricular wall thickness. Left ventricular cavity size normal. Normal left ventricular systolic function with no obvious regional wall motion abnormalities. Left ventricular ejection fraction is estimated at 55-60 %. Right Ventricle Normal right ventricular size. Normal right ventricular size and function. Right Atrium Normal right atrial size. Left Atrium Normal left atrial size. Mitral Valve Structurally normal mitral valve. Mild mitral annular calcification. Mild mitral regurgitation. Aortic Valve No aortic valve stenosis or regurgitation. Tricuspid Valve Structurally normal tricuspid valve. Mild tricuspid regurgitation. Pulmonic Valve Trace pulmonic regurgitation. Pericardium No pericardial effusion. Aorta Normal size aortic root and proximal ascending aorta. CONCLUSIONS Normal LV function Previewed by: Dr. Sean Bhatti MD (Electronically Signed) Final Date: 05 January 2023 17:40
[2023-01-05 19:41] LABS: Glucose,Whole Blood 165 mg/dL (70-110)
[2023-01-05] MEDS ORDERED: PRAVASTATIN SODIUM 20 MG TAB PO SCH (21:00)
[2023-01-05] MEDS ORDERED: MELATONIN 5 MG TABLET PO SCH (21:00)
[2023-01-05] MEDS ORDERED: MONTELUKAST 10 MG TAB PO SCH (21:00)
[2023-01-06 04:17] VITALS: TEMP 97.9
[2023-01-06 06:06] LABS: Glucose,Whole Blood 100 mg/dL (70-110)
[2023-01-06] MEDS ORDERED: LEVOTHYROXINE 100 MCG TAB PO SCH (07:30)
[2023-01-06] MEDS ORDERED: SYMBICORT 160-4.5 MCG INHALER INHALATION SCH (08:00)
[2023-01-06 08:37] LABS: Basophils % (A) 0 %; Eosinophils # (A) 0.4 k/uL (0-0.7); Eosinophils % (A) 5 %; HCT 42.9 % (34.0-46.0); Lymphocytes # (A) 2.4 k/uL (1.0-4.8); Lymphocytes % (A) 34 %; MCH 31.1 pg (25.0-35.0); MCHC 32.6 g/dL (31.0-37.0); MCV 95.5 fL (80.0-100.0); Mean Platelet Volume 8.4; Monocytes # (A) 0.3 k/uL (0-1.0); Monocytes % (A) 4 %; Neutrophils # (A) 3.7 k/uL (1.3-7.7); Neutrophils % (A) 53 %; Platelet Count 236 k/uL (150-450); RDW 12.6 % (11.5-15.5); WBC 6.9 k/uL (3.8-10.6)
[2023-01-06] MEDS ORDERED: VITAMIN B12 PO SCH (09:00)
[2023-01-06] MEDS ORDERED: MULTIVITAMINS, THERA 1 EACH TAB PO SCH (09:00)
[2023-01-06] MEDS ORDERED: LOSARTAN 25 MG TAB PO SCH (09:00)
[2023-01-06] MEDS ORDERED: FAMOTIDINE 20 MG TAB PO SCH (09:00)
[2023-01-06] MEDS ORDERED: NON FORMULARY DRUG (Vitamin D3(Unknown Dose) 1 TAB) PO SCH (09:00)
[2023-01-06] MEDS ORDERED: DAPAGLIFLOZIN PROPANEDIOL 5 MG TABLET PO SCH (09:00)
[2023-01-06] MEDS: APIXABAN 5 MG TAB PO SCH (09:08)
[2023-01-06] MEDS: METOPROLOL TARTRATE 25 MG TAB PO SCH (09:08)
[2023-01-06 09:14] VITALS: BP 112/67; PULSE 72; RESP 16
[2023-01-06 09:20] LABS: African American GFR (CKD) >90 (>60 ml/min/1.73 sqM); Anion Gap 13 mmol/L; Blood Urea Nitrogen 14 mg/dL (7-17); Calcium 9.2 mg/dL (8.4-10.2); Carbon Dioxide 22 mmol/L (22-30); Chloride 106 mmol/L (98-107); Glucose 133 mg/dL (74-99); Non-African American GFR(CKD) 87 (>60 ml/min/1.73 sqM); Sodium 141 mmol/L (137-145)
--- NOTE | 2023-01-06 10:03 | P.DS ---
Providers Date of admission: 01/05/23 03:16 Expected date of discharge: 01/06/23 Attending physician: Ken Ly Consults: 01/05/23 03:16 Consult Physician Routine Consulting Provider: [facility] Consult Reason/Comments: new onset afib Do you want consulting provider notified?: Yes Primary care physician: Ken Ly Hospital Course: HISTORY OF PRESENT ILLNESS: this is a 72-year-old female with a previous medical history significant for hypertension and hypertensive cardiovascular disease, hyperlipidemia, hypothyroidism, history of mild persistent asthma, diabetes mellitus type 2, also arthritis, GERD, vitamin D deficiency, patient presented to the emergency department at [facility] because of increased palpitations and increased pounding in her head along with low blood pressure that was at around 12 midnight she tried to go back to bed but she ended up waking her to take her to the ER she was found to have atrial fibrillati on with RVR , she was started on IV cardizem drip and heparin drip , shortly after she converted to sinus rhytm and she was taken off xardizem and heparin and was started on metoprolol 12.5 mg po bid along with Apixaban 5 mg po bid and was admitted to the hospital for unspecified atrial fibrillation and was seen in consultaion by Cardiology and Echocardiogram was done results still pending 01/06: Patient remains in a sinus rhythm, heart rate in the 50s to 70s, blood pressure 112/67, pulse ox 90% on room air. Afebrile. Repeat blood work reveals CBC unremarkable. Echocardiogram reveals normal LV function. Patient has been cleared for discharge by cardiology pending echocardiogram report which is now available. Patient will be discharged home today in stable condition. DISCHARGE DIAGNOSES: 1. New onset atrial fibrillation/typical atrial flutter with RVR, converted to sinus rhythm. 2. Hypertension and hypertensive cardiovascular disease. 3. Hyperlipidemia. 4. Diabetes mellitus type 2. 5. Hypothyroidism. 6. Vitamin D deficiency. 7. GERD DISCHARGE PLAN: home Greater than 35 minutes was utilized and coordinating patient's discharge. Impression and plan of care have been directed as dictated by the signing physician. Elisa Bain nurse practitioner acting as scribe for signing physician. Patient Condition at Discharge: Stable Plan - Discharge Summary Discharge Rx Participant: No New Discharge Prescriptions: New Apixaban [Eliquis] 5 mg PO BID #60 tab Metoprolol Tartrate [Lopressor] 25 mg PO BID #180 tab Continue Levothyroxine Sodium [Synthroid] 100 mcg PO AC-BRKFST Celecoxib [CeleBREX] 200 mg PO HS Pravastatin Sodium [Pravachol] 20 mg PO HS Omeprazole 20 mg PO W/SUPPER Montelukast [Singulair] 10 mg PO HS Losartan [Cozaar] 12.5 mg PO DAILY Dapagliflozin Propanediol [Farxiga] 5 mg PO DAILY Ipratropium Nebulized [Atrovent Nebulized 0.2 MG/ML] 0.5 mg INHALATION RT-Q6H PRN PRN Reason: Shortness Of Breath Famotidine [Pepcid] 40 mg PO DAILY Vitamin B-12(Unknown Dose) 1 tab PO DAILY Budesonide/Formoterol Fumarate [Symbicort 160-4.5 Mcg Inhaler] 2 puff INHALATION RT-DAILY Albuterol Inhaler [Ventolin Hfa Inhaler] 2 puff INHALATION RT-QID PRN PRN Reason: Shortness Of Breath Multivitamins, Thera [Multivitamin (formulary)] 1 tab PO DAILY Vitamin D3(Unknown Dose) 1 tab PO DAILY Melatonin 10 mg PO HS Discharge Medication List Celecoxib [CeleBREX] 200 mg PO HS 12/25/13 [History] Levothyroxine Sodium [Synthroid] 100 mcg PO AC-BRKFST 12/25/13 [History] Montelukast [Singulair] 10 mg PO HS 08/15/18 [History] Omeprazole 20 mg PO W/SUPPER 08/15/18 [History] Pravastatin Sodium [Pravachol] 20 mg PO HS 08/15/18 [History] Losartan [Cozaar] 12.5 mg PO DAILY 03/08/19 [History] Albuterol Inhaler [Ventolin Hfa Inhaler] 2 puff INHALATION RT-QID PRN 08/12/22 [ History] Dapagliflozin Propanediol [Farxiga] 5 mg PO DAILY 08/12/22 [History] Famotidine [Pepcid] 40 mg PO DAILY 08/12/22 [History] Ipratropium Nebulized [Atrovent Nebulized 0.2 MG/ML] 0.5 mg INHALATION RT-Q6H PRN 08/12/22 [History] Apixaban [Eliquis] 5 mg PO BID #60 tab 01/05/23 [Rx] Budesonide/Formoterol Fumarate [Symbicort 160-4.5 Mcg Inhaler] 2 puff INHALATION RT-DAILY 01/05/23 [History] Melatonin 10 mg PO HS 01/05/23 [History] Metoprolol Tartrate [Lopressor] 25 mg PO BID #180 tab 01/05/23 [Rx] Multivitamins, Thera [Multivitamin (formulary)] 1 tab PO DAILY 01/05/23 [History] Vitamin B-12(Unknown Dose) 1 tab PO DAILY 01/05/23 [History] Vitamin D3(Unknown Dose) 1 tab PO DAILY 01/05/23 [History] Follow up Appointment(s)/Referral(s): Nima Mccabe MD [STAFF PHYSICIAN] - 1 Week Ken Ly MD [Primary Care Provider] - 1 Week Discharge Disposition: HOME SELF-CARE
== END 2023-01-06 11:17 | disposition home or self-care (01) ==
LOC: EC 01:02 → 3SCARD 03:16 → INTOOBSV 03:16 → 3SCARD 05:38 → UNDODISIN 01-06 11:17
PROVIDERS: ADMIT Internal Medicine; ATTEND Internal Medicine
DX: I48.91 Unspecified atrial fibrillation (principal); I48.3 Typical atrial flutter; I11.9 Hypertensive heart disease without heart failure; E78.5 Hyperlipidemia, unspecified; E03.9 Hypothyroidism, unspecified; E11.9 Type 2 diabetes mellitus without complications; M19.90 Unspecified osteoarthritis, unspecified site; K21.9 Gastro-esophageal reflux disease without esophagitis; J45.30 Mild persistent asthma, uncomplicated; E55.9 Vitamin D deficiency, unspecified; M79.7 Fibromyalgia; M06.9 Rheumatoid arthritis, unspecified; Z86.16 Personal history of COVID-19; Z79.899 Other long term (current) drug therapy; Z79.84 Long term (current) use of oral hypoglycemic drugs; Z79.890 Hormone replacement therapy; Z88.5 Allergy status to narcotic agent; Z91.048 Other nonmedicinal substance allergy status; Z90.49 Acquired absence of other specified parts of digestive tract; Z80.3 Family history of malignant neoplasm of breast; Z82.49 Family history of ischemic heart disease and other diseases of the circulatory system; Z82.3 Family history of stroke; Z80.1 Family history of malignant neoplasm of trachea, bronchus and lung; Z80.8 Family history of malignant neoplasm of other organs or systems; Z84.0 Family history of diseases of the skin and subcutaneous tissue
CPT/HCPCS: 96376; 96368; 96365; 96366; 96367; 99291; 36415; 94640; 93005; 93306; 85379; 83880; 80053; 80048; 83735; 84443; 84484; 85025 ×2; 85610; 85730; 81003; 87636; 71046; G0378 ×2; J1644 ×2; 96361; 96375

== ENCOUNTER → 2023-09-24 | Emergency (ER) | payer MEDICARE ==
[~2023-09-24] MED LIST changes: +FLUORESCEIN STRIPS 1 MG STRIP ONE; -LACTATED RINGERS 1,000 ML IV SCH; -LIDOCAINE 1% 20 ML VIAL (10MG/ML) FOR IV START INTRADERMA PRN; +POLYMYXIN B-TRIMETHOPRIM SULF (10,000-1) OPHTH DROPS 10 ML BTL ONE; +PROPARACAINE 0.5% OPHTH DROPS 15 ML BTL ONE
== END ==
LOC: EC 18:16
DX: H57.9 Unspecified disorder of eye and adnexa (principal)
CPT/HCPCS: 99282

== ENCOUNTER → 2023-10-05 | Outpatient (CLI) | payer MEDICARE ==
--- NOTE | 2023-10-11 12:14 | MM ---
Reason for Exam: Screening (asymptomatic). Last mammogram was performed 1 year(s) and 2 month(s) ago. Patient History: Menarche at age 13. First Full-Term at age 25. Left ovary removed at age 31. Right ovary removed at age 31. Hysterectomy at age 31. Postmenopausal. Estrogen for 12 years from age 46 until age 58. Cyst Aspiration on the Right side. Excisional Biopsy on the Left side. 03/19/2019, Benign Core Biopsy on the right side. Maternal cousin had breast cancer, age 55. Maternal aunt had breast cancer, age 50. Mother had breast cancer, age 77. Risk Values: Chasidy 5 year model risk: 5.0%. NCI Lifetime model risk: 13.3%. Prior Study Comparison: 05/13/2020 Bilateral Screening Mammogram, [facility]. 07/27/2021 Bilateral MG 3D screening mammo w/cad, [facility]. 07/28/2022 Bilateral MG 3D screening mammo w/cad, [facility]. Tissue Density: There are scattered areas of fibroglandular density. Findings: Analyzed By CAD. Right breast biopsy clip. Right breast: There is no suspicious group of microcalcifications or new suspicious mass. Left breast: There is no suspicious group of microcalcifications or new suspicious mass. Overall Assessment: Negative, BI-RAD 1 Management: Screening Mammogram of both breasts in [address] [facility] will attempt to contact patient to return for supplemental views and ultrasound if indicated. Patient should continue monthly self-breast exams. A clinical breast exam by your physician is recommended on an annual basis. This exam should not preclude additional follow-up of suspicious palpable abnormalities. Note on Chasidy scores and lifetime risk: 1. A Chasidy score greater than 3% is considered moderate risk. If this is the case, consider specialist referral to assess eligibility for a risk reducing agent. 2. If overall lifetime risk for the development of breast cancer is 20% or higher, the patient may qualify for future screening with alternating mammogram and breast MRI. Electronically signed and approved by: Bryan Paulino DO
== END | disposition home or self-care (01) ==
LOC: RADMAMWWP 12:35
PROVIDERS: ATTEND Internal Medicine
DX: Z12.31 Encounter for screening mammogram for malignant neoplasm of breast
CPT/HCPCS: 77063; 77067